=== PATIENT | female | born 1945 | race Caucasian/White ===

== ENCOUNTER → 2018-03-20 10:25 | Outpatient (CLI) | payer MEDICARE, OTHER, SELFPAY ==
--- NOTE | 2018-03-20 10:30 | BI_ITS ---
MAMMOGRAPHY - BILATERAL SCREENING REASON FOR EXAM: Female, 73 years old. Routine annual screening examination. PERTINENT HISTORY: Non-contributory. TECHNIQUE: Digital bilateral breast laura (3D mammographic acquisition) in the CC and MLO projections. 2-D mediolateral oblique (MLO) and craniocaudad (CC) views of both breasts were obtained. CAD: Full Field Digital Mammography with Computer Added Detection was performed. COMPARISON: Comparison is made with prior study dated February 21, 2017 and December 15, 2015. FINDINGS: Breast Composition: There are scattered areas of fibroglandular density. There are no dominant masses or suspicious calcifications. Stable small bilateral axillary lymph nodes. No other significant abnormalities are identified. There has been no significant change since the prior study. BI/SCREENING MAMM (CAD), BILAT IMPRESSION: Stable bilateral screening mammogram. Yearly follow-up mammogram recommended. (A) ASSESSMENT CATEGORY: BIRADS Category 2: Benign. A letter regarding these results will be sent to the patient by the facility within 30 days. Approximately 10% of breast cancers are not detected by mammography. A normal mammogram should not delay biopsy of a clinically suspicious abnormality. [id number] Electronically Signed: Sherman Donovan MD at 12:59 EST Tel [phone], Service support ,
== END ==
PROVIDERS: Family Provider Family Medicine; PCP Family Medicine; Referring Provider Obstetrics & Gynecology; Visit Provider Obstetrics & Gynecology
DX: Z12.31 Encounter for screening mammogram for malignant neoplasm of breast (principal)
CPT/HCPCS: 77063; 77067

== ENCOUNTER → 2019-05-14 | Outpatient (CLI) | payer MEDICARE, OTHER, SELFPAY ==
--- NOTE | 2019-05-14 08:30 | BI_ITS ---
MAMMOGRAPHY - BILATERAL SCREENING REASON FOR EXAM: Female, 74 years old. Routine annual screening examination. PERTINENT HISTORY: Non-contributory. TECHNIQUE: Digital bilateral breast bhumi (3D mammographic acquisition) in the CC and MLO projections. 2-D mediolateral oblique (MLO) and craniocaudad (CC) views of both breasts were obtained. CAD: Full Field Digital Mammography with Computer Added Detection was performed. COMPARISON: Comparison is made with prior study dated March 20, 2018 and February 21, 2017. FINDINGS: Breast Composition: There are scattered areas of fibroglandular density. There are no dominant masses or suspicious calcifications. Stable small benign-appearing bilateral axillary lymph nodes. No other significant abnormalities are identified. There has been no significant change since the prior study. BI/SCREEN MAMM (CAD) W/BHUMI BILAT IMPRESSION: Stable bilateral screening mammogram. Yearly follow-up mammogram recommended. (A) ASSESSMENT CATEGORY: BIRADS Category 2: Benign. A letter regarding these results will be sent to the patient by the facility within 30 days. Approximately 10% of breast cancers are not detected by mammography. A normal mammogram should not delay biopsy of a clinically suspicious abnormality. [id number] Electronically Signed: Sherman Donovan, at 10:20 EST , Service support ,
== END | disposition home or self-care (01) ==
LOC: OPBI 08:27
PROVIDERS: Family Provider Family Medicine; PCP Family Medicine; Referring Provider Obstetrics & Gynecology; Visit Provider Obstetrics & Gynecology
DX: Z12.31 Encounter for screening mammogram for malignant neoplasm of breast (principal)
CPT/HCPCS: 77063; 77067

== ENCOUNTER → 2019-12-31 | Outpatient (CLI) | payer MEDICARE, OTHER, SELFPAY ==
--- NOTE | 2019-12-31 15:45 | CT_ITS ---
ACR Level 3 findings have been noted. An addendum which confirms receipt of the report will follow. STUDY: CT RIGHT SHOULDER REASON FOR EXAM: Right shoulder pain. TECHNIQUE: The patient was scanned in a multi detector CT scanner. High resolution transaxial imaging was performed without the administration of intravenous contrast material. Sagittal and coronal images were reconstructed. Individualized dose optimization techniques were used for this CT. COMPARISON: MRI images 03/24/2012. FINDINGS: There is glenohumeral arthrosis with marginal osteophytes of the humeral head, mild subchondral cystic change of the glenoid and joint space narrowing (axial images 21-28). There are anchors in the humeral head. Status post subacromial decompression/excision of the distal clavicle. There is a small nodule in the right lung base (axial image 227) measuring 0.3 cm in greatest dimension. CT/Extremity Upper without Contra IMPRESSION: Glenohumeral arthrosis. Small pulmonary nodule in the right lung base (a follow-up CT in 12 months should be considered if the patient is high risk, no routine follow-up is necessary if the patient is low risk according to the Fleischner Society pulmonary nodule recommendations). Electronically Signed: Adam Brito MD at 11:42 EDT Tel , Service support ,
== END | disposition home or self-care (01) ==
LOC: CT 15:29
PROVIDERS: PCP Family Medicine; Referring Provider Specialist; Visit Provider Specialist
DX: M19.211 Secondary osteoarthritis, right shoulder (principal)
CPT/HCPCS: 73200

== ENCOUNTER → 2020-07-15 13:12 | Outpatient (CLI) | payer MEDICARE, OTHER, SELFPAY ==
[2020-06-24 10:11] VITALS: BMI 31.6
--- NOTE | 2020-07-15 13:14 | BI_ITS ---
MAMMOGRAPHY - BILATERAL SCREENING REASON FOR EXAM: Female, 75 years old. Routine annual screening examination. PERTINENT HISTORY: Non-contributory. TECHNIQUE: Digital bilateral breast bhumi (3D mammographic acquisition) in the CC and MLO projections. 2-D mediolateral oblique (MLO) and craniocaudad (CC) views of both breasts were obtained. CAD: Full Field Digital Mammography with Computer Added Detection was performed. COMPARISON: Comparison is made with prior examination dated 05/14/2019 and 03/20/2018. FINDINGS: Breast Composition: There are scattered areas of fibroglandular density. There are no dominant masses or suspicious calcifications. Stable benign-appearing bilateral axillary lymph nodes. No other significant abnormalities are identified. There has been no significant change since the prior study. BI/SCRN MAMM (CAD)W/BHUMI BILAT IMPRESSION: Stable bilateral screening mammogram. Yearly follow-up mammogram recommended. (A) ASSESSMENT CATEGORY: BIRADS Category 2: Benign. A letter regarding these results will be sent to the patient by the facility within 30 days. Approximately 10% of breast cancers are not detected by mammography. A normal mammogram should not delay biopsy of a clinically suspicious abnormality. [id number] Electronically Signed: Sherman Donovan MD at 14:23 EDT , Service support ,
--- NOTE | 2020-07-15 13:19 | BD_ITS ---
STUDY: DUAL ENERGY X-RAY ABSORPTIOMETRY / DXA REASON FOR EXAM: Female, 75 years old. Estrogen deficiency TECHNIQUE: Bone Mineral Density (BMD) measurements of lumbar spine and bilateral hips were obtained. COMPARISON: None. FINDINGS: Lumbar Spine (L1-L4): g/cm2 (0.992) / T-score (-1.4) / Z-score (0.3) Findings are suggestive of osteopenia with a low fracture risk. Left Femur Total: g/cm2 (0.779) / T-score (-1.8) / Z-score (-0.2) Left Femoral Neck: g/cm2 (0.797) / T-score (-1.7) / Z-score (0.1) Right Femur Total: g/cm2 (0.790) / T-score (-1.7) / Z-score (-0.1) Right Femoral Neck: g/cm2 (0.760) / T-score (-2.0) / Z-score (-0.2) BD/Dexa Bone Density Study IMPRESSION: The patient is considered osteopenic as outlined below according to World Chase Organization (WHO) criteria with a moderate fracture risk. Reference Information: The T-score is the number of standard deviations above or below the standard which is normal for young adults at their peak bone mineral density. The World Health Organization (WHO) interprets the T-scores as follows: Above -1 Normal bone density Between -1 and -2.5 Osteopenia Equal to / or below -2.5 Osteoporosis As a practical clinical guideline, osteopenia may be graded as follows: Mild -1 through -1.5 Moderate -1.6 through -2.0 Severe -2.1 through -2.4 The Z-score is the number of standard deviations above or below age-matched controls. A Z-score of less than -1.5 would be considered abnormal. References: 1. NIH Osteoporosis and Related Bone Diseases www osteo.org 2. International Society for Clinical Densitometry www iscd.org 3. National Osteoporosis Foundation www nof.org Electronically Signed: Sherman Donovan MD at 9:41 EDT , Service support ,
== END ==
PROVIDERS: PCP Family Medicine; Referring Provider Obstetrics & Gynecology; Visit Provider Obstetrics & Gynecology
DX: E28.39 Other primary ovarian failure (principal); Z12.31 Encounter for screening mammogram for malignant neoplasm of breast; Z78.0 Asymptomatic menopausal state
CPT/HCPCS: 77063; 77067; 77080

== ENCOUNTER 2021-03-24 13:48 | Outpatient (CLI) | payer MEDICARE, OTHER, SELFPAY ==
--- NOTE | 2021-03-24 13:52 | CT_ITS ---
STUDY: CT SCAN SHOULDER LEFT REASON FOR EXAM: Female, 76 years old. PREOP. Prior rotator cuff surgery. Continued pain. Limited range of motion. RADIATION DOSAGE (If Supplied By Facility): CTDIvol = ( 31.68 ) mGy, DLP = ( 600.47 ) mGycm. Individualized dose optimization techniques were used for this CT.? TECHNIQUE: Multiple axial tomographic images were obtained without intravenous contrast administration. Coronal and sagittal reconstruction was obtained as well. COMPARISON: None. FINDINGS: Metallic clips are seen in the humeral head in keeping with history of prior rotator cuff surgery. Marked degree of joint space narrowing at the glenohumeral joint with degenerative spur formation along the medial inferior aspect of the humeral head in the glenoid. There is evidence of a subchondral cystic changes in the humeral head as well as the glenoid. No evidence of subluxation. CT/Extremity Upper without Contra IMPRESSION: Moderate degree of joint space narrowing of the glenohumeral joint with spur formation and subchondral cystic changes. Metallic anchors in the humeral head in keeping with the patient''s history of prior rotator cuff surgery. Electronically Signed: Sherman Donovan MD at 14:29 EST , Service support ,
== END 2021-03-24 23:59 | disposition short-term general hospital (02) ==
LOC: CT 13:51
PROVIDERS: PCP Family Medicine; Referring Provider Specialist; Visit Provider Specialist
DX: M19.212 Secondary osteoarthritis, left shoulder (principal)
CPT/HCPCS: 73200

== ENCOUNTER 2021-05-13 07:04 | Observation (INO) | payer MEDICARE, OTHER, SELFPAY ==
--- NOTE | 2021-04-27 13:14 | HP.PCM_ITS ---
History and Physical History and Physical [facility] Patient Name: Sandhya Finn : 1945 From: ELIZABETH ROBERTSON PA-C DATE OF SURGERY: 05/13/2021 SCHEDULED PROCEDURE: left reverse total shoulder arthroplasty HISTORY OF PRESENT ILLNESS: Preoperative history and physical exam was performed on April 27, 2021. This is a 76-year-old female who is had ongoing pain in her left shoulder for several years. Patient is right-hand dominant. Patient has undergone a previous right reverse total shoulder arthroplasty by Dr. Saurabh Gunn on February 29, 2020. She is doing well from that procedure. Her left shoulder is continuing to give her problems with activities of daily living. She has difficulty getting dressed and doing her hair secondary to the pain. Patient's pain can reach a size N8/10 with activities. She states the pain has been progressively been getting worse over the past 1 year. Pain does awaken her at nighttime. She has also had a previous left shoulder arthroscopy with rotator cuff repair with Dr. Hussain Beaulieu in 2016. She feels weaker with the left shoulder. She has tried nonsteroidal anti-inflammatories, rest, home exercises without relief in symptoms. After failing conservative measures and discussing treatment options with Dr. Saurabh Gunn, the patient does wish to proceed with a left reverse total shoulder arthroplasty. Patient has a medical history pertinent for hypertension. We are obtaining surgical clearance from primary care physician Dr. Rodgers. She denies any recent chest pain, shortness of breath, fevers chills or recent infections REVIEW OF SYSTEMS: ROS: Const: Denies anorexia, anxiety, change in appetite, fever and weight change,hard of hearing, and vision problems. CV: Denies chest pain, heart murmur, irregular heartbeat and peripheral vascular disease. Resp: Denies asthma, cough, pneumonia, sleep apnea, shortness of breath, tuberculosis and wheezing. GI: Denies constipation, diarrhea, heartburn, nausea, bloody stools and vomiting, and difficulty swallowing. : Denies female genital problems. Denies incontinence. Musculo: Denies leg swelling, trouble walking and weakness and limp. Skin: Denies Raynaud's, history of shingles and tattoo. Neuro: Denies ambulatory dysfunction, dizziness, numbness/tingling and tremor. Psych: Denies anxiety, depression, insomnia, mental illness and stress. Floyd/Lymph: Denies anemia, bleeding/bruising tendency and past transfusion. Reviewed and updated. PAST MEDICAL HISTORY: Advance Care Plan: Other Directive, LIVING WILL Effective Date: 08/21/2015 Other Directive, P.O.A Effective Date: 08/21/2015 PMH: Medical Problems: Arthritis, High Blood Pressure Cancer - Skin Possible Scoliosis, Psoriasis, Covid-19 Vaccinated, pulmonary nodule, restless leg, Hypercholesterolemia Accidents: None Surgical Hx: Pilonidal Cyst - (1963) Tubal Ligation - 1977, [facility] Hysterectomy - (1994) Carpal Tunnel - (05/29/2007) DR. BEAULIEU, [facility] RT Shoulder Arthroscopy W/Rotator Cuff Repair - (05/26/2012) [facility] @ [facility] Shoulder Arthroscopy LT - (10/15/2015) [email or web address] Shoulder Replacement RT - (02/19/2020) [facility] AT [facility] Anesthesia Complications: None Assistive Devices: Glasses - READING Reviewed and updated. SOCIAL HISTORY: SH: Marital: .Occupation: Retired.Work Status: Retired.Hand Dominance: Right- handed. Personal Habits: Tobacco Use: Patient has never smoked.Cigarette Use: Never.Smokeless Tobacco: Never Used Smokeless Tobacco.E-Cigarette Use: Never used.Alcohol: Occasionally.Drug Use: Denies Use.Enjoy Exercising: Daily. Reviewed and updated. VITALS: Ht: 64 Wt: 180lb Wt k.648 BMI: 30.9 BP: 124/82 Pulse: 66 Resp: 14 T: 97.5 T: 36.4C Pain Level: 9 ALLERGIES: Sulfa - Sick Sulfa Drug Atorvastatin MEDICATIONS: Multivitamins 1 po qday, Radha 180 mg 1 PO qdaily, Baby Aspirin 81 mg 1 tab PO daily, Calicum+D 1 tab PO daily, Biotin 5000 mcg 1po qday, Quinapril HCL 40 mg 1 tab PO daily, Rosuvastatin Calcium 20 mg 1po qday, Prevagen 10 mg 1po qday PRE-OP EXAM: General appearance:NORMAL Other: Eyes: Conjunctivae and lids: NORMAL Pupils: ERR Ears, Nose, Mouth, and Throat: NORMAL Other: Inspection of lips, teeth and gums: NORMAL Other: Neck: Examination of neck: no masses noted. Respiratory: Assessment of respiratory effort: NORMAL Other: Auscultation of lungs: clear to auscultation no wheezes, rhonchi or rales. Cardiovascular: Auscultation of heart: regular rate and rhythm, no murmurs, gallops or rubs. PHYSICAL EXAMINATION: Left shoulder is cool to touch without erythema or signs of infection. Previous arthroscopic incisions are well-healed without erythema or infection. She does get crepitus with range of motion of the left shoulder. She has tenderness to palpation of the anterior and lateral left shoulder. Range of motion: Forward elevation 130 on the left, external rotation 30 on the left, internal rotation T9 on the right and L2 on the left. Resisted range of motion: 4/5 on the left involving supraspinatus and internal rotation. Sensation intact to light touch axillary, radial, median, ulnar nerve distribution. IMAGING STUDIES: Previous x-rays of the left shoulder reveals severe glenohumeral joint space narrowing with subchondral sclerosis and osteophyte formation consistent with stage IV osteoarthritis. Previous anchors from rotator cuff repair are present. IMPRESSION: 1. Severe left shoulder glenohumeral osteoarthritis 2. Hypertension 3. History of skin cancer 4. Psoriasis 5. History of pulmonary nodule 6. Restless leg syndrome 7. Hypercholesterolemia PLAN: Dr. Saurabh Gunn did discuss and review with the patient all treatment options including surgical versus nonsurgical options. Patient does wish to proceed with the above-stated procedure. Potential risks, benefits, and complications of the procedure were discussed in detail including but not limited to , infection, nerve and blood vessel damage, persistent pain, numbness, tingling, paresthesias, blood clot, pulmonary embolism, and requirement for possible further surgery. The patient expressed full understanding and has no further questions for the doctor. Patient does agree to proceed with the above-stated procedure and has signed the surgery consent form. We discussed the current risks associated with COVID 19. This does include the risk of exposure while in the hospital. Patient was reassured local hospitals have low infection rates and are taking all necessary precautions to avoid exposure to patients. In addition, we discussed strategies that can be used to help limit exposure including those that limit the patient's time in the hospital. Also using strategies to limit the patient's need for continued inpatient services after being discharged from the hospital. Patient was notified that we will need to comply with any screening or testing the hospital wishes to perform or that surgery may be delayed for any positive results. This dictation was created using voice recognition software. Phonetic and/or grammatical errors may exist. ___ I have re-examined the patient. There are no clinical changes since date of exam. ___ See progress notes for changes. ___ Dictated on admission Date: Time: Signature:
[2021-05-01 10:52] LABS: Magnesium 2.2 mg/dL (1.6-2.6)
[2021-05-13] VITALS (12 sets, daily range): BP systolic 131–148; BP diastolic 74–84; PULSE 63–97; RESP 16–18; TEMP 36.2–37; O2SAT 93–100; BMI 31.6; BMI 31.5
[2021-05-13] MEDS: Lactated Ringers 1,000 ML 999 ML IV ×2 (06:40→11:15)
[2021-05-13] MEDS: Acetaminophen 500 MG Tablet 1000 MG PO ×3 (06:55→21:27)
[2021-05-13] MEDS: Celecoxib 200 MG Capsule 400 MG PO (06:56)
[2021-05-13] MEDS: Gabapentin 600 MG Tablet PO (06:56)
--- NOTE | 2021-05-13 07:30 | OP.PCM_ITS ---
Report of Operation Pre-Operative Diagnosis: Right knee primary osteoarthritis Post-Operative Diagnosis: Right knee primary osteoarthritis Surgery/Procedure Performed:: Right minimally invasive computer navigated total knee replacement Description of Surgical Findings:: Stable knee with good patella tracking Surgeon: Saurabh Gunn fork operator: Ross Burris Type of Anesthesia: Spinal Anesthesiologist: Gaurav Cerda Special Medications: 2 g Ancef, 1 g TXA at incision, 1 g TXA closure, 10 mg Decadron, joint cocktail (5 mg Duramorph, 30 mL of 0.5% Ropivicaine, 1000 units of epinephrine, 30 mg of Toradol) Specimen's removed: Bony cuts Description of Procedure: Implants used: 1. [employer] cemented distal femur: 2. [employer] tibial baseplate: 3. [employer] polyethylene: 4. [employer] patella component: Brief history operative indications: 76-year-old F with history of right knee osteoarthritis with radiographic findings with loss of joint space, osteophyte formation and subchondral sclerosis. Failed conservative measures as mentioned in the H&P. Discussion of total knee arthroplasty as well as risk and benefits were discussed the patient including but not limited to blood loss, DVTs, PEs, neurovascular damage, general risk of anesthesia including loss of life, and stiffness or instability were discussed with patient. Patient demonstrated understanding and was able to sign informed consent. Patient had allergies to nickel so we elected to proceed with a computer navigated nickel free knee. Procedure: On the date of procedure patient's right lower extremity was marked in the preoperative area. The patient was then taken back to the operating room where the patient was placed on the table in the supine position. All bony prominences were identified a well-padded. Anesthesia assumed control of the C-spine and airway and remained controlled throughout the remainder of the procedure. A tourniquet was placed on the right upper thigh and the leg was prepped in a sterile fashion. The surgeon then scrubbed at this time. Upon reentering the room the right lower extremity was draped in a standard orthopedic fashion. A timeout was then called and everyone agreed upon the side, the site, the procedure to be performed, patient's identity and antibiotics given. Esmarch bandage was used to exsanguinate the extremity and the tourniquet was placed up to 250 mmHg with the knee in flexion. A midline skin incision was made and sharp dissection was taken down through skin subcutaneous tissue and fat. The standard medial parapatellar incision was made and the patella was subluxed laterally. The standard deep MCL release was done and the fat pad was resected. Next our attention was directed to the femur. Navigation pins were placed, navigation was registered. The distal femoral cutting block was pinned into plac e and [] mm of distal femur resection was completed. The distal femoral cut was verified with navigation. The knee was then placed in deep flexion in the standard [employer] sizing guide was used to place the femoral component in 3? external rotation based on the posterior condyles. A size [] 4-in-1 cutting block was selected and pinned into place. The anterior cut was then made and checked for notching. The subsequent anterior chamfer cuts, posterior condylar cuts and posterior chamfer cuts were made while ensuring the MCL and LCL were protected. Our attention was then turned to the tibia where the navigation pins were placed, navigation was registered. [employer] tibial cutting guide was used to make the appropriate tibial cut 90 degrees from the mechanical axis. Navigation was then used to verify the cut. A size [] tibial base plate was selected. the knee was flexed to 90 degrees and the soft tissues and posterior osteophytes were removed from the joint. 40 cc of the periarticular injection was injected into the posterior medial corner of the joint. The appropriate trials were then placed on the femur and tibia. A trial polyethylene was trialed to ensure proper balancing and stability of the knee. Patella tracking, was then verified and corrected appropriately as needed. The appropriate tibial internal rotation was then marked with a bovie. Our attention was then directed to the patella. The patella was everted and a flat resection was made. The lug holes were drilled and the patella trial was placed. Patellar tracking was checked and deemed appropriate. Once we were happy lug holes were drilled for the femur and trial components were removed. the tibia was subluxed and pinned into place and the keel was punched and the canal was reamed. Final components were verified and opened, and cement was mixed in a vacuum. Sukh[employer] cement was used. The wound was copiously irrigated with normal saline. When the cement was ready the components were cemented into place starting with the tibia, femur and finally the patella. The trial poly component was placed and the knee was placed in full extension. All excess cement was removed in the process. Once the cement had cured the tracking, alignment and balance were verified and a size [] mm polyethylene component was placed. Once the final components were placed the wound was copiously irrigated with normal saline solution and the periarticular injection was given. The wound was closed in a layer pedraza fashion using #1 vicryl interrupted sutures for the arthrotomy, 2-0 interrupted Vicryl suture for the subcuticular layer and yaima for final skin closure. A sterile compressive dressing was then placed. The patient was then awakened from anesthesia, transferred to the [facility] and transferred to the PACU for recovery. Post op plan DVT ppx: ASA 81mg BID, thigh high compression stockings Follow up: in office in 2 weeks for wound check PT: to start POD #0 at hospital, outpatient PT should be arranged. My physician journeyman operator assistant was a vital part of this case. He was important in appropriate retraction during the case, and protection of soft tissues during bony cuts. His intimate knowledge of the case and my steps aided in safe and expedient completion of the procedure as well as appropriate position of the leg during the case. He was also vital in assisting with closure under my direct supervision. Due to the complexity of this case robotic arm was used to assist in the surgery to improve accuracy and clinical outcomes. Complications No intraoperative complications Admit VTE Documentation VTE Present on Admission: No VTE Mechan Device Prophylaxis: SCD's and Thigh High HAILE Hose VTE Pharm Prophylaxis ordered?: Yes
[2021-05-13] MEDS: Cefazolin 2 GM in 0.9% Normal Saline 100 ML IV (08:55)
[2021-05-13] MEDS: TXA 1000mg in NS100 100ml (IVPB at Incision) 660 MG IV (09:05)
--- NOTE | 2021-05-13 10:28 | OP.PCM_ITS ---
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 [place] reunion glenoid baseplate 2. Sukhdeep reunion 36 mm, 2 mm, eccentric 2 mm Glenosphere 3. Sukhdeep reunion 36mm, 4mm humeral liner 4. [place] reunion reverse TSA humeral adapter tray 2mm 5. [place] reunion humeral stem primary press-fit 16mm size Brief history/Operative indications: 76 yo f with history of left shoulder pain and cuff tear arthropathy. Patient failed conservative measures as mentioned in the H&P. After discussion of risk and benefits of reverse total shoulder replacement including but not limited to blood loss, DVTs, PEs, nerve vessel damage, infection, general risk of anesthesia including loss of life, instability and stiffness patient demonstrating understanding wish to proceed was able to sign informed consent. Medical clearance was obtained. Procedure: On the date of the procedure, patient's left upper extremity was marked in the preoperative area. Patient was taken back to the operating room where they were placed on the table in the supine position. Anesthesia assumed control of the C-spine and airway, then administered anesthetic. All bony prominences were identified well-padded, the head was secured and the patient was placed in the beachchair position at about 35? inclination. Anesthesia remained in control of the C-spine airway throughout the remainder of the procedure. Patient was then appropriately fastened to the table and the left upper extremity was prepped in a sterile fashion. The surgeons then scrubbed. Upon reentering the room, the left upper extremity was draped in a sterile fashion and the incision was marked out. Timeout was called, everyone agreed upon the side, the site, the procedure to be performed, patient identity and antibiotics given. Incision was taken down through skin and subcutaneous tissue, fat down to fascia. The stripe of the deltopectoral interval and cephalic vein were identified and blunt dissection was used to retract the deltoid. The cephalic vein was retracted laterally. Clavipectoral fascia was then incised and a cobra retractor was placed in the wound. The proximal one third of the pectoralis major insertion was released. Pectoralis tendon insertion was used to tenodesed the biceps tendon which was identified in the bicipital groove. Tenodesis was done with #1 Vicryl. Proximally we followed the biceps tendon after transecting it into the rotator interval. The rotator interval was split and the arm was externally rotated. The split was 1 cm medial to the bicipital groove. Subscapularis tendon was released. We released down the anterior portion of the humeral head and a muhammad elevator was used to release the inferior portion of the humeral head. The arm was externally rotated and the shoulder was dislocated. The humeral head was then cut at its natural retroversion. Once his humeral head cut was made humerus was retracted out of the way and the glenoid was exposed. After exposing the glenoid, the labrum and the remaining proximal biceps were debrided. At this time we are able to view the entire outer edge of the glenoid. A central pin was placed we sequentially reamed over this central pin to 36mm. Once this was completed the central screw was measured and found to be. The glenoid baseplate was screwed into place. Wound was closely irrigated out with normal saline we then drilled sequentially for 2 screws. Screws were placed superiorly and inferiorly and tightened down the screws. Once the screws were appropriately tightened into place the glenoid baseplate was compressed against the exposed subchondral bone. A 36mm glenosphere was impacted into place engaging the West taper. Attention was then turned towards the humerus. The humerus was again externally rotated exposing the proximal portion of the humerus. Central canal finder was then used to open up the canal. We reamed to a 16mm reamer. We then broached to a 16mm stem. We trialed the 4mm liner, with the 2mm humeral baseplate. We obtained an adequate reduction at this time with a nice stable shoulder. Good internal rotation to the gluteus, forward elevation to 140?, external rotation to 20?. Final components were then assembled on the back table, trials were removed and the wound was copiously irrigated with normal saline after dislocating the shoulder. Once the final components were assembled they were impacted into place. Shoulder was then reduced and found to be stable with good range of motion. Subscapularis tendon was repaired with a #2 FiberWire suture. The wound was with chlorhexidine solution then copiously irrigated out with a 1 L normal saline lavage. The deltopectoral fascia was then closed using #1 Vicryl skin was closed using 2-0 Vicryl interrupted sutures and final skin closure was done with 3-0 Monocryl. Steri-Strips are placed for final skin closure. Sterile dressing was placed patient was then placed in a sling and awakened by anesthesia. Patient was then transferred to the PACU for recovery. Postoperative plan: Patient will be admitted to the hospital overnight. They will get physical therapy starting in 2 weeks with normal postoperative regimen. Patient will be placed on aspirin 81 mg twice daily for DVT prophylaxis. The first posto perative appointment will be in 2 weeks for wound check and initiation of phase 1 physical therapy. During the course of the procedure the physician assistant offset press operator played a vital role. His intimate knowledge of my steps in the procedure aided in safe and expedient completion of the procedure. The PA played a vital rolls in positioning particularly in obtaining the appropriate beach chair position and securing the patient's body and head to the table. The PA was also vital in the retraction of soft tissues during the exposure and especially the glenoid work as this is a vital part of the procedure to prevent neurovascular damage. the PA was also vital and protecting soft tissues during times of bony cuts and reaming. He also played a vital role in closure with my direct supervision. The PA was also important during reduction and dislocation of the joint and trials intraoperatively. Complications No intraoperative complications Admit VTE Documentation VTE Present on Admission: No VTE Mechan Device Prophylaxis: SCD's VTE Pharm Prophylaxis ordered?: Yes
[2021-05-13] MEDS: TXA 1000mg in NS100 100ml (IVPB at Closure) 660 MG IV (10:31)
--- NOTE | 2021-05-13 11:35 | RAD_ITS ---
STUDY: X-RAY - LEFT SHOULDER REASON FOR EXAM: Female, 76 years old. Post op -- AP and Lateral X-Ray of operative shoulder in PACU TECHNIQUE: 2 view(s) of the shoulder. COMPARISON: None. FINDINGS The patient is status post left reverse shoulder replacement. There is good alignment. . RAD/Shoulder min 2 Views IMPRESSION: Status post left reverse shoulder replacement. There is good alignment. Postoperative soft tissue changes. Electronically Signed: Sherman Donovan MD at 12:07 EST ,
[2021-05-13] MEDS: Lactated Ringers 1,000 ML 125 ML IV (12:52)
--- NOTE | 2021-05-13 13:36 | NURSING ---
Pt voided 350 cc's clear yellow urine on the bedpan. Dr Gunn in to see patient and in room currently with patient.
--- NOTE | 2021-05-13 13:42 | PCM.PN.HOSP ---
Subjective Subjective Patient today underwent a left reverse total shoulder replacement. Since surgery, she is woken up, she has been experiencing diplopia. She is never had this with any prior surgeries but she does state that it is getting better. Her left arm is numb due to the nerve blocks that she had but denies any other neurologic issues. Objective Data Objective Data Vital Signs: Vital Signs Temp Pulse Resp BP Pulse Ox 36.3 C L 78 16 136/76 H 97 05/13/21 13:11 05/13/21 13:11 05/13/21 13:11 05/13/21 13:11 05/13/21 13:11 Oxygen Flow Rate (L/min) 4 Oxygen Delivery Method Room Air Weight: 80.739 kg Body Mass Index (BMI) 31.5 Intake & Output: Intake and Output for Last 24 Hours 05/11/21 05/12/21 05/13/21 23:59 23:59 23:59 Intake Total 2710 / 2710 Balance 2710 / 2710 Lab / Micro Data Micro: Microbiology 05/01/21 10:12 Interface Orders Nasal Screen MRSA/MSSA - Final Radiography Diagnostic Testing: Radiology Impression Shoulder X-Ray 05/13/21 11:35 IMPRESSION: Status post left reverse shoulder replacement. There is good alignment. Postoperative soft tissue changes. Electronically Signed: Sherman Donovan MD at 12:07 EST , Physical Exam Const alert, no apparent distress and average body habitus HEENT head/scalp atraumatic, moist oral mucous membranes and oropharynx normal Head and Scalp: normocephalic Eyes EOMs intact bilaterally Eyes Narrative: Bilateral lateral nystagmus. No reproducible dizziness with lateral gaze Resp normal respiratory effort, no retractions, no use of accessory muscles and clear to auscultation bilaterally Cardio regular rate, regular rhythm, S1 normal heart sound and S2 normal heart sound GI normal to inspection, nondistended, normoactive bowel sounds, soft to palpation, non-tender and non-distended Extremity Extremity Narrative: Left arm in sling Neuro CN's II-XII intact bilaterally Neuro Narrative: Sensation intact in the lower extremities Sensorium / Orientation: awake and alert Assessment & Plan Assessment/Plan (1) Diplopia: PLAN: 1. Diplopia Occurred after surgery but is improving. Suspect related with the anesthesia and surgery Would continue to monitor but patient advised to alert us of any new symptoms such as unilateral weakness, difficulty speaking so forth. 2. Hypertension Fair control Continue with BRANDON inhibitor 3. Psoriasis Stable 4. Status post left reverse total shoulder replacement Management per orthopedics 5. VTE prophylaxis with twice daily aspirin as prescribed by orthopedics. Thank for the consult. The hospital service continue to follow along but please contact for any questions. Charges/Coding Visit Charges OBSV E&M: 27772 Subsequent observation care L1
[2021-05-13] MEDS: Lactated Ringers 1,000 ML 75 ML IV (14:40)
[2021-05-13] MEDS: Famotidine 20 MG Tablet PO (14:45)
[2021-05-13] MEDS: Ondansetron 4 MG/2 ML Vial IV (15:42)
[2021-05-13] MEDS: Cefazolin 1 GM/50 ML BAG IV (16:38)
[2021-05-13] MEDS: Aspirin E.C. 81 MG Tablet PO (16:38)
[2021-05-13] MEDS: Ensure Surgery 237 ML LIQUID PO (16:41)
[2021-05-13] MEDS: Rosuvastatin 20 MG Tablet PO (21:27)
[2021-05-13] MEDS: Senna/Docusate Sodium 1 Tablet 2 TABLET PO (21:27)
[2021-05-14] MEDS: Cefazolin 1 GM/50 ML BAG IV (01:00)
[2021-05-14 01:11] VITALS: BP 128/72; PULSE 72; RESP 16; TEMP 36.8; O2SAT 94
[2021-05-14] MEDS: Acetaminophen 500 MG Tablet 1000 MG PO (04:51)
[2021-05-14 05:11] VITALS: BP 147/83; PULSE 92; RESP 16; TEMP 37.1; O2SAT 94
[2021-05-14 06:47] LABS: Hematocrit 33.9 % (37-47); Hemoglobin 11.3 g/dL (12.0-15.0); Mean Corp Hgb Conc 33.3 g/dL (32-36); Mean Corpuscular Hgb 30.5 pg (27.0-32.0); Mean Corpuscular Volume 91.4 fL (81-99); Mean Platelet Vol. 9.5 fl (6.2-12.0); Platelet Count 242 K/mm3 (150-450); RBC Distribution Width CV 12.6 % (11.6-14.6); RBC Distribution Width SD 41.9 fl (35.1-43.9); Red Blood Count 3.71 M/mm3 (4.2-5.4); White Blood Count 10.1 K/mm3 (4.4-11.0)
[2021-05-14 07:07] LABS: Anion Gap 5 (5-15); BUN 11 mg/dL (7-18); BUN/Creat Ratio 16.5 RATIO (10-20); Calcium,Total 9.1 mg/dL (8.5-10.1); Chloride 105 mmol/L (98-107); Creatinine, Serum 0.67 mg/dL (0.55-1.02); EST Glomerular Filtration Rate 92 mL/min (>60); Est Glom Filt Rate - Afr Amer 111 mL/min (>60); Estimated Creatinine Clearance 40.83 ml/min; Glucose 118 mg/dL (74-106); Sodium Level 136 mmol/L (136-145)
--- NOTE | 2021-05-14 09:26 | PN.ORTHO_ITS ---
Subjective Subjective The patient was sitting in bed upon examination. Patient denies any chest pain, shortness of breath, dizziness, lightheadedness, nausea or vomiting, or calf pain. Pain is controlled on medications. No adverse overnight events. Patient did have diplopia yesterday which has resolved. She states the numbness and tingling has resolved. Her pain has increased since the block worn off but medications have been helpful. Objective Data Objective Data Vital Signs: Vital Signs Temp Pulse Resp BP Pulse Ox 98.8 F 92 16 147/83 H 94 05/14/21 05:11 05/14/21 05:11 05/14/21 05:11 05/14/21 05:11 05/14/21 05:11 Oxygen Flow Rate (L/min) 4 Oxygen Delivery Method Room Air Weight: 80.739 kg Body Mass Index (BMI) 31.5 Intake & Output: Intake and Output for Last 24 Hours 05/12/21 05/13/21 05/14/21 23:59 23:59 23:59 Intake Total 3660 / 3660 2025. / Balance 3660 / 3660 / Lab / Micro Data Result Diagrams: 05/14/21 06:10 05/14/21 06:10 Labs: Laboratory Results - last 24 hr 05/14/21 06:10: WBC 10.1, RBC 3.71 L, Hgb 11.3 L, Hct 33.9 L, MCV 91.4, MCH 30.5, MCHC 33.3, RDW Std Deviation 41.9, RDW Coeff of Jerry 12.6, Plt Count 242, MPV 9.5 05/14/21 06:10: Sodium 136, Potassium 4.0, Chloride 105, Carbon Dioxide 26.0, Anion Gap 5, BUN 11, Creatinine 0.67, Estim Creat Clear Calc 40.83, Est GFR (MDRD) Af Amer 111, Est GFR (MDRD) Non-Af 92, BUN/Creatinine Ratio 16.5, Glucose 118 H, Calcium 9.1 Micro: Microbiology 05/01/21 10:12 Interface Orders Nasal Screen MRSA/MSSA - Final Radiography Diagnostic Testing: Radiology Impression Shoulder X-Ray 05/13/21 11:35 IMPRESSION: Status post left reverse shoulder replacement. There is good alignment. Postoperative soft tissue changes. Electronically Signed: Sherman Donovan MD at 12:07 EST , Physical Exam Narrative Vital signs stable, afebrile Dressing is clean, dry, intact Ultra-sling fitting appropriately Sensation intact to axillary, radial, median, and ulnar distribution Motor intact to AIN, PIN, and ulnar nerve Const alert, oriented x3 and no apparent distress Assessment & Plan Assessment/Plan (1) Status post reverse total arthroplasty of left shoulder: PLAN: 1. S/P left reverse total shoulder arthroplasty POD #1 2. Continue Pain Medications: Tylenol, meloxicam, oxycodone. I discussed with the patient while taking the aspirin and meloxicam she will be placed on famotidine. If having any stomach irritation she will stop the meloxicam. She voiced understanding and agreement. 3. DVT Prophylaxis: Aspirin 81 mg twice daily for DVT prophylaxis for 2 weeks postoperatively 4. PT/OT: Continue with UltraSling at all times except to come out for range of motion exercises of the elbow and pendulum exercise 3 times daily. No range of motion of the postoperative shoulder until outpatient physical therapy begins. Outpatient physical therapy will begin 2 weeks postoperatively after follow-up with [facility] with x-rays and incision check. 5. H & H: 11.3/33.9, asymptomatic. Postoperative anemia secondary to acute blood loss from surgery without any intra operative complications. 6. Encouraged Incentive Spirometry 7. Continue postoperative medical management per medicine: Patient's diplopia has resolved. Medically she appears to be doing well. Vitals are stable and lab work stable. 8. Disposition: Plan will be for discharge home today as long as pain is well controlled, cleared by medicine and tolerates therapy. Patient has outpatient physical therapy established to begin after her 2-week postoperative visit at our office. She will follow-up in 2 weeks at our office for x-rays on arrival and incision check. Medications will be E scribed to [facility]. Patient will follow-up per postop instructions. I have reviewed the [place] Automated Rx Reporting System (OARRS) report for this patient for refill pattern and other prescriber involvement as part of the appropriate surveillance for the provision of acute and chronic controlled medications. The report was requested and reviewed on the date of this entry and was considered in the prescribing process.
--- NOTE | 2021-05-14 09:31 | PCM.DC ---
Discharge Instructions Diet Discharge Diet: No restrictions Activity Discharge Activity: May Not Drive (while taking narcotic pain medications.) May shower in (days): 1 (Dressing must be intact to skin. Turn dressing away from water.) Ice area for (Minutes): 20 (Every 1-2 hours while awake. Please place barrier between skin and ice pack.) Weight Bearing Status: No weight bearing (Postoperative upper extremity) Additional Activity Instructions:: Continue with UltraSling at all times. Please come out of UltraSling 3 times daily working on elbow range of motion and pendulum exercises. No range of motion of postoperative shoulder. Will begin outpatient physical therapy after 2-week scheduled follow-up. Dressing / Incision Call your doctor if your incision/area has: Continuous Slow Oozing, Sudden Increased Bleeding, Increased Pain/ Swelling, Increased Redness and Foul Smelling Discharge Call your doctor if you observe: Fever of 101 or Higher, Shortness of breath, Chest pain and Uncontrolled pain Remove Dressing in: 4 days (Okay to remove dressing on May 18, 2021) Additional Dressing/Incision Instructions:: Follow [facility] Post-op Instructions. Once postoperative dressing has been removed only use gentle soap and water over the incision. Do not use any ointments, Neosporin, salves, alcohol pads over the incision for 6 weeks postoperatively. Do not submerge underwater for 6 weeks postoperatively. Do NOT use alcohol with narcotic pain medication. Do NOT make important decisions while taking narcotic medication. If you have problems with taking your medication (rash, itching, nausea, etc.) call the office at once. Follow Up Care Test Results: Test results from this visit will be discussed in further detail at your follow-up appointment, if applicable. Discharge Plan Admission Admit Date/Time: 05/13/21 07:04 Attending Provider: Graham Espinoza Primary Care Provider: Dwayne Rodgers Consulting Providers: Gaurav Cerda ; Gaurav Osborne Discharge Orders/Prescriptions Prescriptions: New acetaminophen 500 mg Tablet 1,000 mg PO TID Qty: 100 RF: 0 aspirin 81 mg Tablet,Delayed Release (Dr/Ec) 81 mg PO BIDCM 14 Days Qty: 28 RF: 0 famotidine 20 mg Tablet 20 mg PO DAILY 14 Days Qty: 14 RF: 0 meloxicam 7.5 mg Tablet 7.5 mg PO BID Qty: 60 RF: 0 oxycodone 5 mg Tablet 5 - 10 mg PO Q4H PRN PRN (Reason: Pain Score 4-10) 5 Days Qty: 42 RF: 0 sennosides-docusate sodium [Stool Softener-Stimulant Laxat] 8.6-50 mg Tablet 2 tab PO BID Qty: 20 RF: 0 Continued quinapril 40 mg tablet 40 mg PO DAILY RF: 0 biotin 5 mg capsule 5 mg PO DAILY RF: 0 multivitamin 1 TABLET tablet 1 tablet PO DAILY RF: 0 rosuvastatin [Crestor] 20 MG tablet 20 mg PO DAILY RF: 0 calcium carbonate-vitamin D3 1 EACH tablet 1 each PO DAILY RF: 0 ergocalciferol (vitamin D2) 1,000 unit Capsule 1,000 unit PO DAILY RF: 0 choline [id number] Tablet 1 tab PO DAILY RF: 0 Discontinued aspirin 81 MG tablet,chewable 81 mg PO DAILY@0800 RF: 0 Referrals / Follow Up: Physical,Therapy [Other] - 05/28/21 10:30 am Dwayne Rodgers MD [Primary Care Provider] - Ross Burris PA-C [PHYSICIAN CAD TECHNICIAN] - 05/28/21 1:45 pm Disposition Disposition (needs filled in before D/C Order can be placed): Home, Self Care
[2021-05-14] MEDS: Lisinopril 40 MG Tablet PO (09:58)
[2021-05-14] MEDS: Calcium Carb/Vitamin D 1 TABLET Tablet PO (09:58)
[2021-05-14] MEDS: Aspirin E.C. 81 MG Tablet PO (09:58)
[2021-05-14] MEDS: Senna/Docusate Sodium 1 Tablet 2 TABLET PO (09:58)
[2021-05-14] MEDS: Multivitamins,Therapeutic Tablet 1 TABLET PO (09:58)
[2021-05-14] MEDS: Famotidine 20 MG Tablet PO (09:59)
[2021-05-14] MEDS: Cholecalciferol (VIT D3) 25 MCG TABLET (1,000 UNITS) PO (10:02)
[2021-05-14] MEDS: Ketorolac 15 MG/ML Vial IV (10:02)
--- NOTE | 2021-05-14 10:30 | CASEMGMT ---
RN CM Face to Face with patient for initial transition planning/care coordination assessment. RN CM introduced self and role at [facility]. Patient sitting in chair, alert and oriented, at bedside. Patient willing to participate in assessment and is able to answer all questions appropriately. Care providers, pharmacy, and demographics verified. Patient wishes to discharge home, denies need for home health at this time. Patient states she has no further needs or concerns at this time. CM to follow for discharge planning needs that may arise. PCP: Vishal Specialists: parveen Gunn Preferred Pharmacy: [facility] retail at discharge Insurance: David ROSENBAUM Prescription Benefit: yes Living Will/HPOA: yes, Akash Finn HPOA LNOK: Living Arrangements: Patient lives with in a single story home with 2 steps and railing to enter the home. Patient was independent prior to surgery Transportation: DME/HHC: Patient has cane and raised toilet at home. Patient denies previous HHC or SNF. Patient to follow-up with ortho in 2 weeks and start outpatient therapy. Disposition Plan: Patient to discharge home with family support and follow-up plans in place. Miryam BLANTON, RN, CM
--- NOTE | 2021-05-14 12:01 | CASEMGMT ---
OLINDA KING in to discuss NOVAK form with patient. RN CHRISTINE explained NOVAK form, patient voiced understanding. Patient signed NOVAK form and filed in chart. Patient provided with copy of signed NOVAK form. Patient had no further questions or concerns at this time.
== END 2021-05-14 12:40 | disposition home or self-care (01) ==
LOC: SDC 08:43 → MS3 08:43
PROVIDERS: Anesthesiology; Admitting Provider Specialist; PCP Family Medicine; Referring Provider Specialist; Visit Provider Internal Medicine
PROC: (CPT 23472; principal; 2021-05-13 08:15)
DX: M19.012 Primary osteoarthritis, left shoulder (principal); I10 Essential (primary) hypertension; L40.9 Psoriasis, unspecified; G25.81 Restless legs syndrome; E78.00 Pure hypercholesterolemia, unspecified; R91.1 Solitary pulmonary nodule; Z79.82 Long term (current) use of aspirin; Z79.899 Other long term (current) drug therapy
CPT/HCPCS: 23472; 01638; 64415; 36415; 73030; 80048; 83735; 85027; 87077; 87081; 96365; 96366; 96375; 97166; 99218; 99251; C1776; J7050; J7120; G0378; G0463; J2405

== ENCOUNTER → 2021-07-23 | Outpatient (CLI) | payer MEDICARE, OTHER, SELFPAY ==
[2020-06-24 10:11] VITALS: BMI 31.6
--- NOTE | 2021-07-23 08:09 | BI_ITS ---
MAMMOGRAPHY - BILATERAL SCREENING REASON FOR EXAM: Female, 76 years old. Routine annual screening examination. PERTINENT HISTORY: Non-contributory. TECHNIQUE: Digital bilateral breast bhumi (3D mammographic acquisition) in the CC and MLO projections. 2-D mediolateral oblique (MLO) and craniocaudad (CC) views of both breasts were obtained. CAD: Full Field Digital Mammography with Computer Added Detection was performed. COMPARISON: Comparison is made with prior study of 07/15/2020 and 05/14/2019. FINDINGS: Breast Composition: There are scattered areas of fibroglandular density. There are no dominant masses or suspicious calcifications. Stable small benign appearing bilateral axillary nodes. No other significant abnormalities are identified. There has been no significant change since the prior study. BI/SCRN MAMM (CAD)W/BHUMI BILAT IMPRESSION: Stable bilateral screening mammogram. Yearly follow-up mammogram recommended. (A) ASSESSMENT CATEGORY: BIRADS Category 2: Benign. A letter regarding these results will be sent to the patient by the facility within 30 days. Approximately 10% of breast cancers are not detected by mammography. A normal mammogram should not delay biopsy of a clinically suspicious abnormality. [id number] Electronically Signed: Sherman Donovan MD at 9:04 EDT ,
== END | disposition home or self-care (01) ==
LOC: OPBI 07:55
PROVIDERS: PCP Family Medicine; Visit Provider Obstetrics & Gynecology
DX: Z12.31 Encounter for screening mammogram for malignant neoplasm of breast (principal)
CPT/HCPCS: 77063; 77067

== ENCOUNTER 2021-09-08 05:18 | Day surgery (SDC) | payer MEDICARE, OTHER, SELFPAY ==
[2021-09-08] VITALS (15 sets, daily range): BP systolic 95–141; BP diastolic 57–126; PULSE 59–84; RESP 13–18; TEMP 36.2–36.7; O2SAT 91–100; BMI 30.9
[2021-09-08] MEDS: Lactated Ringers 1,000 ML 15 ML IV (05:56)
--- NOTE | 2021-09-08 06:11 | PCM.HP.STD ---
[facility] - General General Date of Service: 09/08/21 HPI Narrative IAIN AZUL, is a 76 F who presents today via open access for screening colonoscopy. Previous colonoscopy was 10 years ago. She had a maternal uncle had colon cancer. She does take low-dose aspirin therapy 81 mg daily. She denies any abdominal pain. No bright red blood per rectum or melena. She otherwise enjoys steady health. She has no specific concerns today. [facility] Medical History (Updated 09/03/21 @ 10:44 by Christel Couch) Arthritis High cholesterol History of retinal tear Hypertension Melanoma Psoriasis Restless legs Scoliosis Home Medications calcium carbonate 600 mg-vitamin D3 10 mcg (400 unit) tablet 1 each PO DAILY 05/06/13 [History Last Taken Unknown] multivitamin 1 tablet PO DAILY 05/06/13 [History Last Taken Unknown] rosuvastatin 20 mg tablet (Crestor) 20 mg PO DAILY 05/06/13 [History Last Taken Unknown] biotin 5 mg capsule 5 mg PO DAILY 06/24/20 [History Last Taken Unknown] quinapril 40 mg tablet 40 mg PO DAILY BP 06/24/20 [History Last Taken 09/08/21 04:30] acetaminophen 500 mg tablet 1,000 mg PO TID #100 tabs 05/14/21 [Rx Last Taken Unknown] aspirin 81 mg tablet,delayed release 81 mg PO DAILY 09/03/21 [History Last Taken Unknown] fexofenadine 180 mg tablet (Radha Allergy) 180 mg PO DAILY 09/03/21 [History Last Taken Unknown] Allergy/AdvReac Type Severity Reaction Status Date / Time atorvastatin [From Lipitor] AdvReac Other Verified 09/08/21 05:47 Sulfa (Sulfonamide AdvReac Nausea Verified 09/08/21 05:47 Antibiotics) Family History (Updated 07/21/21 @ 15:37 by Edelmira Merrill) Mother History of colon resection Uncle Colon cancer Surgical History (Updated 07/21/21 @ 15:36 by Edelmira Merrill) H/O rotator cuff surgery H/O: hysterectomy History of carpal tunnel surgery Hx of colonoscopy Social History Smoking Status: Never smoker alcohol intake: never substance use type: does not use caffeine: No what type of physical activity do you participate in: walking seatbelt use: always do you feel safe at home: Yes additional social history: Akash- both retired ROS Constitutional Constitutional: Reports systems reviewed and no addt'l complaints, except as documented Cardiovascular Cardiovascular: Denies chest pain Respiratory/Chest Respiratory/Chest: Denies shortness of breath at rest Gastrointestinal Gastrointestinal: Denies abdominal pain, change in bowel habits, hematochezia or melena Vital Signs Vital Signs Vital Signs: 09/08/21 05:48 09/08/21 05:49 Temperature 97.4 F L Temperature Source Temporal Pulse Rate 84 Respiratory Rate 18 Respiratory Pattern Normal Blood Pressure 138/71 H Blood Pressure Mean 93 Blood Pressure Source Monitor Blood Pressure Position Semi-Fowlers Blood Pressure Location Left Arm Pulse Ox 100 Oxygen Delivery Method Room Air Weight Weight: 174 lb 12.8 oz Body Mass Index (BMI) 30.9 Physical Exam Const alert, oriented x3 and no apparent distress General Appearance: cooperative and comfortable Eyes General Eye: normal appearance of both eyes Neck General: normal visual inspection Chest inspection of chest normal Resp Effort and Inspection: able to speak in complete sentences and symmetric chest movement Auscultation: clear to auscultation bilaterally Cardio regular rate and regular rhythm GI soft to palpation, non-tender and non-distended Extremity no calf tenderness Neuro oriented x3 Psych thought process normal Assessment & Plan Assessment/Plan (1) Encounter for screening for malignant neoplasm of colon: PLAN: The patient presents via open access today for screening colonoscopy with possible biopsy or polypectomy as indicated. She is aware of the technique, benefit, risk, alternatives. She has had an opportunity to ask and have questions answered. We will proceed as noted. Tyrell Ku M.D., F.A.C.S.
[2021-09-08] MEDS: Midazolam 5 MG/ML Syringe (06:25)
--- NOTE | 2021-09-08 06:30 | COLBX_PTH ---
PATIENT: IAIN AZUL LOC: EN U#:[id number] AGE/SX: 76/F ROOM: RE09/08/[address]: Dr. Tyrell Ku MD : 1945 BED: DIS: 09/08/2021 SPEC #: [id number] RECD: 09/08/21 10:50 STATUS: BERNARD WILLIS #: [id number] GOYO: 09/08/21 06:[address]: Tyrell Ku DEPT: SURGICAL PATHOLOGY RECD BY: Iza Schmitz ENTERED: 09/08/21 13:10 SP TYPE: COLON BX OTHR DR: Dr. Dwayne Rodgers MD Tissues: Rectum, NOS Procedures: Surgery Specimen Level IV HEADER OPERATION: Colonoscopy ? open access (MOD), polypectomy biopsy PRE-OP DIAGNOSIS: Screening TISSUE SUBMITTED: Rectal polyps (x3) biopsy MICROSCOPIC DIAGNOSIS Rectal polyps, biopsy: Tubular adenoma. Focal acute colitis. See comment. SJ:shay 09/09/2021 COMMENT One of the fragments of colonic mucosa shows focal acute inflammation, minimal cryptitis and crypt abscesses. Correlation with clinical, endoscopic findings and appropriate follow up are necessary. MICROSCOPIC DESCRIPTION Slides are reviewed. GROSS DESCRIPTION Received in fixative is one container labeled with the patient's name and designated rectal polyp biopsy x3. The specimen consists of multiple irregular fragments of light dickens soft tissue that in aggregate measure 1.5 x 0.3 x 0.1 cm. The specimen is totally submitted in one cassette. / KEYON:shay 09/08/2021 TC:1 CPT: 36014
--- NOTE | 2021-09-08 06:58 | OP.COLON_ITS ---
Patient Name: Sandhya Finn Procedure Date: 09/08/2021 6:18 AM Date of : 1945 Age: 76 Procedure: Colonoscopy Indications: Screening for colorectal malignant neoplasm Providers: Tyrell Ku MD Referring MD: Dwayne Rodgers MD Medicines: Midazolam 2.5 mg IV, Meperidine 100 mg IV Patient Profile: Last Colonoscopy: 10 years ago. Complications: No immediate complications. Procedure: Pre-Anesthesia Assessment: - Prior to the procedure, a History and Physical was performed, and patient medications and allergies were reviewed. The patient's tolerance of previous anesthesia was also reviewed. The risks and benefits of the procedure and the sedation options and risks were discussed with the patient. All questions were answered, and informed consent was obtained. Prior Anticoagulants: The patient last took aspirin 1 day prior to the procedure. ASA Grade Assessment: II - A patient with mild systemic disease. After reviewing the risks and benefits, the patient was deemed in satisfactory condition to undergo the procedure. After I obtained informed consent, the scope was passed under direct vision. Throughout the procedure, the patient's blood pressure, pulse, and oxygen saturations were monitored continuously. The adult colonoscope was introduced through the anus and advanced to the cecum, identified by appendiceal orifice and ileocecal valve. The colonoscopy was performed without difficulty. The patient tolerated the procedure well. The quality of the bowel preparation was good. The ileocecal valve and the appendiceal orifice were photographed. Moderate Sedation: Moderate (conscious) sedation was personally administered by the endoscopist. The following parameters were monitored: oxygen saturation, heart rate, blood pressure, and response to care. Total physician intraservice time was 15 minutes. Scope In: 6:34:36 AM Scope Withdrawal Time 0 hours 13 minutes 11 seconds Scope Out: 6:53:22 AM Total Procedure Duration Time 0 hours 18 minutes 46 seconds Findings: Hemorrhoids were found on perianal exam. Three sessile polyps were found in the rectum. The polyps were 2 to 3 mm in size. These polyps were removed with a cold biopsy forceps. Resection and retrieval were complete. Multiple diverticula were found in the sigmoid colon and descending colon. The exam was otherwise without abnormality. Impression: - Hemorrhoids found on perianal exam. - Three 2 to 3 mm polyps in the rectum, removed with a cold biopsy forceps. Resected and retrieved. - Diverticulosis in the sigmoid colon and in the descending colon. - The examination was otherwise normal. Recommendation: - Discharge patient to home. - Resume previous diet. - Continue present medications. - Repeat colonoscopy in 5 years for surveillance based on pathology results. - Telephone my office for pathology results in 1 week. Procedure Code(s): --- Professional --- 80217, Colonoscopy, flexible; with biopsy, single or multiple 39180, 59, Moderate sedation services provided by the same physician or other qualified health rn care transition performing the diagnostic or therapeutic service that the sedation supports, requiring the presence of an independent trained observer to assist in the monitoring of the patient's level of consciousness and physiological status; initial 15 minutes of intraservice time, patient age 5 years or older Diagnosis Code(s): --- Professional --- Z12.11, Encounter for screening for malignant neoplasm of colon K64.9, Unspecified hemorrhoids K62.1, Rectal polyp K57.30, Diverticulosis of large intestine without perforation or abscess without bleeding CPT copyright 2017 [employer]. All rights reserved. The codes documented in this report are preliminary and upon materials and processes manager review may be revised to meet current compliance requirements. Tyrell Ku MD 09/08/2021 6:57:55 AM This report has been signed electronically. Number of Addenda: 0 Note Initiated On: 09/08/2021 6:18 AM
--- NOTE | 2021-09-08 06:59 | OP.CCLET_ITS ---
09/08/2021 Dwayne Rodgers MD Re : Colonoscopy procedure for Sandhya Finn Dear Dr. Rodgers This procedure was performed on Wednesday, September 08, 2021. My impressions and recommendations are as follows: Impressions : - Hemorrhoids found on perianal exam. - Three 2 to 3 mm polyps in the rectum, removed with a cold biopsy forceps. Resected and retrieved. - Diverticulosis in the sigmoid colon and in the descending colon. - The examination was otherwise normal. Recommendations : - Discharge patient to home. - Resume previous diet. - Continue present medications. - Repeat colonoscopy in 5 years for surveillance based on pathology results. - Telephone my office for pathology results in 1 week. My findings are described in the full procedure note, which is enclosed. If I can be of further assistance, please feel free to contact me at Doctor phone number(s): Work: . Sincerely, Tyrell Ku MD 09/08/2021 6:57:55 AM This report has been signed electronically.
== END 2021-09-08 08:23 | disposition home or self-care (01) ==
LOC: EN 05:18 → AC 05:20
PROVIDERS: PCP Family Medicine; Referring Provider Family Medicine; Visit Provider Surgery
PROC: 0DJD8ZZ Inspection of Lower Intestinal Tract, Via Natural or Artificial Opening Endoscopic (ICD-10-PCS; CPT 45378; principal; 2021-09-08 06:25)
DX: Z12.11 Encounter for screening for malignant neoplasm of colon (principal); K52.9 Noninfective gastroenteritis and colitis, unspecified; D12.8 Benign neoplasm of rectum; K57.30 Diverticulosis of large intestine without perforation or abscess without bleeding; I10 Essential (primary) hypertension; K64.9 Unspecified hemorrhoids; M41.9 Scoliosis, unspecified; M19.90 Unspecified osteoarthritis, unspecified site; Z79.899 Other long term (current) drug therapy; Z79.82 Long term (current) use of aspirin; Z80.0 Family history of malignant neoplasm of digestive organs
CPT/HCPCS: 45380; 88305; 99152; 99153; J7120

== ENCOUNTER 2022-07-30 08:00 | Outpatient (RCR) | payer MEDICARE, OTHER, SELFPAY ==
--- NOTE | 2022-06-01 12:20 | HP.PTEVAL_ITS ---
Patient's Visit Information IAIN AZUL is a 77 year old F referred to Physical Therapy by Dr. Angeliac Odom MD with a diagnosis of PROLAPSE AND OVER-ACTIVE BLADDER. Date of Evaluation: 06/01/22 Physical Therapist: Monica Oliveros PT, Cert MDT - Visit Plan Frequency: 1x/Week Duration: 8-12 WKS Plan: PELVIC FLOOR STRENGTHENING. URGE AND STRESS INCONTINENCE EDUCATION. HEALTHY BLADDER HABIT EDUCATION. TRAINING IN COORDINATION OF PELVIC FLOOR MUSCULATURE WITH HIP AND CORE (TRANSVERSE ABDOMINUS) MUSCULATURE. POSTURE CORRECTION/STRENGTHENING. CORE STRENGTHENING. SHERICE LE ROM, STRETCHING AND STRENGTHENING. TRAINING IN ABDOMINAL CAVITY PRESSURE MGMT WITH ADL'S. - Subjective Work/Leisure: RETIRED. Present symptoms: PROLAPSE BLADDER AND A SOME URINE LEAKAGE. DISCOMFORT IN VAGINAL AREA TOWARD END OF THE DAY. Present since: A YEAR OR MORE AGO - LEAKING - WEARING PANTY LINER. Pain Scale: DENIES ANY AMOUNT OF PAIN THAT CAN BE RATED ON A PAIN SCALE. Is it getting better, worse or staying the same: STAYING THE SAME. Commenced as a result of: NO APPARENT REASON. Symptoms at onset: DROPS OF URINE LEAKAGE THEN ABOUT 2 MONTHS AGO FELT AND SAW BULGING IN VAGINAL AREA. Worse: END OF DAY. Better: PUSH IT BACK IN. Disturbed sleep: GETTING UP ABOUT 2:30/3AM TO URINATE. Previous history/Previous treatment: UNREMARKABLE. Treatment this episode: TRIED A PESSARY WITH DR. REED ABOUT 2 MONTHS AGO - CAUSED BLEEDING - TOOK IT OUT - REFERRAL TO DR. ODOM. STATES DR. ODOM EXPLAINED SX AND THERAPY OPTIONS AND GAVE HER THE CHOICE. PATIENT REPORTS SHE WANTS TO TRY PT FIRST. MARIA L HUITRON PRESCRIBED ESTROGEN CREAM AFTER PESSARY WAS TAKEN OUT AND SHE IS CURRENTLY USING IT. Coughing/sneezing/straining: POSITIVE FOR URINE LEAKING. Gait: NORMAL. How long can you delay the need to urinate: UNABLE AT TIMES BUT USUALLY CAN DELAY 1-2 MINUTES. Prolapse (Falling out feeling): YES. Frequency of Urination: 5-6 TIMES A DAY DEPENDING ON HOW MUCH FLUID INTAKE. Ability to stop urine flow: NO. Ability to initiate urine stream: YES - NO DIFFICULTY. PATIENT ALSO REPORTS DR. ODOM TESTED HER ABILITY TO EMPTY HER BALDDER AND SHE CAN. Dyspareunia: N/A. Bowel Incontinence: NO. Accidents: NO. Unexplained weight loss: NO. Imaging: NONE RECENT. PMH/Recent major surgery: SHERICE REVERSE TSR'S. TOTAL HYSTERECTOMY, SCOLIOSIS, SCIATICA. 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 - Objective Sitting/Standing Posture: SCOLIOSIS. FH. RSH'S. Other Observations: INDEP GAIT AND TRANSFERS. Sensory deficit: SHERICE LE LIGHT TOUCH SENSATION GROSSLY INTACT AND SYMMETRICAL BUT PATIENT REPORTS INTERMITTENT L THIGH NUMBNESS FROM SCIATICA. ROM deficit: MILD SHERICE HS AND GASTROC TIGHTNESS. SHERICE HIP IR TIGHTNESS L > R. Motor deficit: SHERICE LE'S GROSSLY 5/5 WITH MMT'ING EXCEPT L HIP 4/5. Dural Signs: NEGATIVE SHERICE LE'S. Lumbar mvmt loss: flex - NIL. ext - MOD. R SG - MOD TO NIVIA. L SG - MOD. NO C/O PAIN WITH LUMBAR ROM TESTING. Core strength: FAIR. Palpation: NO LUMBAR OR PELVIC AREA TENDERNESS EXTERNALLY. PATIENT WILL CONSIDER CONSENT TO INTERNAL VAGINAL EXAM NEXT VISIT FOR PELVIC FLOOR STRENGTH TESTING. FUNCTIONAL SCREEN: Incontinence Impact Questionnaire Score: 1. Urogenital Distress Inventory Score: 5 - Goals Goal 1:: INCREASE PF STRENGTH Goal Time Frame: 8-12 Weeks Goal 2:: DECREASE URINARY LEAKAGE EPISODES TO ONE OR LESS PER DAY Goal Time Frame: 4-6 Weeks Goal 3:: PATIENT WILL SUCCESSFULLY DELAY VOIDING FOR 10 MINUTES WHEN URGENCY OCCURS Goal Time Frame: 6-8 Weeks Goal 4:: DEVELOP HEALTHY FLUID INTAKE HABITS WITH FLUID INTAKE OF ? BODY WEIGHT IN OUNCES PER DAY AND 2/3 BEING WATER. Goal Time Frame: 2-4 Weeks Goal 5:: NORMALIZE VOIDING FREQUENCEY TO EVERY 3-4 HOURS. Goal Time Frame: 4-6 Weeks Goal 6:: PATIENT WILL BE INDEP WITH A HEP/HOME INSTRUCTIONS FOR CONTINUED IMPROVEMENT ONCE FORMAL PHYSICAL THERAPY CONCLUDES. Goal Time Frame: 8-12 Weeks - Rehabilitation Potential Physical Therapy Diagnosis: PATIENT ALSO HAS SIGNS OF STRESS AND URGE INCONTINENCE - Anticipated Interventions Patient/Client Instruction: Educate patient on: Condition, Plan of Care, Risk Factors For the Purpose of:: To improve self management Therapeutic Exercise to Include: Strength training, Flexibilty training, Neuromotor development For the Purpose of:: To improve muscle performance and motor function, To improve ability of physical actions for home/community/work/leisure Thank you for the opportunity to evaluate your patient. For Medicare and Medicare HMO plans, please review the plan of care and approve it. It will need to be FAXED BACK to us at [phone] for Medicare purposes. For Medicare only, by signing this I certify the plan of care. Please let me know if there are questions or concerns regarding this plan of care. Physician Signature: _Date:
--- NOTE | 2022-07-30 08:23 | HP.PTDCSUM ---
It has been my pleasure to treat IAIN AZUL referred by Dr. Angelica Odom MD, with the diagnosis of PROLAPSE AND OVER-ACTIVE BLADDER for a total of 9 visit(s). Discharge Date: 07/30/22 Please see the following information for a summary of their discharge status. Subjective: PATIENT REPORTS SHE HAS BEEN SICK. STATES SHE WAS PLEASANTLY SURPRISED THAT SHE WASN'T LEAKING WITH COUGHING, SNEEZING AND BLOWING HER NOSE. 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 L POSTERIOR HIP Pain Intensity (Out of 10): 0 % Improvement: 95 Objective/Function: PATIENT WAS SEEN TODAY FOR RE-ASSESSMENT OF PROGRESS TOWARD THE SET PT GOALS AND THE NEED FOR FURTHER PHYSICAL THERAPY VS READINESS FOR DISCHARGE. PROGRESSED HEP WITH PF ELEVATOR EX TODAY. WRITTENT HEP INSTRUCTIONS PROVIDED. ALL GOALS HAVE BEEN MET AND PATIENT IS APPROPRIATE FOR D/C PATIENT AGREEABLE. FUNCTIONAL SCREEN: Incontinence Impact Questionnaire Score: 1. Urogenital Distress Inventory Score: 3 Goal 1:: INCREASE PF STRENGTH Goal Progress: Goal Met Goal 2:: DECREASE URINARY LEAKAGE EPISODES TO ONE OR LESS PER DAY Goal Progress: Goal Met Goal 3:: PATIENT WILL SUCCESSFULLY DELAY VOIDING FOR 10 MINUTES WHEN URGENCY OCCURS Goal Progress: Goal Met Goal 4:: DEVELOP HEALTHY FLUID INTAKE HABITS WITH FLUID INTAKE OF ? BODY WEIGHT IN OUNCES PER DAY AND 2/3 BEING WATER. Goal Progress: Goal Met Goal 5:: NORMALIZE VOIDING FREQUENCEY TO EVERY 3-4 HOURS. Goal Progress: Goal Met Goal 6:: PATIENT WILL BE INDEP WITH A HEP/HOME INSTRUCTIONS FOR CONTINUED IMPROVEMENT ONCE FORMAL PHYSICAL THERAPY CONCLUDES. Goal Progress: Goal Met Plan: D/C. PATIENT AGREEABLE. If there are questions or concerns regarding this patient's physical therapy, please feel free to call me at [phone]. Thank you for the referral of this patient. Sincerely, Mnoica Oliveros, PT, Cert MDT
== END 2022-07-30 19:00 | disposition home or self-care (01) ==
LOC: PT 08:00
PROVIDERS: PCP Family Medicine; Referring Provider Urology; Visit Provider Urology
DX: N32.81 Overactive bladder (principal)
CPT/HCPCS: 97162; 97164; 97530

== ENCOUNTER → 2022-08-02 | Outpatient (CLI) | payer MEDICARE, OTHER, SELFPAY ==
[2020-06-24 10:11] VITALS: BMI 31.6
--- NOTE | 2022-08-02 09:35 | BI_ITS ---
MAMMOGRAPHY - BILATERAL SCREENING REASON FOR EXAM: Female, 77 years old. Routine annual screening examination. PERTINENT HISTORY: Non-contributory. TECHNIQUE: Digital bilateral breast bhumi (3D mammographic acquisition) in the CC and MLO projections. 2-D mediolateral oblique (MLO) and craniocaudad (CC) views of both breasts were obtained. CAD: Full Field Digital Mammography with Computer Added Detection was performed. COMPARISON: Mammogram from 07/23/2021, 07/15/2020. FINDINGS: Breast Composition: There are scattered areas of fibroglandular density. There are no dominant masses or suspicious calcifications. No other significant abnormalities are identified. There has been no significant change since the prior study. BI/SCRN MAMM (CAD)W/BHUMI BILAT IMPRESSION: Stable bilateral screening mammogram. Yearly follow-up mammogram recommended. (A) ASSESSMENT CATEGORY: BIRADS Category 1: Negative. A letter regarding these results will be sent to the patient by the facility within 30 days. Approximately 10% of breast cancers are not detected by mammography. A normal mammogram should not delay biopsy of a clinically suspicious abnormality. Electronically Signed: Darwin Klein MD at 15:34 EDT ,
== END | disposition home or self-care (01) ==
LOC: OPBI 09:34
PROVIDERS: PCP Family Medicine; Referring Provider Obstetrics & Gynecology; Visit Provider Obstetrics & Gynecology
DX: Z12.31 Encounter for screening mammogram for malignant neoplasm of breast (principal)
CPT/HCPCS: 77063; 77067

== ENCOUNTER → 2022-08-18 | Outpatient (CLI) | payer MEDICARE, OTHER, SELFPAY ==
--- NOTE | 2022-08-18 10:37 | BD_ITS ---
STUDY: DUAL ENERGY X-RAY ABSORPTIOMETRY / DXA REASON FOR EXAM: Female, 77 years old. Vitamin D deficiency, Osteopenia TECHNIQUE: Bone Mineral Density (BMD) measurements of lumbar spine and bilateral hips were obtained. COMPARISON: Comparison is made with prior study July 15, 2020. FINDINGS: Lumbar Spine (L1-L4): g/cm2 (0.745) / T-score (-2.8) / Z-score (-0.4) Findings are suggestive of osteoporosis with a high fracture risk. Left Femur Total: g/cm2 (0.728) / T-score (-1.8) / Z-score (0.1) Left Femoral Neck: g/cm2 (0.670) / T-score (-1.6) / Z-score (0.5) Right Femur Total: g/cm2 (0.749) / T-score (-1.6) / Z-score (0.2) Right Femoral Neck: g/cm2 (0.696) / T-score (-1.4) / Z-score (0.7) The T-Scores on the most recent prior examination were: Lumbar Spine (L1-L4): There has been worsening of bone density since the previous examination. Left Femur Total: which represents an improvement of 1.1%. Right Femur Total: which represents an improvement of 2.6%. BD/Dexa Bone Density Study IMPRESSION: The patient is considered osteoporotic as outlined below according to World Chase Organization (WHO) criteria with a high fracture risk. There has been worsening of bone density since the previous examination. Reference Information: The T-score is the number of standard deviations above or below the standard which is normal for young adults at their peak bone mineral density. The World Health Organization (WHO) interprets the T-scores as follows: Above -1 Normal bone density Between -1 and -2.5 Osteopenia Equal to / or below -2.5 Osteoporosis As a practical clinical guideline, osteopenia may be graded as follows: Mild -1 through -1.5 Moderate -1.6 through -2.0 Severe -2.1 through -2.4 The Z-score is the number of standard deviations above or below age-matched controls. A Z-score of less than -1.5 would be considered abnormal. References: 1. NIH Osteoporosis and Related Bone Diseases www osteo.org 2. International Society for Clinical Densitometry www iscd.org 3. National Osteoporosis Foundation www nof.org Electronically Signed: Sherman Donovan MD at 10:44 EDT ,
== END | disposition home or self-care (01) ==
LOC: OPBD 10:24
PROVIDERS: PCP Family Medicine; Referring Provider Obstetrics & Gynecology; Visit Provider Obstetrics & Gynecology
DX: M81.0 Age-related osteoporosis without current pathological fracture (principal); E55.9 Vitamin D deficiency, unspecified
CPT/HCPCS: 77080

== ENCOUNTER → 2022-09-22 | Outpatient (CLI) | payer MEDICARE, OTHER, SELFPAY ==
[2022-09-22 17:53] LABS: Hematocrit 41.1 % (37-47); Hemoglobin 12.6 g/dL (12.0-15.0); Mean Corp Hgb Conc 30.7 g/dL (32-36); Mean Corpuscular Hgb 29.4 pg (27.0-32.0); Mean Platelet Vol. 9.9 fl (6.2-12.0); Platelet Count 266 K/mm3 (150-450); RBC Distribution Width CV 13.2 % (11.6-14.6); RBC Distribution Width SD 46.5 fl (35.1-43.9); Red Blood Count 4.28 M/mm3 (4.2-5.4); White Blood Count 6.3 K/mm3 (4.4-11.0)
[2022-09-22 18:32] LABS: Anion Gap 4 (5-15); BUN 15 mg/dL (7-18); BUN/Creat Ratio 18.4 RATIO (10-20); Calcium,Total 9.3 mg/dL (8.5-10.1); Chloride 108 mmol/L (98-107); Creatinine, Serum 0.82 mg/dL (0.55-1.02); EST Glomerular Filtration Rate 73 mL/min (>60); Est Glom Filt Rate - Afr Amer 88 mL/min (>60); Glucose 99 mg/dL (74-106); Potassium 4.1 mmol/L (3.5-5.1); Sodium Level 139 mmol/L (136-145)
== END | disposition home or self-care (01) ==
LOC: MTLAB 16:01
PROVIDERS: PCP Family Medicine; Referring Provider Urology; Visit Provider Urology
DX: Z01.818 Encounter for other preprocedural examination (principal); N99.3 Prolapse of vaginal vault after hysterectomy
CPT/HCPCS: 36415; 80048; 85027; 93005

== ENCOUNTER 2022-09-30 15:10 | Observation (INO) | payer MEDICARE, OTHER, SELFPAY ==
--- NOTE | 2022-09-22 09:02 | EKG12_ITS ---
Test Reason : PRE-OP Blood Pressure : / mmHG Vent. Rate : 082 BPM Atrial Rate : 082 BPM P-R Int : 158 ms QRS Dur : 072 ms QT Int : 366 ms P-R-T Axes : 029 -11 003 degrees QTc Int : 427 ms Normal sinus rhythm Voltage criteria for left ventricular hypertrophy Abnormal ECG Confirmed by DAQUAN GRAFF, IAN ([id number]), film and video editor SERAFIN GALLEGOS ([id number]) on 09/22/2022 10:59:47 AM Referred By: Angelica Odom Confirmed By:IAN BUTT MD
[2022-09-30] VITALS (15 sets, daily range): BP systolic 100–157; BP diastolic 60–91; PULSE 74–88; RESP 16–18; TEMP 36.1–36.7; O2SAT 94–100; BMI 31.0
[2022-09-30] MEDS: Lactated Ringers 1,000 ML 15 ML IV ×2 (07:02→08:45)
[2022-09-30] MEDS: Cefazolin 2 GM in 0.9% Normal Saline 100 ML IV (07:30)
[2022-09-30] MEDS: Lubricating Jelly 60 GM Tube 30 GM (07:49)
[2022-09-30] MEDS: Lidocaine 1% /Epi 1:100 (20ml) 20 ML Vial ×2 (07:49→08:17)
[2022-09-30] MEDS: Estrogens,Conj. 1 Tube 1 DOSE (08:56)
--- NOTE | 2022-09-30 09:19 | OP.PCM_ITS ---
Report of Operation Date of Procedure: 09/30/22 Pre-Operative Diagnosis: Cystocele, vaginal vault prolapse, stress urinary inco ntinence Post-Operative Diagnosis: Same Surgery/Procedure Performed:: Anterior repair with bilateral sacrospinous ligament fixation with dermis, sling insertion at the bladder neck, cystoscopy with bilateral ureteral catheterization Surgeon: Angelica Odom Type of Anesthesia: General Estimated Blood Loss (mL): 20 cc Description of Procedure: The patient is a 77-year-old female with pelvic organ prolapse who underwent evaluation in the office with cystoscopy and urodynamics. She now presents for surgical intervention. Informed consent was obtained. The patient has been using vaginal estrogen cream. The patient was taken to the operating room and placed on the operating room table. Anesthesia monitored the head, neck, airway, IV access and vital signs throughout the case. Once anesthesia was appropriately administered, the patient was placed into exaggerated dorsolithotomy and Trendelenburg position. Hammond catheter was placed under sterile conditions. The anterior vaginal wall was isolated and injected submucosally with 1% lidocaine with epinephrine for hydrostatic dissection and hemostatic control. A vertical midline incision was made approximately 2 cm in length. Sharp and blunt dissection was performed until the bladder neck was reached as well as the apex of the vagina, easily identified by the cuff scar. Bilaterally dissection continued until the ischial spines were palpable bilaterally. The sacrospinous ligaments were identified and cleared from surrounding tissues. Using a Capio device, an Ethibond suture was passed through the sacrospinous ligament through a piece of dermis that was trimmed to length and then out of the vaginal mucosa at the apex. The circumference of the trimmed dermis was sutured into position using interrupted 2-0 Vicryl. When there was no further area of weakness identified, the vaginal incision was closed using running interlocking 2-0 Vicryl. The Ethibond sutures were then tied into position and the prolapse was reduced. The Hammond balloon was deflated and the catheter was removed. The cystoscope was inserted through the urethra under direct visualization into the urinary bladder. The bladder mucosa as well as the urethra were found to be in normal limits without evidence of injury, no blood was identified or foreign body. Each ureteral orifice was gently cannulated with a whistle-tip catheter, 5 Austrian. The catheter easily advanced to 20 cm bilaterally without evidence of obstruction or injury. At this time the cystoscope and the whistle-tip catheter were removed and the Hammond catheter was replaced. The area of the urethra and closer to the bladder neck was isolated and injected submucosally with lidocaine with epinephrine. A vertical midline incision was made approximately 1.5 to 2 cm in length. Sharp and blunt dissection was performed on either side of the urethra with care being taken to avoid entrance into the urethra or the vaginal mucosa. Using the provided trocars, the Altis mid urethral sling was placed into position. It lay flat against the urethra without tension. The tensioning suture was then cut. The incision was closed using running interlocking 2-0 Vicryl. Once again the Hammond catheter was removed and a cystoscopy through the urethra was performed revealing no evidence of injury and good coaptation from the sling. At this time the cystoscope was removed and once again the Hammond catheter was reinserted and the balloon was inflated with 10 cc of sterile water. The vagina was then packed with estrogen cream and plain packing. The patient was awakened and taken to the recovery room in good condition. There were no complications during this procedure. Grafts/Implants Used: Dermis, Altis mid urethral sling Complications None Admit VTE Documentation VTE Present on Admission: Yes VTE Mechan Device Prophylaxis: SCD's VTE Pharm Prophylaxis ordered?: Yes
--- NOTE | 2022-09-30 09:26 | DCINST_ITS ---
Discharge Instructions Diet Discharge Diet: No restrictions Activity Discharge Activity: May Shower May resume sexual activity in: 8 weeks Lifting Restrictions: 5 pounds Additional Activity Instructions:: No strenuous activity or exercise, no swimming or tub bathing or hot tubs, no sexual activity, no vacuuming Dressing / Incision Call your doctor if your incision/area has: Continuous Slow Oozing, Sudden Increased Bleeding, Increased Pain/ Swelling and Foul Smelling Discharge Call your doctor if you observe: Fever of 101 or Higher, Inability to urinate and Inability to have a bowel movement Follow Up Care Please Follow Up With: Angelica Odom MD When: The office will call the patient to make arrangements Test Results: Test results from this visit will be discussed in further detail at your follow- up appointment, if applicable. Discharge Plan Admission Admit Date/Time: 09/30/22 15:10 Attending Provider: Angelica Odom Primary Care Provider: Dwayne Rodgers Discharge Orders/Prescriptions Prescriptions: New oxycodone-acetaminophen [Percocet] 5-325 mg tablet 1 tab PO Q8H PRN (Reason: pain) 6 Days Qty: 18 0RF cephalexin [cephalexin] 500 mg capsule 500 mg PO Q12 3 Days Qty: 6 0RF Continued biotin 5 mg capsule 5 mg PO DAILY loratadine [Claritin] 10 mg tablet 10 mg PO DAILY lisinopril 40 mg tablet 40 mg PO DAILY multivitamin 1 TABLET tablet 1 tablet PO DAILY rosuvastatin [Crestor] 20 MG tablet 20 mg PO DAILY calcium carbonate-vitamin D3 1 EACH tablet 1 each PO DAILY aspirin 81 mg tablet,delayed release (DR/EC) 81 mg PO DAILY Rx Instructions: Take 81 mg aspirin twice daily for 2 weeks postoperatively for DVT prophylaxis estradiol 0.01 % (0.1 mg/gram) cream See Rx Instructions .ROUTE .COMPLEX Qty: 42.5 2RF Dose Instruction: SMALL AMOUNT DIRECTED VAGINAL EVERY OTHER DAY X 4 WEEKS THEN TWICE A WEEK Rx Instructions: SMALL AMOUNT DIRECTED VAGINAL EVERY OTHER DAY X 4 WEEKS THEN TWICE A WEEK Referrals / Follow Up: Dwayne Rodgers MD [Primary Care Provider] - Disposition Disposition (needs filled in before D/C Order can be placed): Home, Self Care
[2022-09-30] MEDS: Lactated Ringers 1,000 ML 100 ML IV ×2 (13:26→21:09)
[2022-09-30] MEDS: Docusate Sodium 100 MG Capsule 200 MG PO ×2 (13:26→21:56)
[2022-09-30] MEDS: Loratadine 10 MG Tablet PO (13:27)
[2022-09-30] MEDS: Cephalexin 500 MG Capsule PO ×2 (13:27→21:55)
[2022-09-30] MEDS: Aspirin E.C. 81 MG Tablet PO (13:27)
[2022-09-30] MEDS: Ondansetron 4 MG/2 ML Vial IV (13:59)
[2022-09-30] MEDS: Famotidine 20 MG Tablet PO ×2 (16:27→21:56)
[2022-09-30] MEDS: Acetaminophen 325 MG Tablet 650 MG PO (21:09)
[2022-09-30] MEDS: proCHLORPERazine 10 MG/2 ML Vial IV (21:09)
[2022-10-01 03:11] VITALS: BP 141/76; PULSE 97; RESP 16; TEMP 36.8; O2SAT 100
[2022-10-01] MEDS: Enoxaparin 40 MG/0.4 ML Syringe SC (05:39)
[2022-10-01] MEDS: Lactated Ringers 1,000 ML 100 ML IV (05:39)
[2022-10-01 06:45] LABS: Hematocrit 37.7 % (37-47); Hemoglobin 11.9 g/dL (12.0-15.0); Mean Corp Hgb Conc 31.6 g/dL (32-36); Mean Corpuscular Hgb 29.7 pg (27.0-32.0); Mean Platelet Vol. 9.9 fl (6.2-12.0); Platelet Count 258 K/mm3 (150-450); RBC Distribution Width CV 13.1 % (11.6-14.6); RBC Distribution Width SD 44.9 fl (35.1-43.9); Red Blood Count 4.01 M/mm3 (4.2-5.4); White Blood Count 10.5 K/mm3 (4.4-11.0)
[2022-10-01 07:14] LABS: Anion Gap 7 (5-15); BUN 12 mg/dL (7-18); BUN/Creat Ratio 16.1 RATIO (10-20); Chloride 106 mmol/L (98-107); Creatinine, Serum 0.74 mg/dL (0.55-1.02); EST Glomerular Filtration Rate 81 mL/min (>60); Est Glom Filt Rate - Afr Amer 97 mL/min (>60); Estimated Creatinine Clearance 40.21 ml/min; Glucose 99 mg/dL (74-106); Potassium 3.7 mmol/L (3.5-5.1); Sodium Level 139 mmol/L (136-145)
[2022-10-01 07:40] VITALS: BP 104/57; PULSE 97; RESP 18; TEMP 36.8; O2SAT 98
[2022-10-01] MEDS: Acetaminophen 325 MG Tablet 650 MG PO (07:47)
[2022-10-01] MEDS: Loratadine 10 MG Tablet PO (07:47)
[2022-10-01] MEDS: Cephalexin 500 MG Capsule PO (07:47)
[2022-10-01] MEDS: Famotidine 20 MG Tablet PO (07:48)
[2022-10-01] MEDS: Docusate Sodium 100 MG Capsule 200 MG PO (07:48)
[2022-10-01] MEDS: Aspirin E.C. 81 MG Tablet PO (07:48)
[2022-10-01 08:44] VITALS: O2SAT 95
[2022-10-01 09:30] VITALS: BP 121/60
[2022-10-01] MEDS: Lisinopril 40 MG Tablet PO (09:38)
[2022-10-01 11:11] VITALS: BP 109/56; PULSE 99; RESP 18; TEMP 36.7; O2SAT 100
[2022-10-01 16:30] VITALS: BP 126/78; PULSE 88; RESP 18; TEMP 36.7; O2SAT 98
== END 2022-10-01 16:52 | disposition home or self-care (01) ==
LOC: SDC 15:18 → MS3 15:18
PROVIDERS: Admitting Provider Urology; PCP Family Medicine; Referring Provider Urology; Visit Provider Urology
PROC: (CPT 57260; principal; 2022-09-30 07:15)
DX: N81.11 Cystocele, midline (principal); N39.46 Mixed incontinence; Z79.899 Other long term (current) drug therapy; E78.00 Pure hypercholesterolemia, unspecified; Z79.82 Long term (current) use of aspirin; I10 Essential (primary) hypertension; M19.90 Unspecified osteoarthritis, unspecified site; N95.2 Postmenopausal atrophic vaginitis
CPT/HCPCS: 57288; 57282; 57240; 00942; 36415; 51702; 80048; 85027; 94668; 96361; 96365; 96367; 99221; J7120; C1758; G0378; J2405

== ENCOUNTER 2022-10-11 20:48 | Observation (INO) | payer MEDICARE, OTHER, SELFPAY ==
[2022-10-11 20:51] VITALS: BP 177/100; PULSE 106; RESP 18; TEMP 36.7; O2SAT 100; BMI 31.2
--- NOTE | 2022-10-11 21:18 | EX.ED.DYSGE1 ---
HPI History of Present Illness Chief Complaint: Allergic Reaction Detail of Chief Complaint: Swelling upper lip and face Informant: patient Onset/Context/Timing Onset: Hours (Onset 1500) Context: Sudden Onset Timing: Continuous Quality: Swelling of upper lip and face Location: Angioedema upper lip Current Severity: Moderate Maximum Severity: Moderate Worsened by: BRANDON inhibitor Relieved by: Nothing Associated Symptoms Associated Symptoms: No change in voice, no difficulty swallowing no swelling of tongue or throa Narrative Narrative: Patient is a 77-year-old woman who appears in no distress who presents because of swelling of her face and upper lip that started at 1500. She has been on lisinopril for the past year. She has no other complaints. Prior similar symptoms: No Recent Illness/Hospitalization: No PFSH PFS Medical History Arthritis Cancer Cystocele with prolapse Encounter for screening for malignant neoplasm of colon Heartburn High cholesterol History of edema History of hiatal hernia History of retinal tear Hypertension Melanoma Non-smoker Post-menopausal Psoriasis Restless legs Scoliosis Home Medications calcium carbonate 600 mg-vitamin D3 10 mcg (400 unit) tablet 1 each PO DAILY 05/06/13 [History Last Taken 09/29/22] multivitamin 1 tablet PO DAILY 05/06/13 [History Last Taken 09/29/22] rosuvastatin 20 mg tablet (Crestor) 20 mg PO DAILY 05/06/13 [History Last Taken 09/29/22] biotin 5 mg capsule 5 mg PO DAILY 06/24/20 [History Last Taken 09/29/22] aspirin 81 mg tablet,delayed release 81 mg PO DAILY 09/03/21 [History Last Taken 09/23/22] lisinopril 40 mg tablet 40 mg PO DAILY 05/03/22 [History Last Taken 09/30/22 06:31] loratadine 10 mg tablet (Claritin) 10 mg PO DAILY 08/02/22 [History Last Taken 09/29/22] estradiol 0.01% (0.1 mg/gram) vaginal cream See Rx Instructions .Route .COMPLEX #42.5 grams 09/24/22 [Rx Last Taken 09/29/22] Allergy/AdvReac Type Severity Reaction Status Date / Time lisinopril Allergy Severe Angioedema Verified 10/11/22 21:25 atorvastatin [From Lipitor] AdvReac Other Verified 10/11/22 20:50 Sulfa (Sulfonamide AdvReac Nausea Verified 10/11/22 20:50 Antibiotics) Family History Mother History of colon resection Uncle Colon cancer Surgical History H/O rotator cuff surgery H/O: hysterectomy History of carpal tunnel surgery Hx of colonoscopy Hx of total shoulder replacement Social History Smoking Status: Never smoker alcohol intake: never substance use type: does not use caffeine: No what type of physical activity do you participate in: walking seatbelt use: always do you feel safe at home: Yes additional social history: Akash- both retired ROS ROS ED Constitutional Constitutional ED: Denies chills, fever(s), subjective or sweats Eyes Eyes: Denies blurry vision, change in vision or diplopia ENT ENT ED: Reports other Details: Edema involving the face and upper lip ; Denies ear pain, rhinorrhea or sore throat Cardiovascular Cardiovascular: Denies chest pain or palpitations Respiratory/Chest Respiratory/Chest: Denies cough, dyspnea or dyspnea on exertion Gastrointestinal Gastrointestinal: Denies abdominal pain, nausea or vomiting Hematologic/Lymphatic Hematologic/Lymphatic: Reports systems reviewed and no addt'l complaints, except as documented Allergic/Immunologic Allergic/Immunologic ED: Reports other Details: Angioedema face and upper lip no involvement of lower lip, tongue, posterior pharynx or anterior neck. ; Denies mouth swelling, tongue swelling or urticaria EXAM Physical Exam Const Vital Signs: 10/11/22 20:51 10/11/22 21:25 10/11/22 22:14 Temperature 98.1 F Temperature Source Temporal Pulse Rate 106 H 88 88 Respiratory Rate 18 16 17 Blood Pressure 177/100 H 160/89 H 167/93 H Blood Pressure Mean 125 112 117 Pulse Ox 100 95 97 Oxygen Delivery Method Room Air Positive well nourished and well developed General Appearance ED: well developed and NAD; Negative for cyanotic, diaphoretic or pallor HEENT Reports moist mucous membranes HEENT Narrative: Angioedema of the upper lip and face with no involvement of the lower lip, tongue, soft palate, uvula or posterior pharynx. Eyes Negative for PERRL or EOMs intact bilaterally General Eye ED: Negative for pale conjunctiva or scleral icterus Neck no lymphadenopathy, supple and no JVD Neck Narrative: Trachea is midline. There is no Inspra or expiratory stridor. Resp normal respiratory effort and clear to auscultation bilaterally Cardio regular rate, regular rhythm, S1 normal heart sound, S2 normal heart sound and no murmurs GI normal to inspection, nondistended, normoactive bowel sounds, non-tender, non-distended, hepatosplenomegaly and no masses Back/Spine no CVA tenderness Extremity normal to inspection Neuro oriented x3, CN's II-XII intact bilaterally and no sensory deficits noted Sensorium / Orientation: alert Psych mental status grossly normal Skin no rashes or lesions noted, no wounds and skin turgor normal General Skin Exam: Negative for jaundice or pallor MDM MDM MDM Narrative Medical decision making narrative: Patient has been resting angioedema of the upper lip and face. IV was established and patient was made NPO. CBC was obtained to assess for eosinophilia. BMP to assess renal function since she will need a different antihypertensive med. Per position statement published 2 to 3 years ago from the [employer] there is no treatment. This is a bradykinin induced reaction. Treatment is observation and discontinuation of offending medication. Lab Data Attestation: I reviewed the patient's lab results. Lab results narrative: CBC is unremarkable with no eosin of brenda. Basic metabolic panel reveals an elevated BUN to creatinine ratio otherwise unremarkable. Since there is no eosinophilia patient was not treated with H1 and H2 mely or systemic steroids. Labs: Laboratory Results - last 24 hr 10/11/22 10/11/22 21:17 21:20 WBC 9.9 RBC 3.92 L Hgb 12.1 Hct 36.6 L MCV 93.4 MCH 30.9 MCHC 33.1 RDW Std Deviation 44.1 H RDW Coeff of Jerry 12.9 Plt Count 370 MPV 9.3 Immature Gran % (Auto) 0.400 Neut % (Auto) 59.4 Lymph % (Auto) 31.6 [place] % (Auto) 6.4 Eos % (Auto) 1.9 Baso % (Auto) 0.3 Absolute Neuts (auto) 5.9 Absolute Lymphs (auto) 3.13 Nucleated RBC % 0 Sodium 137 Potassium 4.1 Chloride 104 Carbon Dioxide 28.0 Anion Gap 5 BUN 17 Creatinine 0.65 Estim Creat Clear Calc 40.21 Est GFR (MDRD) Af Amer 113 Est GFR (MDRD) Non-Af 94 BUN/Creatinine Ratio 26.0 H Glucose 109 H Calcium 9.7 Discharge Plan Triage Chief Complaint: Allergic Reaction ED Provider: Jose Alfredo Gibbons Dx/Rx/DC Orders Clinical Impression: 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), History of chronic hypertension Prescriptions: No Action biotin 5 mg capsule 5 mg PO DAILY loratadine [Claritin] 10 mg tablet 10 mg PO DAILY lisinopril 40 mg tablet 40 mg PO DAILY Hold Instructions: allergic reaction multivitamin 1 TABLET tablet 1 tablet PO DAILY rosuvastatin [Crestor] 20 MG tablet 20 mg PO DAILY calcium carbonate-vitamin D3 1 EACH tablet 1 each PO DAILY aspirin 81 mg tablet,delayed release (DR/EC) 81 mg PO DAILY Rx Instructions: Take 81 mg aspirin twice daily for 2 weeks postoperatively for DVT prophylaxis estradiol 0.01 % (0.1 mg/gram) cream See Rx Instructions .ROUTE .COMPLEX Qty: 42.5 2RF Dose Instruction: SMALL AMOUNT DIRECTED VAGINAL EVERY OTHER DAY X 4 WEEKS THEN TWICE A WEEK Rx Instructions: SMALL AMOUNT DIRECTED VAGINAL EVERY OTHER DAY X 4 WEEKS THEN TWICE A WEEK Primary Care Provider: Dwayne Rodgers Referrals: Dwayne Rodgers MD [Primary Care Provider] - Disposition [facility]position: [facility]
[2022-10-11 21:25] VITALS: BP 160/89; PULSE 88; RESP 16; O2SAT 95
[2022-10-11 21:40] LABS: Absolute Lymphocyte Count 3.13 X10^3/uL (0.83-4.51); Absolute Neutrophil Count 5.9 X10^3/uL (2.0-7.7); Basophil# 0.03 X10^3/uL; Basophil% 0.3 % (0-1); Eosinophil# 0.19 X10^3/uL; Eosinophils% 1.9 % (0-5); Hematocrit 36.6 % (37-47); Hemoglobin 12.1 g/dL (12.0-15.0); Lymphocyte # 3.13 X10^3/ul (0.83-4.51); Lymphocyte % 31.6 % (19-41); Mean Corp Hgb Conc 33.1 g/dL (32-36); Mean Corpuscular Hgb 30.9 pg (27.0-32.0); Mean Corpuscular Volume 93.4 fL (81-99); Mean Platelet Vol. 9.3 fl (6.2-12.0); Monocyte# 0.63 X10^3/uL; Monocyte% 6.4 % (0-10); NRBC Flagged by Analyzer 0 % (0-5); Neutrophil % 59.4 % (47-70); Platelet Count 370 K/mm3 (150-450); RBC Distribution Width CV 12.9 % (11.6-14.6); RBC Distribution Width SD 44.1 fl (35.1-43.9); Red Blood Count 3.92 M/mm3 (4.2-5.4); White Blood Count 9.9 K/mm3 (4.4-11.0)
[2022-10-11 22:00] LABS: Anion Gap 5 (5-15); BUN 17 mg/dL (7-18); Calcium,Total 9.7 mg/dL (8.5-10.1); Chloride 104 mmol/L (98-107); Creatinine, Serum 0.65 mg/dL (0.55-1.02); EST Glomerular Filtration Rate 94 mL/min (>60); Est Glom Filt Rate - Afr Amer 113 mL/min (>60); Estimated Creatinine Clearance 40.21 ml/min; Glucose 109 mg/dL (74-106); Potassium 4.1 mmol/L (3.5-5.1); Sodium Level 137 mmol/L (136-145)
[2022-10-11 22:14] VITALS: BP 167/93; PULSE 88; RESP 17; O2SAT 97
--- NOTE | 2022-10-11 22:30 | PCM.HP.STD ---
HPI - General General Date of Admission: 10/11/22 Date of Service: 10/11/22 Chief Complaint: Upper lip swelling HPI Narrative IAIN AZUL, is a 77 F who presents to the emergency room from an urgent care with chief complaint of swelling of her upper lip. Onset of this began at 3:00 this afternoon. Patient has significant past medical history of taking lisinopril for the past year. She was diagnosed with angioedema at the urgent care and sent to the emergency room for acute management as this was progressing. Since her arrival in the emergency room she has had increased swelling of her upper lip to the corners of her lips bilaterally but no dyspnea shortness of breath and no involvement of her tongue at the present time. Her last dose of lisinopril was earlier this morning. Patient denies any chest pain, shortness of breath, fevers or chills at present time she will be admitted for observation to the progressive care unit and monitored closely for progression of her angioedema. [facility] Medical History Arthritis Cancer Cystocele with prolapse Encounter for screening for malignant neoplasm of colon Heartburn High cholesterol History of edema History of hiatal hernia History of retinal tear Hypertension Melanoma Non-smoker Post-menopausal Psoriasis Restless legs Scoliosis Home Medications calcium carbonate 600 mg-vitamin D3 10 mcg (400 unit) tablet 1 each PO DAILY 05/06/13 [History Last Taken 09/29/22] multivitamin 1 tablet PO DAILY 05/06/13 [History Last Taken 09/29/22] rosuvastatin 20 mg tablet (Crestor) 20 mg PO DAILY 05/06/13 [History Last Taken 09/29/22] biotin 5 mg capsule 5 mg PO DAILY 06/24/20 [History Last Taken 09/29/22] aspirin 81 mg tablet,delayed release 81 mg PO DAILY 09/03/21 [History Last Taken 09/23/22] lisinopril 40 mg tablet 40 mg PO DAILY 05/03/22 [History Last Taken 09/30/22 06:31] loratadine 10 mg tablet (Claritin) 10 mg PO DAILY 08/02/22 [History Last Taken 09/29/22] estradiol 0.01% (0.1 mg/gram) vaginal cream See Rx Instructions .Route .COMPLEX #42.5 grams 09/24/22 [Rx Last Taken 09/29/22] Allergy/AdvReac Type Severity Reaction Status Date / Time lisinopril Allergy Severe Angioedema Verified 10/11/22 21:25 atorvastatin [From Lipitor] AdvReac Other Verified 10/11/22 20:50 Sulfa (Sulfonamide AdvReac Nausea Verified 10/11/22 20:50 Antibiotics) Family History Mother History of colon resection Uncle Colon cancer Surgical History H/O rotator cuff surgery H/O: hysterectomy History of carpal tunnel surgery Hx of colonoscopy Hx of total shoulder replacement Social History Smoking Status: Never smoker alcohol intake: never substance use type: does not use caffeine: No what type of physical activity do you participate in: walking seatbelt use: always do you feel safe at home: Yes additional social history: Akash- both retired ROS Constitutional Constitutional: Denies chills or fever(s) Eyes Eyes: Denies blurry vision or change in vision ENT HEENT: Denies abnormal hearing, dysphagia, ear pain or throat swelling Cardiovascular Cardiovascular: Denies chest pain Respiratory/Chest Respiratory/Chest: Denies cough Gastrointestinal Gastrointestinal: Denies abdominal pain Genitourinary Genitourinary: Reports dysuria Musculoskeletal Musculoskeletal: Denies back pain Integumentary Integumentary: Denies dry skin Neurologic Neurologic: Denies abnormal gait Psychiatric Psychiatric: Reports anxiety Vital Signs Vital Signs Vital Signs: 10/11/22 20:51 10/11/22 21:25 10/11/22 22:14 Temperature 98.1 F Temperature Source Temporal Pulse Rate 106 H 88 88 Respiratory Rate 18 16 17 Blood Pressure 177/100 H 160/89 H 167/93 H Blood Pressure Mean 125 112 117 Pulse Ox 100 95 97 Oxygen Delivery Method Room Air Weight Weight: 176 lb 9.6 oz Body Mass Index (BMI) 31.2 Physical Exam Const oriented x3 General Appearance: cooperative and well developed HEENT HEENT Narrative: Marked swelling of upper lip to bilateral corners of the lip. No involvement of tongue or throat, lower lip or neck. Eyes PERRL Lymph Lymphatic: no lymphadenopathy noted Resp normal respiratory effort, normal air movement and clear to auscultation bilaterally Cardio regular rate, regular rhythm, S1 normal heart sound, S2 normal heart sound and no murmurs GI normal to inspection, nondistended, normoactive bowel sounds Extremity normal capillary refill Skin Wound Narrative: Upper lip swelling as above, no erythema currently nonpruritic Neuro no focal motor deficits and no sensory deficits noted Psych Appearance: appropriate Results Lab / Micro Data 10/11/22 21:20 10/11/22 21:17 Labs: Laboratory Results - last 24 hr 10/11/22 21:17: Sodium 137, Potassium 4.1, Chloride 104, Carbon Dioxide 28.0, Anion Gap 5, BUN 17, Creatinine 0.65, Estim Creat Clear Calc 40.21, Est GFR (MDRD) Af Amer 113, Est GFR (MDRD) Non-Af 94, BUN/Creatinine Ratio 26.0 H, Glucose 109 H, Calcium 9.7 10/11/22 21:20: WBC 9.9, RBC 3.92 L, Hgb 12.1, Hct 36.6 L, MCV 93.4, MCH 30.9, MCHC 33.1, RDW Std Deviation 44.1 H, RDW Coeff of Jerry 12.9, Plt Count 370, MPV 9.3, Immature Gran % (Auto) 0.400, Neut % (Auto) 59.4, Lymph % (Auto) 31.6, [place] % (Auto) 6.4, Eos % (Auto) 1.9, Baso % (Auto) 0.3, Absolute Neuts (auto) 5.9, Absolute Lymphs (auto) 3.13, Nucleated RBC % 0 Assessment & Plan Assessment/Plan (1) 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 Angioedema of upper lip?admit patient for observation to progressive care unit continue close supervision and monitoring to protect airway. Discontinue lisinopril for life. When swelling is diminished patient will be safe to be discharged 2. Hypertension?we will monitor for now anticipate starting amlodipine 5 mg daily and follow-up as an outpatient with her primary care physician 3. DVT prophylaxis no Lovenox at this time as patient is ambulatory.
[2022-10-11 22:40] VITALS: BP 167/93; PULSE 84; RESP 16; TEMP 36.4; O2SAT 97
[2022-10-11 23:14] VITALS: BMI 30.7
[2022-10-11 23:20] VITALS: BP 145/75; PULSE 87; RESP 18; TEMP 36.2; O2SAT 99
[2022-10-12 04:30] VITALS: BP 120/61; PULSE 80; RESP 16; TEMP 36.6; O2SAT 98
[2022-10-12 07:30] VITALS: O2SAT 96
--- NOTE | 2022-10-12 08:10 | PN.HOSP_ITS ---
Reason for Visit Reason for Visit: Diagnoses Adverse effect of vqprlyskngt-vqsapkixaj-owbvvl inhibitors, initial encounter ( 10/11/22) Angioneurotic edema, initial encounter (10/11/22) Personal history of other diseases of the circulatory system (10/11/22) Subjective Subjective Lip swelling improved. Never had this before. Objective Data Objective Data Vital Signs: Vital Signs Temp Pulse Resp BP Pulse Ox O2 Del Method 36.6 C 80 16 120/61 98 Room Air 10/12/22 04:30 10/12/22 04:30 10/12/22 04:30 10/12/22 04:30 10/12/22 04:30 10/12/22 04:30 Oxygen Delivery Method Room Air Weight: 78.7 kg Body Mass Index (BMI) 30.7 Intake & Output: Intake and Output for Last 24 Hours 10/10/22 10/11/22 10/12/22 23:59 23:59 23:59 Intake Total 0 / 0 120 / 120 Balance 0 / 0 120 / 120 Lab / Micro Data 10/11/22 21:20 10/11/22 21:17 Labs: Laboratory Results - last 24 hr 10/11/22 21:17: Sodium 137, Potassium 4.1, Chloride 104, Carbon Dioxide 28.0, Anion Gap 5, BUN 17, Creatinine 0.65, Estim Creat Clear Calc 40.21, Est GFR (MDRD) Af Amer 113, Est GFR (MDRD) Non-Af 94, BUN/Creatinine Ratio 26.0 H, Glucose 109 H, Calcium 9.7 10/11/22 21:20: WBC 9.9, RBC 3.92 L, Hgb 12.1, Hct 36.6 L, MCV 93.4, MCH 30.9, MCHC 33.1, RDW Std Deviation 44.1 H, RDW Coeff of Jerry 12.9, Plt Count 370, MPV 9.3, Immature Gran % (Auto) 0.400, Neut % (Auto) 59.4, Lymph % (Auto) 31.6, [place] % (Auto) 6.4, Eos % (Auto) 1.9, Baso % (Auto) 0.3, Absolute Neuts (auto) 5.9, Absolute Lymphs (auto) 3.13, Nucleated RBC % 0 Physical Exam Const alert and no apparent distress HEENT head/scalp atraumatic, moist oral mucous membranes and oropharynx normal HEENT Narrative: upper lip swelling. 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 No prior episodes, therefore, doubt hereditary angioedema. (2) History of chronic hypertension: PLAN: stable no lisinopril follow up with PCP to address if new medication would be needed as lisinopril has been discontinued. PLAN: Plan DVT prophylaxis no Lovenox at this time as patient is ambulatory.
[2022-10-12 08:36] VITALS: BP 107/66; PULSE 88; RESP 18; TEMP 36.4; O2SAT 94
[2022-10-12] MEDS: Loratadine 10 MG Tablet PO (08:48)
[2022-10-12] MEDS: Aspirin E.C. 81 MG Tablet PO (08:48)
--- NOTE | 2022-10-12 09:55 | DCINST_ITS ---
Discharge Instructions Diet Discharge Diet: No restrictions Follow Up Care Test Results: Test results from this visit will be discussed in further detail at your follow- up appointment, if applicable. Discharge Plan Admission Admit Date/Time: 10/11/22 22:37 Primary Reason for Your Visit: angioedema Attending Provider: Gaurav Osborne Primary Care Provider: Dwayne Rodgers Consulting Providers: Alli Ross Instructions Additional Instructions / Restrictions: You had angioedema due to lisinopril. Do not take lisinopril again. Lisinopril is of the class of BRANDON inhibitors (angiotensin converting enzyme inhibitors), do not take ANY medications from this class (i.e., ramipril, elapril, captopril, quinapril), additionally, do not take any ARBs (angiotensin II receptor blockers) such as losartan. Discharge Orders/Prescriptions Prescriptions: New prednisone 20 mg tablet 40 mg PO DAILY Qty: 8 0RF Rx Instructions: start 8/2 and continue to 4 days famotidine 40 mg tablet 40 mg PO DAILY Qty: 8 0RF Rx Instructions: start 8/2 and continue for 4 doses. Continued biotin 5 mg capsule 5 mg PO DAILY loratadine [Claritin] 10 mg tablet 10 mg PO DAILY multivitamin 1 TABLET tablet 1 tablet PO DAILY rosuvastatin [Crestor] 20 MG tablet 20 mg PO DAILY calcium carbonate-vitamin D3 1 EACH tablet 1 each PO DAILY aspirin 81 mg tablet,delayed release (DR/EC) 81 mg PO DAILY Rx Instructions: Take 81 mg aspirin twice daily for 2 weeks postoperatively for DVT prophylaxis estradiol 0.01 % (0.1 mg/gram) cream See Rx Instructions .ROUTE .COMPLEX Qty: 42.5 2RF Dose Instruction: SMALL AMOUNT DIRECTED VAGINAL EVERY OTHER DAY X 4 WEEKS THEN TWICE A WEEK Rx Instructions: SMALL AMOUNT DIRECTED VAGINAL EVERY OTHER DAY X 4 WEEKS THEN TWICE A WEEK Discontinued lisinopril 40 mg tablet 40 mg PO DAILY Hold Instructions: allergic reaction Referrals / Follow Up: Dwayne Rodgers MD [Primary Care Provider] - Within 1 Week Disposition Disposition (needs filled in before D/C Order can be placed): Home, Self Care
--- NOTE | 2022-10-12 10:03 | DS.PCM_ITS ---
Providers Date of Admission: 10/11/22 Primary Care Physician: Dr. Dwayne Rodgers MD Reason For Visit: ANGIOEDEMA Diagnosis Discharge Diagnosis (1) 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): Status: Acute Code(s): T78.3XXA - Angioneurotic edema, initial encounter; T46.4X5A - Adverse effect of frapxczuzae-nbamuijnge-iopugk inhibitors, initial encounter Plan: Improved w/o treatment no ACEi nor ARBs treat w 5 days of prednisone and famotidine advised pt to have diphenhydramine available if gets worse and to come back to ED. No prior episodes, therefore, doubt hereditary angioedema. (2) History of chronic hypertension: Status: Chronic Code(s): Z86.79 - Personal history of other diseases of the circulatory system Plan: stable no lisinopril follow up with PCP to address if new medication would be needed as lisinopril has been discontinued. Plan DVT prophylaxis no Lovenox at this time as patient is ambulatory. Medications at Discharge Home Medications calcium carbonate 600 mg-vitamin D3 10 mcg (400 unit) tablet 1 each PO DAILY 05/06/13 multivitamin 1 tablet PO DAILY 05/06/13 rosuvastatin 20 mg tablet (Crestor) 20 mg PO DAILY 05/06/13 biotin 5 mg capsule 5 mg PO DAILY 06/24/20 aspirin 81 mg tablet,delayed release 81 mg PO DAILY 09/03/21 loratadine 10 mg tablet (Claritin) 10 mg PO DAILY 08/02/22 estradiol 0.01% (0.1 mg/gram) vaginal cream See Rx Instructions .Route .COMPLEX #42.5 grams 09/24/22 famotidine 40 mg tablet 40 mg PO DAILY #8 tabs 10/12/22 prednisone 20 mg tablet 40 mg (2 x 20 mg) PO DAILY #8 tabs 10/12/22 Hospital Course Operations None Procedures None Summary of Care Provided Minutes Spent on Discharge: 31 Weight / BMI Weight Weight: 78.7 kg Body Mass Index (BMI) 30.7 ABG / Lab / Microbiology Data 10/11/22 21:20 10/11/22 21:17 Laboratory: Laboratory Results - last 24 hr 10/11/22 21:17: Sodium 137, Potassium 4.1, Chloride 104, Carbon Dioxide 28.0, Anion Gap 5, BUN 17, Creatinine 0.65, Estim Creat Clear Calc 40.21, Est GFR (MDRD) Af Amer 113, Est GFR (MDRD) Non-Af 94, BUN/Creatinine Ratio 26.0 H, Glucose 109 H, Calcium 9.7 10/11/22 21:20: WBC 9.9, RBC 3.92 L, Hgb 12.1, Hct 36.6 L, MCV 93.4, MCH 30.9, MCHC 33.1, RDW Std Deviation 44.1 H, RDW Coeff of Jerry 12.9, Plt Count 370, MPV 9.3, Immature Gran % (Auto) 0.400, Neut % (Auto) 59.4, Lymph % (Auto) 31.6, [place] % (Auto) 6.4, Eos % (Auto) 1.9, Baso % (Auto) 0.3, Absolute Neuts (auto) 5.9, A bsolute Lymphs (auto) 3.13, Nucleated RBC % 0 D/C Instructions Discharge Diet: No restrictions Meaningful Use Info Meaningful Use Diagnoses (Choose all that apply): None applicable Discharge Plan Admission Admit Date/Time: 10/11/22 22:37 Primary Reason for Your Visit: angioedema Attending Provider: Gaurav Osborne Primary Care Provider: Dwayne Rodgers Consulting Providers: Alli Ross Instructions Additional Instructions / Restrictions: You had angioedema due to lisinopril. Do not take lisinopril again. Lisinopril is of the class of BRANDON inhibitors (angiotensin converting enzyme inhibitors), do not take ANY medications from this class (i.e., ramipril, elapril, captopril, quinapril), additionally, do not take any ARBs (angiotensin II receptor blockers) such as losartan. Discharge Orders/Prescriptions Prescriptions: New prednisone 20 mg tablet 40 mg PO DAILY Qty: 8 0RF Rx Instructions: start 8/2 and continue to 4 days famotidine 40 mg tablet 40 mg PO DAILY Qty: 8 0RF Rx Instructions: start 8/2 and continue for 4 doses. Continued biotin 5 mg capsule 5 mg PO DAILY loratadine [Claritin] 10 mg tablet 10 mg PO DAILY multivitamin 1 TABLET tablet 1 tablet PO DAILY rosuvastatin [Crestor] 20 MG tablet 20 mg PO DAILY calcium carbonate-vitamin D3 1 EACH tablet 1 each PO DAILY aspirin 81 mg tablet,delayed release (DR/EC) 81 mg PO DAILY Rx Instructions: Take 81 mg aspirin twice daily for 2 weeks postoperatively for DVT prophylaxis estradiol 0.01 % (0.1 mg/gram) cream See Rx Instructions .ROUTE .COMPLEX Qty: 42.5 2RF Dose Instruction: SMALL AMOUNT DIRECTED VAGINAL EVERY OTHER DAY X 4 WEEKS THEN TWICE A WEEK Rx Instructions: SMALL AMOUNT DIRECTED VAGINAL EVERY OTHER DAY X 4 WEEKS THEN TWICE A WEEK Discontinued lisinopril 40 mg tablet 40 mg PO DAILY Hold Instructions: allergic reaction Referrals / Follow Up: Dwayne Rodgers MD [Primary Care Provider] - Within 1 Week Disposition Disposition (needs filled in before D/C Order can be placed): Home, Self Care Charges/Coding Visit Charges Inpatient E&M: 73840 Disch Hosp >30min
[2022-10-12] MEDS: predniSONE 20 MG Tablet 40 MG PO (10:43)
[2022-10-12] MEDS: Famotidine 20 MG Tablet 40 MG PO (10:43)
--- NOTE | 2022-10-12 12:19 | PHA.DC.MC.R ---
Pharmacy [facility] has performed discharge medication reconciliation and counseling for this patient. 1. FAMOTIDINE 40MG PO DAILY X 4 DAYS 2. PREDNISONE 40MG PO DAILY X 4 DAYS The patient's discharge medication list was reviewed for discrepancies and discrepancies were resolved. The patient was counseled on the following discharge medications and changes in medications for homegoing were reviewed. The Reason for Use, instructions for use, and potential side effects were reviewed for all new medications. The patient's questions regarding all of their medications were answered. The patient was able to verbally demonstrate an understanding of their discharge medications. Medications at Discharge Home Medications calcium carbonate 600 mg-vitamin D3 10 mcg (400 unit) tablet 1 each PO DAILY supplement 05/06/13 multivitamin 1 tablet PO DAILY vitamin 05/06/13 rosuvastatin 20 mg tablet (Crestor) 20 mg PO DAILY cholesterol 05/06/13 biotin 5 mg capsule 5 mg PO DAILY supplement 06/24/20 aspirin 81 mg tablet,delayed release 81 mg PO DAILY heart health 09/03/21 loratadine 10 mg tablet (Claritin) 10 mg PO DAILY allergies 08/02/22 estradiol 0.01% (0.1 mg/gram) vaginal cream See Rx Instructions .Route .COMPLEX hormone #42.5 grams 09/24/22 famotidine 40 mg tablet 40 mg PO DAILY #8 tabs 10/12/22 prednisone 20 mg tablet 40 mg (2 x 20 mg) PO DAILY #8 tabs 10/12/22
== END 2022-10-12 12:49 | disposition home or self-care (01) ==
LOC: ED 22:27 → PCU 22:41
PROVIDERS: Admitting Provider Family Medicine; Emergency Provider Emergency Medicine; PCP Family Medicine
DX: T78.3XXA Angioneurotic edema, initial encounter (principal); T46.4X5A Adverse effect of angiotensin-converting-enzyme inhibitors, initial encounter; I10 Essential (primary) hypertension; Z79.82 Long term (current) use of aspirin; E78.00 Pure hypercholesterolemia, unspecified; Z79.899 Other long term (current) drug therapy; M19.90 Unspecified osteoarthritis, unspecified site; L40.9 Psoriasis, unspecified
CPT/HCPCS: 80048; 85025; 99221; 99285; A4216; G0378

== ENCOUNTER 2023-02-14 08:43 | Outpatient (RCR) | payer SELFPAY | END 2023-03-13 23:59 | LOC: NS 08:43 | PROVIDERS: PCP Family Medicine | DX: Z71.3 Dietary counseling and surveillance (principal) ==

== ENCOUNTER 2023-04-15 21:01 | Emergency (ER) | payer MEDICARE, OTHER, SELFPAY ==
[2023-04-15 21:02] VITALS: BP 199/86; PULSE 71; RESP 16; TEMP 36.4; O2SAT 99; BMI 31.7
[2023-04-15 21:26] VITALS: BP 199/86; PULSE 70; RESP 24; O2SAT 97
--- NOTE | 2023-04-15 21:51 | EDS_ITS ---
HPI History of Present Illness Chief Complaint: Hypertension Informant: patient Narrative Narrative: Patient presents with elevated blood pressure. She states her blood pressure used to be well-controlled when she was on lisinopril. But she got angioedema. This was stopped over the summer. She was then placed on metoprolol succinate at 50 mg a day. This was then increased to 100 mg a day about a month ago. She states her blood pressure is normally in the 130s over 70s. Occasionally a little higher or lower. But it does not seem as well-controlled on the metoprolol as it was on the lisinopril. She states she checked it this evening and it was high. It is about 192 over 90s. She states she may have had a little headache with this but not now. No chest pain no trouble breathing. When I am in the room is 167/74. She did not miss a dose. The only thing we can think of is that she had food that she would normally had. She had Salsberry steak that was very salty. It is certainly possible that this could have contributed to this. [facility] Medical History (Updated 04/15/23 @ 22:[address] Héctor Campuzano MD) Arthritis Cancer Cystocele with prolapse Encounter for screening for malignant neoplasm of colon Heartburn High cholesterol History of edema History of hiatal hernia History of retinal tear Hypertension Melanoma Psoriasis Restless legs Scoliosis Home Medications calcium carbonate 600 mg-vitamin D3 10 mcg (400 unit) tablet 1 each PO DAILY supplement 05/06/13 [History Last Taken 09/29/22] multivitamin 1 tablet PO DAILY vitamin 05/06/13 [History Last Taken 09/29/22] rosuvastatin 20 mg tablet (Crestor) 20 mg PO DAILY cholesterol 05/06/13 [History Last Taken 09/29/22] biotin 5 mg capsule 5 mg PO DAILY supplement 06/24/20 [History Last Taken 09/29/22] aspirin 81 mg tablet,delayed release 81 mg PO DAILY heart health 09/03/21 [History Last Taken 09/23/22] loratadine 10 mg tablet (Claritin) 10 mg PO DAILY allergies 08/02/22 [History Last Taken 09/29/22] estradiol 0.01% (0.1 mg/gram) vaginal cream See Rx Instructions .Route .COMPLEX hormone #42.5 grams 09/24/22 [Rx Last Taken 09/29/22] clobetasol 0.05 % topical spray (Clobex) 1 applic topical DAILY PRN itchiness 04/15/23 [History Last Taken Unknown] cranberry 500 mg capsule 500 mg PO DAILY 04/15/23 [History Last Taken Unknown] Allergy/AdvReac Type Severity Reaction Status Date / Time lisinopril Allergy Severe Angioedema Verified 04/15/23 21:02 atorvastatin [From Lipitor] AdvReac Other Verified 04/15/23 21:02 Sulfa (Sulfonamide AdvReac Nausea Verified 04/15/23 21:02 Antibiotics) Family History Mother History of colon resection Uncle Colon cancer Surgical History H/O rotator cuff surgery H/O: hysterectomy History of carpal tunnel surgery Hx of colonoscopy Hx of total shoulder replacement Social History Smoking Status: Never smoker alcohol intake: never substance use type: does not use caffeine: No what type of physical activity do you participate in: walking seatbelt use: always do you feel safe at home: Yes additional social history: Akash- both retired ROS ROS ED ROS Narrative A complete review of systems was performed and is negative except as documented in the history of present illness. Some specific details below. Constitutional: No recent fevers or chills. No malaise. She does not feel ill. EYE: No visual change or visual field deficit. ENT: No GERD symptoms. CV: No palpitations chest pain lightheadedness presyncope or syncope. Respiratory: No coughing or dyspnea. GI: No abdominal pain. No nausea vomiting diarrhea. No blood in stool. : No frequency dysuria or hematuria. Musculoskeletal: No recent trauma. No pains. No swelling. Skin: No rash. Nondiaphoretic. Neuro: No weakness or numbness. She might of had a mild headache earlier but it is gone. Endocrine: No polyuria or polydipsia. EXAM Physical Exam Narrative Exam Narrative: CONSTITUTIONAL: Patient is nontoxic in appearance. The patient looks comfortable. Work of breathing looks normal. HEENT: No notable trauma. Mucous membranes moist. EYES: No conjunctival injection. Pupils are normal and reactive. No photophobia. NECK:No JVD. No stridor. CARDIOVASCULAR: Regular rate. Regular rhythm. No notable murmur. No JVD. No muffled tones. Pulses are normal RESPIRATORY: No respiratory distress. Breathing is unlabored. No wheezes. Saturations normal at 99% on room air showing no hypoxia. GASTROINTESTINAL: Not distended. Bowel sounds are normal. No tenderness. GENITOURINARY: No tenderness over the bladder. No CVA tenderness. MUSCULOSKELETAL: Atraumatic. No peripheral edema. NEUROLOGICAL: Patient is alert and appropriate. No focal deficit noted. SKIN: No noted rashes. No diaphoresis. PSYCHIATRIC: Patient is calm. Mood is appropriate. Const Vital Signs: 04/15/23 21:02 04/15/23 21:26 04/15/23 21:33 Temperature 97.6 F L Temperature Source Temporal Pulse Rate 71 70 Respiratory Rate 16 24 H Respiratory Effort Normal Non-Labored Respiratory Pattern Normal Blood Pressure 199/86 H 199/86 H Blood Pressure Mean 123 123 Pulse Ox 99 97 Oxygen Delivery Method Room Air Room Air 04/15/23 22:20 Temperature Temperature Source Pulse Rate Respiratory Rate Respiratory Effort Respiratory Pattern Blood Pressure 154/69 H Blood Pressure Mean 97 Pulse Ox Oxygen Delivery Method MDM MDM MDM Narrative Medical decision making narrative: Patient's metabolic panel shows no marked abnormalities. Minimal elevation of the glucose and BUN to creatinine ratio. But these are not the source of her symptoms. I just checked her blood pressure again she is 147/60 for now. She is wondering if maybe anxiety could cause this. I explained that that can contribute to it. But it may have also been salt in the diet. But with her current numbers coming back to normal without therapy we do not need to change her treatment. She has an appointment with her doctor in 6 days. She will bring in a record of twice a day blood pressure measurements to them so they can make adjustments if needed. Lab Data Attestation: I reviewed the patient's lab results. Labs: Laboratory Results - last 24 hr 04/15/23 21:35 Sodium 140 Potassium 3.9 Chloride 109 H Carbon Dioxide 28.0 Anion Gap 3 L BUN 21 H Creatinine 0.70 Estim Creat Clear Calc 60.40 Est GFR (MDRD) Af Amer 104 Est GFR (MDRD) Non-Af 86 BUN/Creatinine Ratio 29.8 H Glucose 110 H Calcium 9.8 Discharge Plan Triage Chief Complaint: Hypertension ED Provider: Héctor Campuzano Dx/Rx/DC Orders Clinical Impression: Elevated blood pressure reading Instructions: ED Hypertension, Established Prescriptions: No Action biotin 5 mg capsule 5 mg PO DAILY loratadine [Claritin] 10 mg tablet 10 mg PO DAILY multivitamin 1 TABLET tablet 1 tablet PO DAILY rosuvastatin [Crestor] 20 MG tablet 20 mg PO DAILY calcium carbonate-vitamin D3 1 EACH tablet 1 each PO DAILY aspirin 81 mg tablet,delayed release (DR/EC) 81 mg PO DAILY Rx Instructions: Take 81 mg aspirin twice daily for 2 weeks postoperatively for DVT prophylaxis cranberry 500 mg capsule 500 mg PO DAILY Rx Instructions: administer with a meal clobetasol [Clobex] 0.05 % spray,non-aerosol 1 applic topical DAILY PRN (Reason: itchiness) Rx Instructions: not to exceed 26 sprays per single application estradiol 0.01 % (0.1 mg/gram) cream See Rx Instructions .ROUTE .COMPLEX Qty: 42.5 2RF Dose Instruction: SMALL AMOUNT DIRECTED VAGINAL EVERY OTHER DAY X 4 WEEKS THEN TWICE A WEEK Rx Instructions: SMALL AMOUNT DIRECTED VAGINAL EVERY OTHER DAY X 4 WEEKS THEN TWICE A WEEK Primary Care Provider: Dwayne Rodgers Referrals: Dwayne Rodgers MD [Primary Care Provider] - [facility] appointment Disposition Disposition: Home, Self Care
--- OUTSIDE RECORDS SUMMARY | 2023-04-15 22:01 | XMS RPT_ITS | CCD ---
Author Name Unknown Address [address] [facility] [address] [address] [place] [address] Organization [facility] Care Team Providers Care 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 Name Role Phone Rodríguez Theodore MD Primary Care Provider RODRÍGUEZ THEODORE Primary Care Unavailable RODRÍGUEZ THEODORE Referring Unavailable RODRÍGUEZ THEODORE Primary Care Unavailable RODRÍGUEZ THEODORE Primary Care Unavailable RODRÍGUEZ THEODORE Primary Care Unavailable RODRÍGUEZ THEODORE Primary Care Unavailable RODRÍGUEZ THEODORE Attending Unavailable RODRÍGUEZ THEODORE Primary Care Unavailable RODRÍGUEZ THEODORE Referring Unavailable RODRÍGUEZ THEODORE Primary Care Unavailable KANDY HOLDER Attending Unavailable RODRÍGUEZ THEODORE Primary Care Unavailable RODRÍGUEZ THEODORE Primary Care Unavailable RODRÍGUEZ THEODORE Referring Unavailable RODRÍGUEZ THEODORE Primary Care Unavailable RODRÍGUEZ THEODORE Attending Unavailable RODRÍGUEZ THEODORE Primary Care Unavailable KANDY HOLDER Attending Unavailable RODRÍGUEZ THEODORE Primary Care Unavailable Allergies Allergy Classification Reported Allergen(s) Allergy Type Date of Onset Reaction(s) Facility (20 sources) atorvastatin; Translations: [ATORVASTATIN CALCIUM] Drug Allergy 7 Myalgia [facility] Work Phone: (20 sources) Pravastatin; Translations: [PRAVASTATIN SODIUM] Drug Allergy 8 Intolerance [facility] Work Phone: (20 sources) Sulfonamides (Antibiotic); Translations: [SULFA (SULFONAMIDE ANTIBIOTICS)] Drug Intolerance 5 GI Upset [facility] Work Phone: (6 sources) Lisinopril; Translations: [LISINOPRIL] Drug Allergy 3 Angioedema [facility] Medications Current Medications Medication Drug Class(es) Dates Sig (Normalized) Sig (Original) codeine phosphate 2 mg/ml / guaiFENesin 20 mg/ml oral solution (1 source) Opioid Agonist Start: 04-26-2022 End: 05-03-2022 take 5-10 mL by mouth every six hours as needed for cough and cough codeine-guaiFENesi n (ROBITUSSIN AC) 10-100 mg/5 mL syrup Indications: Cough Take 5-10 mL by mouth four times daily as needed for up to 7 days. May cause drowsiness. 200 mL 0 04/26/2022 05/03/2022 Active Completed/Discontinued Medications Medication Drug Class(es) Dates Sig (Normalized) Sig (Original) aspirin 81 mg delayed release oral tablet (20 sources) Platelet Aggregation Inhibitor, Nonsteroidal Anti-inflammatory Drug Start: 09-04-2009 aspirin(ECOTRIN LOW STRENGTH 81 MG TAB) Take one(1) tablet daily. 0 09/04/2009 Active Problems Active Problems Problem Classification Problem Date Documented Da te Episodic/Chronic Disorders of lipid metabolism (20 sources) Mixed hyperlipidemia; Translations: [Mixed hyperlipidemia] Onset: 04-01-2016 08-26-2020 Chronic Essential hypertension (20 sources) Benign essential hypertension; Translations: [Essential (primary) hypertension] Onset: 08-26-2020 08-26-2020 Chronic Genitourinary symptoms and ill-defined conditions (1 source) Microscopic hematuria; Translations: [Other microscopic hematuria] Episodic Melanomas of skin (20 sources) Malignant melanoma of skin; Translations: [Malignant melanoma of skin, unspecified] 08-26-2020 Chronic Menopausal disorders (20 sources) Atrophic vaginitis; Translations: [Postmenopausal atrophic vaginitis] Onset: 07-29-2010 08-26-2020 Chronic Osteoarthritis (20 sources) Arthritis of left knee; Translations: [Unilateral primary osteoarthritis, left knee] Onset: 10-16-2018 08-26-2020 Chronic Other and ill-defined heart disease (1 source) Left ventricular hypertrophy; Translations: [Cardiomegaly] 10-14-2022 Chronic Other and ill-defined heart disease (1 source) Cardiomegaly; Translations: [LVH (left ventricular hypertrophy)] Onset: 10-15-2022 Chronic Other and unspecified benign neoplasm (20 sources) Adenoma of left adrenal gland; Translations: [Benign neoplasm of left adrenal gland] Onset: 01-06-2022 Episodic Other endocrine disorders (11 sources) Adrenal mass; Translations: [Other specified disorders of adrenal gland] Onset: 02-26-2021 02-26-2021 Chronic Other hereditary and degenerative nervous system conditions (20 sources) Restless legs; Translations: [Restless legs syndrome] Onset: 04-22-2014 08-26-2020 Chronic Other inflammatory condition of skin (20 sources) Psoriasis; Translations: [Psoriasis, unspecified] Onset: 07-12-2011 08-26-2020 Chronic Other injuries and conditions due to external causes (1 source) Angioedema; Translations: [Angioneurotic edema, initial encounter] 10-14-2022 Episodic Other lower respiratory disease (20 sources) Multiple nodules of lung; Translations: [Other nonspecific abnormal finding of lung field] Onset: 01-10-2022 Episodic Other lower respiratory disease (1 source) Cough; Translations: [Cough] Episodic Other skin disorders (1 source) Lip swelling; Translations: [Localized swelling, mass and lump, head] 10-11-2022 Episodic Other upper respiratory disease (2 sources) Chronic rhinitis; Translations: [Unspecified sinusitis (chronic)] Chronic Other upper respiratory infections (1 source) Acute upper respiratory infection; Translations: [Acute upper respiratory infection, unspecified] Episodic Prolapse of female genital organs (20 sources) Midline cystocele; Translations: [Cystocele, midline] Onset: 07-29-2010 08-26-2020 Chronic Urinary tract infections (1 source) Acute urinary tract infection; Translations: [Urinary tract infection, site not specified] 01-10-2023 Episodic Past or Other Problems Problem Classification Problem Date Documented Date Episodic/Chronic Administrative/social admission (20 sources) Advance directive discussed with patient; Translations: [Other specified counseling] Onset: 2 Episodic Diabetes mellitus without complication (20 sources) Impaired fasting glycemia; Translations: [Impaired fasting glucose] Onset: 0 08-26-2020 Episodic Other aftercare (20 sources) Patient encounter status; Translations: [Other buttermilk drier operator (current) drug therapy] Onset: 1 08-26-2020 Episodic Other aftercare (1 source) Other buttermilk drier operator (current) drug therapy; Translations: [Medication management] Onset: 1 Episodic Other bone disease and musculoskeletal deformities (20 sources) Osteopenia; Translations: [Other specified disorders of bone density and structure, unspecified site] Onset: 1 08-26-2020 Episodic Other connective tissue disease (20 sources) Tendinitis of right rotator cuff; Translations: [Other shoulder lesions, right shoulder] Onset: 9 10-16-2018 Episodic Other lower respiratory disease (20 sources) Solitary nodule of lung; Translations: [Solitary pulmonary nodule] Onset: 0 01-05-2021 Episodic Other screening for suspected conditions (not mental disorders or infectious disease) (2 sources) Electrocardiogram abnormal; Translations: [Abnormal electrocardiogram [ECG] [EKG]] Onset: 3 10-14-2022 Episodic Other skin disorders (20 sources) Female pattern alopecia; Translations: [Other specified nonscarring hair loss] Onset: 5 08-26-2020 Episodic Residual codes; unclassified (20 sources) Family history of cancer of colon; Translations: [Family history of malignant neoplasm of digestive organs] Onset: 7 08-26-2020 Episodic Residual codes; unclassified (18 sources) Active living will ; Translations: [Other specified health status] Onset: 3 Episodic Results Test Name Value Interpretation Reference Range Facil it Vital Signs Date Time Vital Sign Value Performing Clinician Shane martines 01-10-2023 09:18-0400 Body temperature 97.81 [degF] Viri LEYVA-C Work Phone: [facility] 01-10-2023 09:18-0400 Body weight 81.19 kg Viri Pineda PA-C Work Phone: [facility] 01-10-2023 09:18-0400 Diastolic blood pressure 74 mm[Hg] Viri Pineda PA-C Work Phone: [facility] 01-10-2023 09:18-0400 Heart rate 98 /min Viri Pineda PA-C Work Phone: [facility] 01-10-2023 09:18-0400 Respiratory rate 16 /min Viri Pineda PA-C Work Phone: [facility] 01-10-2023 09:18-0400 SaO2% (BldA) [Mass fraction] 97 % Viri Pineda PA-C Work Phone: [facility] 01-10-2023 09:18-0400 Systolic blood pressure 122 mm[Hg] Viri Edwin PA-C Work Phone: [facility] 11-11-2022 10:27-0400 Body weight 79.38 kg Kandy Holder MANPOWER DEVELOPMENT SPECIALIST.HOUSE REPAIRER Work Phone: [facility] 11-11-2022 10:27-0400 Diastolic blood pressure 84 mm[Hg] Kandy Holder MANPOWER DEVELOPMENT SPECIALIST.HOUSE REPAIRER Work Phone: [facility] 11-11-2022 10:27-0400 Heart rate 72 /min Kandy Holder MANPOWER DEVELOPMENT SPECIALIST.HOUSE REPAIRER Work Phone: [facility] 11-11-2022 10:27-0400 Respiratory rate 14 /min Kandy Holder MANPOWER DEVELOPMENT SPECIALIST.HOUSE REPAIRER Work Phone: [facility] 11-11-2022 10:27-0400 Systolic blood pressure 142 mm[Hg] Kandy Holder MANPOWER DEVELOPMENT SPECIALIST.HOUSE REPAIRER Work Phone: [facility] 10-14-2022 14:40-0400 Diastolic blood pressure 84 mm[Hg] Rodríguez Theodore MD Work Phone: [facility] 10-14-2022 14:40-0400 Heart rate 83 /min Rodríguez Theodore MD Work Phone: [facility] 10-14-2022 14:40-0400 Systolic blood pressure 139 mm[Hg] Rodríguez Theodore MD Work Phone: [facility] 10-14-2022 14:16-0400 Body weight 79.83 kg Rodríguez Theodore MD Work Phone: [facility] 10-14-2022 14:16-0400 Respiratory rate 16 /min Rodríguez Theodore MD Work Phone: [facility] 10-11-2022 20:01-0400 Body temperature 98.49 [degF] Jeanna Castro MANPOWER DEVELOPMENT SPECIALIST.HOUSE REPAIRER Work Phone: [facility] 10-11-2022 20:01-0400 Body weight 80.2 kg Jeanna Castro MANPOWER DEVELOPMENT SPECIALIST.HOUSE REPAIRER Work Phone: [facility] 10-11-2022 20:01-0400 Diastolic blood pressure 90 mm[Hg] Jeanna Castro MANPOWER DEVELOPMENT SPECIALIST.HOUSE REPAIRER Work Phone: [facility] 10-11-2022 20:01-0400 Heart rate 102 /min Jeanna Castro MANPOWER DEVELOPMENT SPECIALIST.HOUSE REPAIRER Work Phone: [facility] 10-11-2022 20:01-0400 Respiratory rate 20 /min Jeanna Castro MANPOWER DEVELOPMENT SPECIALIST.HOUSE REPAIRER Work Phone: [facility] 10-11-2022 20:01-0400 SaO2% (BldA) [Mass fraction] 99 % Jeanna Castro MANPOWER DEVELOPMENT SPECIALIST.HOUSE REPAIRER Work Phone: [facility] 10-11-2022 20:01-0400 Systolic blood pressure 128 mm[Hg] Jeanna Castro MANPOWER DEVELOPMENT SPECIALIST.HOUSE REPAIRER Work Phone: [facility] 09-16-2022 08:53-0400 Body weight 79.83 kg Kandy Holder MANPOWER DEVELOPMENT SPECIALIST.HOUSE REPAIRER Work Phone: [facility] 09-16-2022 08:53-0400 Diastolic blood pressure 86 mm[Hg] Kandy Holder MANPOWER DEVELOPMENT SPECIALIST.HOUSE REPAIRER Work Phone: [facility] 09-16-2022 08:53-0400 Heart rate 74 /min Kandy Holder MANPOWER DEVELOPMENT SPECIALIST.HOUSE REPAIRER Work Phone: [facility] 09-16-2022 08:53-0400 Respiratory rate 14 /min Kandy Holder MANPOWER DEVELOPMENT SPECIALIST.HOUSE REPAIRER Work Phone: [facility] 09-16-2022 08:53-0400 Systolic blood pressure 134 mm[Hg] Kandy Holder MANPOWER DEVELOPMENT SPECIALIST.HOUSE REPAIRER Work Phone: [facility] 07-23-2022 07:52-0400 Body temperature 97.5 [degF] Kayla Powell APRN.HOUSE REPAIRER Work Phone: [facility] 07-23-2022 07:52-0400 Body weight 80.74 kg Kayla Powell APRN.HOUSE REPAIRER Work Phone: [facility] 07-23-2022 07:52-0400 Diastolic blood pressure 96 mm[Hg] Kayla Powell APRN.HOUSE REPAIRER Work Phone: [facility] 07-23-2022 07:52-0400 Heart rate 101 /min Kayla Powell APRN.HOUSE REPAIRER Work Phone: [facility] 07-23-2022 07:52-0400 Respiratory rate 20 /min Kayla Powell APRN.HOUSE REPAIRER Work Phone: [facility] 07-23-2022 07:52-0400 SaO2% (BldA) [Mass fraction] 97 % Kayla Powell APRN.HOUSE REPAIRER Work Phone: [facility] 07-23-2022 07:52-0400 Systolic blood pressure 138 mm[Hg] Kayla Powell APRN.HOUSE REPAIRER Work Phone: [facility] 05-15-2022 08:07-0500 Body temperature 99.3 [degF] Kayla Powell APRN.HOUSE REPAIRER Work Phone: [facility] 05-15-2022 08:07-0500 Body weight 80.29 kg Kayla Powell APRN.HOUSE REPAIRER Work Phone: [facility] 05-15-2022 08:07-0500 Diastolic blood pressure 96 mm[Hg] Kayla Powell APRN.HOUSE REPAIRER Work Phone: [facility] 05-15-2022 08:07-0500 Heart rate 114 /min Kayla Powell APRN.HOUSE REPAIRER Work Phone: [facility] 05-15-2022 08:07-0500 Respiratory rate 18 /min Kayla Powell APRN.HOUSE REPAIRER Work Phone: [facility] 05-15-2022 08:07-0500 SaO2% (BldA) [Mass fraction] 100 % Kayla Powell APRN.HOUSE REPAIRER Work Phone: [facility] 05-15-2022 08:07-0500 Systolic blood pressure 152 mm[Hg] Kayla Powell APRN.HOUSE REPAIRER Work Phone: [facility] 03-19-2022 09:53-0500 Diastolic blood pressure 77 mm[Hg] Rodríguez Theodore MD Work Phone: [facility] 03-19-2022 09:53-0500 Systolic blood pressure 132 mm[Hg] Rodríguez Theodore MD Work Phone: [facility] 03-19-2022 09:39-0500 Body weight 80.74 kg Rodríguez Theodore MD Work Phone: [facility] 03-19-2022 09:39-0500 Heart rate 68 /min Rodríguez Theodore MD Work Phone: [facility] 02-08-2022 08:12-0500 Body temperature 98.2 [degF] Kayla Powell APRN.HOUSE REPAIRER Work Phone: [facility] 02-08-2022 08:12-0500 Body weight 80.74 kg Kayla Powell APRN.HOUSE REPAIRER Work Phone: [facility] 02-08-2022 08:12-0500 Diastolic blood pressure 80 mm[Hg] Kayla Powell APRN.HOUSE REPAIRER Work Phone: [facility] 02-08-2022 08:12-0500 Heart rate 100 /min Kayla Powell APRN.HOUSE REPAIRER Work Phone: [facility] 02-08-2022 08:12-0500 Respiratory rate 16 /min Kayla Powell APRN.HOUSE REPAIRER Work Phone: [facility] 02-08-2022 08:12-0500 SaO2% (BldA) [Mass fraction] 96 % Kayla Powell APRN.HOUSE REPAIRER Work Phone: [facility] 02-08-2022 08:12-0500 Systolic blood pressure 136 mm[Hg] Kayla Powell APRN.HOUSE REPAIRER Work Phone: [facility] 09-16-2021 09:130400 Body height 160 cm Twyla LEYVA-C Work Phone: [facility] 09-16-2021 09:13-0400 Body temperature 98.1 [degF] Twyla LEYVA-C Work Phone: [facility] 09-16-2021 09:13-0400 Body weight 79.38 kg Twyla LEYVA-C Work Phone: [facility] 09-16-2021 09:13-0400 Diastolic blood pressure 82 mm[Hg] Twyla LEYVA-C Work Phone: [facility] 09-16-2021 09:13-0400 Heart rate 80 /min Twyla LEYVA-C Work Phone: [facility] 09-16-2021 09:13-0400 Respiratory rate 16 /min Twyla LEYVA-C Work Phone: [facility] 09-16-2021 09:13-0400 Systolic blood pressure 126 mm[Hg] Twyla LEYVA-C Work Phone: [facility] Encounters Encounter Date Encounter Type Care Provider Facility Start: 03-23-2023 End: 03-23-2023 [facility] RODRÍGUEZ THEODORE Facility:[facility] Start: 03-17-2023 End: 03-18-2023 [facility] RODRÍGUEZ THEODORE Facility:[facility] Start: 01-10-2023 End: 01-10-2023 [facility] Bashir GAMBLEEY Facility:[facility] Start: 01-10-2023 End: 01-10-2023 Patient encounter procedure Viri LEYVA-C Work Phone: [facility] Procedures Date Procedure Procedure Detail Performing Clinician Start: 01-10-2023 Urnls dip stick/tabl et rgnt auto w/o microscopy Viri Pineda PA-C Work Phone: Start: 09-10-2022 Lipid 1996 panel - S drake or Plasma Rodríguez Theodore MD Work Phone: Start: 01-06-2022 Ct thorax w/o contra st material Rodríguez Theodore MD Work Phone: Start: 01-06-2022 Ct abdomen w/o & w/contrast material Rodríguez Theodore MD Work Phone: Start: 09-08-2021 Colonoscopy Twyla Loren lubin PA-C Work Phone: Start: 07-23-2021 Mammography Dashawn keita MANPOWER DEVELOPMENT SPECIALIST.HOUSE REPAIRER, DNP Work Phone: Start: 04-30-2011 Colonoscopy Dashawn keita MANPOWER DEVELOPMENT SPECIALIST.HOUSE REPAIRER, DNP Work Phone: Plan of Treatment Date Care Activity Detail Author Start: 10-11-2027 Urine microalbumin profile [facility] Start: 09-11-2027 Lipid 1996 panel - Serum or Plasma Lipid Screening [facility] Start: 09-11-2027 LIPID SCREEN LIPID SCREEN [facility] Start: 03-11-2027 LIPID SCREEN LIPID SCREEN [facility] Start: 09-08-2026 Colonoscopy COLONOSCOPY [facility] Start: 09-08-2026 COLORECTAL CANCER SCREENING COLORECTAL CANCER SCREENING [facility] Start: 09-04-2026 LIPID SCREEN LIPID SCREEN [facility] Start: 02-19-2026 LIPID SCREEN LIPID SCREEN [facility] Start: 09-10-2025 DIABETES SCREEN DIABETES SCREEN [facility] Start: 09-10-2025 Diabetes Screening Diabetes Screening [facility] Start: 03-11-2025 DIABETES SCREEN DIABETES SCREEN [facility] Start: 09-04-2024 DIABETES SCREEN DIABETES SCREEN [facility] Start: 04-20-2024 DIABETES SCREEN DIABETES SCREEN [facility] Start: 01-11-2024 BP Controlled (<130/80) BP Controlled (<130/80) [facility] Start: 11-12-2023 ANNUAL PCP TEAM CHRONIC DISEASE VISIT ANNUAL PCP TEAM CHRONIC DISEASE VISIT [facility] Start: 10-15-2023 ANNUAL PCP TEAM CHRONIC DISEASE VISIT ANNUAL PCP TEAM CHRONIC DISEASE VISIT [facility] Start: 09-17-2023 ANNUAL PCP TEAM CHRONIC DISEASE VISIT ANNUAL PCP TEAM CHRONIC DISEASE VISIT [facility] Start: 04-17-2023 Covid-19 Vaccine (6 - Moderna series) Covid-19 Vaccine (6 - Moderna series) [facility] Start: 03-19-2023 ANNUAL PCP TEAM CHRONIC DISEASE VISIT ANNUAL PCP TEAM CHRONIC DISEASE VISIT [facility] Start: 03-19-2023 BP CONTROLLED (<130/80) BP CONTROLLED (<130/80) [facility] Start: 03-11-2023 End: 05-11-2023 Hemoglobin A1c in Blood HGB A1C Lab Routine Impaired fasting glucose Expected: 03/11/2023, Expires: 05/11/2023 [facility] Work Phone: Immunizations Immunization Date Immunization Notes Care Provider Fa cili 12-15-2022 COVID-19 vaccine, unknown product (NON-US) Rodríguez Theodore MD Work Phone: [facility] 12-07-2022 influenza (HD-IIV4) vaccine, age 65+ yr, high dose, quadrivalent, PF (FLUZONE HIGH-DOSE) Rodríguez Theodore MD Work Phone: [facility] 12-14-2021 COVID-19 booster vaccine, age 18+ yr, bivalent (MODERNA) Rodríguez Theodore MD Work Phone: [facility] 12-05-2021 influenza, high dose seasonal, preservative-free Rodríguez Theodore MD Work Phone: [facility] 07-08-2021 COVID-19 vaccine, booster dose (MODERNA) Dashawn Segura APRN.LAURA MYERS Work Phone: [facility] 01-07-2021 COVID-19 vaccine, fu ll dose (MODERNA) Dashawn Segura APRN.LUCIA DNP Work Phone: [facility] 12-03-2020 influenza, high dose seasonal, preservative-free Dashawn Segura APRN.CNP DNP Work Phone: [facility] 08-26-2020 pneumococcal polysaccharide vaccine, 23 valent Dashawn Segura APRN.LUCIA DNP Work Phone: [facility] 05-28-2020 COVID-19 vaccine, fu ll dose (MODERNA) Dashawn Segura APRN.LAURA MYERS Work Phone: [facility] 05-01-2020 COVID-19 vaccine, fu ll dose (MODERNA) Dashawn Segura APRN.LUCIA [facility] Work Phone: [facility] 09-18-2018 zoster vaccine recombinant Dashawn Segura APRN.[facility] Work Phone: [facility] Work Phone: 07-13-2018 zoster vaccine recombinant Dashawn Segura APRN.[facility] Work Phone: [facility] Work Phone: 10-10-2017 tetanus and diphther ia toxoids, adsorbed, preservative free, for adult use (5 Lf of tetanus toxoid and 2 Lf of diphtheria toxoid) Dashawn Segura APRN.[facility] Work Phone: [facility] 12-16-2016 influenza, high dose seasonal, preservative-free Dashawn Segura APRN.[facility] Work Phone: [facility] 12-11-2014 influenza, high dose seasonal, preservative-free Dashawn Segura APRN.[facility] Work Phone: [facility] 07-25-2014 pneumococcal conjuga te vaccine, 13 valent Dashawn Segura APRN.[facility] Work Phone: [facility] 07-27-2012 pneumococcal polysaccharide vaccine, 23 valent Dashawn Segura APRN.[facility] Work Phone: [facility] 12-23-2010 zoster vaccine, live Dashawn Segura APRN.[facility] Work Phone: [facility] 12-18-2009 influenza virus vacc ine, unspecified formulation Dashawn Segura APRN.[facility] Work Phone: [facility] Work Phone: 08-21-2007 tetanus toxoid, redu orion diphtheria toxoid, and acellular pertussis vaccine, adsorbed Dashawn Segura APRN.LUCIA [facility] Work Phone: [facility] Work Phone: 2006 influenza virus vacc ine, unspecified formulation Dashawn Segura APRN.[facility] Work Phone: [facility] Work Phone: 01-09-2005 influenza virus vacc ine, whole virus Dashawn Segura APRN.[facility] Work Phone: [facility] 08-18-1984 diphtheria and tetan us toxoids, adsorbed for pediatric use Dashawn Segura APRN.[facility] Work Phone: [facility] Work Phone: 08-20-1964 diphtheria and tetan us toxoids, adsorbed for pediatric use Dashawn Segura APRN.[facility] Work Phone: [facility] Work Phone: 02-25-1960 diphtheria and tetan us toxoids, adsorbed for pediatric use Dashawn Segura APRN.[facility] Work Phone: [facility] Work Phone: 06-10-1950 DTP-Haemophilus influenzae type b conjugate vaccine Dashawn Segura APRN.[facility] Work Phone: [facility] Work Phone: Payers Date Payer Category Payer Medicare [id number] 2016 Private Health Insurance AETNA A ETNA MEDICARE SUPPLEMENT [id number] 2016-Present [phone] [address] [address] [place] [address] Indemnity [id number] 2016 Private Health Insurance AETNA A ETNA MEDICARE SUPPLEMENT [id number] 2016-Present [phone] [address] [address] [place] [address] Indemnity [id number] 2014 Medicare MEDICARE MEDICAR E A AND B [id number] 2014-Present [phone] [address] [address] [place] [address] Medicare [id number] 2014 Medicare MEDICARE MEDICAR E A AND B [id number] 2014-Present [phone] [place] [address] Medicare [id number] 2014 Medicare [id number] Social History Date Type Detail Facility Start: 07-12-2011 Tobacco smoking status NHIS Never sm oked tobacco [facility] Start: 04-28-2021 End: 01-06-2022 Alcohol intake Current drinker of alcohol (finding) [facility] Start: 05-22-2019 End: 03-14-2022 History SDOH Alcohol Frequency 1 [facility] Start: 05-22-2019 End: 03-14-2022 History SDOH Alcohol Std Drinks 98 [facility] Start: 08-03-2011 History SDOH Alcohol Comment 3 glasses of wine a year [facility] Start: 05-22-2019 End: 03-14-2022 History SDOH Social Connections Phone 5 [facility] Start: 2020 End: 03-14-2022 History SDOH Social Connections Meetings 3 [facility] Start: 05-22-2019 End: 03-14-2022 History SDOH Physical Activity DPW 4 [facility] Start: 2020 End: 03-14-2022 History SDOH Stress 2 [facility] Start: 05-22-2019 Education 17 [facility] Start: 1945 Sex Assigned At Not on file [facility] Start: 09-06-2021 End: 02-08-2022 Exposure to SARS-CoV-2 (event) Not sure [facility] Start: 07-12-2011 Tobacco use and exposure Smoke less tobacco non-user [facility] Start: 03-14-2022 History SDOH Alcohol Std Drinks 0 [facility] Start: 03-14-2022 History SDOH Physica l Activity MPS 6 [facility] Start: 09-16-2021 End: 03-14-2022 History of Social function [facility] Start: 09-16-2021 End: 03-14-2022 Social connection and isolation panel [facility] Frequency of Communi cation with Friends and Family Not on file [facility] Do you belong to any clubs or organizations such as jainism groups, unions, [email or web address] or athletic groups, or school groups? No [facility] Are you now , , , , never or living with a partner? [facility] How often to you hav e a drink containing alcohol? Never [facility] Do you feel stress - tense, restless, nervous, or anxious, or unable to sleep at night because your mind is troubled all the time - these days [OSQ] Not at all [facility] (I/We) worried wheminerva er (my/our) food would run out before (I/we) got money to buy more. Never true [facility] Do you belong to any clubs or organizations such as jainism groups, unions, [employer] or athletic groups, or school groups? Yes [facility] Do you feel stress - tense, restless, nervous, or anxious, or unable to sleep at night because your mind is troubled all the time - these days [OSQ] Only a little [facility] Clinical Notes 02-22-2017 to 03-23-2023 Viri Pineda PA-C - 01/10/2023 10:07 AM Kandy Chavira APRN.HOUSE REPAIRER - 11/11/2022 10:28 AM EDTTelephone Encounter - Hue Gee LPN - 10/16/2022 10:53 AM EDTPatient Instructions Note Date & Type Note Facility 03-23-2023 Note HNO ID: [id number] Author: RODRÍGUEZ THEODORE MD Service: ? Author Type: Physician Type: Progress Notes Filed: 03/24/2023 14:51 Note Text: Chief Complaint Patient presents with: F/U 6 months HPI Sandhya Finn is a 78 year old female who presents here today for 6 month follow up. Patient with hx of HTN, HLP, elevated glucose, RLS, adrenal nodule, Lung nodul, Psoriasis, hx of melanoma, and those as below. Patient did surgery for prolapse bladder; did have some recurrent UTI was told to cranberry tablet with Vitamin C, no current UTI. Patient also had bone density test completed brought in results. Patient also had questions ECHO Any new concerns today? BP is still running high; Any recent ER/hospital visits None Past medical history, appointments, medications, allergies reviewed. 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 Pain in joint RIGHT HIP Papanicolaou smear of cervix with atypical squamous cells of undetermined significance (ASC-US) 1992; 1993 Psoriasis 07/12/2011 Restless legs syndrome (RLS) 04/22/2014 Seborrheic dermatitis of scalp 05/26/2010 Symptomatic menopausal or female climacteric states Previous Surgical History PAST SURGICAL HISTORY Procedure Laterality Date CAUTERY CERVIX CRYOCAUTERY INITIAL/REPEAT 1993 [place] since [place]; RICHARD/BSO 1994 COLONOSCOPY FLX DX W/COLLJ SPEC WHEN PFRMD 04/27/2001 Colonoscopy-repeat in -2011 COLONOSCOPY FLX DX W/COLLJ SPEC WHEN PFRMD 04/30/2011 EXCISION PILONIDAL CYST/SINUS SIMPLE Excision pilonidal cyst LIG/TRNSXJ FLP TUBE ABDL/VAG APPR UNI/BI Tubal ligation LUMBAR OR CAUDAL EPIDURAL STEROID INJECTION 02/23/2017 PAST SURGICAL HISTORY OF 05/26/2012 rotor cuff surgery (R) Dr Beaulieu PAST SURGICAL HISTORY OF Right 02/19/2020 reverse right shoulder replacement. PAST SURGICAL HISTORY OF 09/30/2022 cyctocele repair and bladder sling for incontinece, Dr. Odom REM LESION TRUNK,ARM, LEG <0.5 CM 03/01/2012 Exc. left lateral malleous skin lesion REM LESION TRUNK,ARM,LEG 0.6 -1.0CM 07/26/2007 Exc. right medial thigh skin lesion ROTATOR CUFF REPAIR 10/15/2015 SALPINGO-OOPHORECTOMY COMPL/PRTL UNI/BI SPX Salpingo-oophorectomy Bilateral SHX TOTAL SHOULDER REVERSE 05/13/2021 TOTAL ABDOMINAL HYSTERECT W/WO RMVL TUBE OVARY 1994 Hysterectomy, RICHARD Fibroids and bleeding Family History FAMILY HISTORY Problem Relation Age of Onset Hypertension Mother pulmonary embolus Kidney Disease Mother other (Heart problem) Mother CA 10/11/2012 Hypertension Father Diabetes Sister Diabetes Paternal Grandmother Colon Cancer Maternal Aunt Breast Cancer Paternal Aunt Diabetes Paternal Aunt Diabetes Paternal Uncle Patient Allergies ALLERGIES Allergen Reactions Lisinopril Angioedema Lipitor [Atorvastat* Myalgia Pravachol [Pravasta* Intolerance muscle ache Sulfa (Sulfonamide * GI Upset Current Medications Current Outpatient Medications on File Prior to Visit Medication Sig rosuvastatin (CRESTOR) 20 mg tablet Take 1 tablet by mouth once daily. metoprolol succinate ER (TOPROL XL) 50 mg 24 hr tablet Take 1 tablet by mouth once daily. cholecalciferol, vitamin D3, (VITAMIN D3 ORAL) Take by mouth. Biotin 2,500 mcg cap Take 5,000 mcg by mouth once daily. fexofenadine (DARIO) 180 mg ORAL tablet Take 1 tablet by mouth once daily. Clobetasol (CLOBEX) 0.05 % TOPICAL Cameron Apply 1 application to affected area once daily as needed. aspirin(ECOTRIN LOW STRENGTH 81 MG TAB) Take one(1) tablet daily. MULTI-VITAMIN TAB Take one(1) tablet daily. CALCIUM + D 600 MG-200 UNIT TAB Take one(1) tablet daily. Current Facility-Administered Medications on File Prior to Visit Medication perflutren lipid microspheres 1.3 mL in NaCl (PF) 0.9% 10 mL injection (DEFINITY) sodium chloride 0.9 % (flush) 10 mL (BD POSIFLUSH) Social History Social History Tobacco Use Smoking status: Never Smokeless tobacco: Never Vaping Use Vaping Use: Never used Substance Use Topics Alcohol use: Yes Comment: rarely, maybe 3 glasses of wine a year Drug use: No Review of Symptoms REVIEW OF SYSTEMS GENERAL: No weight loss, malaise or fevers NECK: Negative for lumps, goiter, pain and significant neck swelling RESPIRATORY: Negative for cough, hemoptysis, wheezing, COPD, dyspnea (more content not included)... [facility] 01-10-2023 Note HNO ID: [id number] Author: Viri Pineda PA-C Service: ? Author Type: Physician Cardio Clinician Type: Progress Notes Filed: 01/10/2023 10:14 AM Note Text: This note was created using [employer]. Subjective Sandhya Finn is a 77 year old female. HPI Presents with urinary frequency, dysuria and urgency over the past 3 days. She has had cloudy urine as well. No back pain or abdominal pain. No blood in urine. Denies fever or vomiting. Denies recurrent UTIs. No vaginal symptoms. Review of Systems Constitutional: Negative. HENT: Negative. Respiratory: Negative. Cardiovascular: Negative. Gastrointestinal: Negative. Genitourinary: Positive for dysuria, frequency and urgency. Negative for hematuria, pelvic pain, vaginal bleeding, vaginal discharge and vaginal pain. All other systems reviewed and are negative. 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 90 tablet 1 metoprolol succinate ER (TOPROL XL) 50 mg 24 hr tablet Take 1 tablet by mouth once daily. 90 tablet 1 cholecalciferol, vitamin D3, (VITAMIN D3 ORAL) Take by mouth. Biotin 2,500 mcg cap Take 5,000 mcg by mouth once daily. 60 capsule 12 fexofenadine (DARIO) 180 mg ORAL tablet Take 1 tablet by mouth once daily. 30 tablet 0 Clobetasol (CLOBEX) 0.05 % TOPICAL Cameron Apply 1 application to affected area once daily as needed. 0 aspirin(ECOTRIN LOW STRENGTH 81 MG TAB) Take one(1) tablet daily. 0 MULTI-VITAMIN TAB Take one(1) tablet daily. 0 CALCIUM + D 600 MG-200 UNIT TAB Take one(1) tablet daily. 0 nitrofurantoin monohydrate and macrocrystal (MACROBID) 100 mg capsule Take 1 capsule by mouth two times a day with meals for 5 days. 10 capsule 0 Current Facility-Administered Medications Medication Dose Route Frequency Provider Last Rate Last Admin perflutren lipid microspheres 1.3 mL in NaCl (PF) 0.9% 10 mL injection (DEFINITY) INTRAVENOUS DIRECTED PRN Rodríguez Theodore MD sodium chloride 0.9 % (flush) 10 mL (BD POSIFLUSH) 10 mL INTRAVENOUS DIRECTED PRN Rodríguez Theodore MD PAST SURGICAL HISTORY Procedure Laterality Date CAUTERY CERVIX CRYOCAUTERY INITIAL/REPEAT 1993 [place]aps since [place]; RICHARD/BSO 1994 COLONOSCOPY FLX DX W/COLLJ SPEC WHEN PFRMD 04/27/2001 Colonoscopy-repeat in -2011 COLONOSCOPY FLX DX W/COLLJ SPEC WHEN PFRMD 04/30/2011 EXCISION PILONIDAL CYST/SINUS SIMPLE Excision pilonidal cyst LIG/TRNSXJ FLP TUBE ABDL/VAG APPR UNI/BI Tubal ligation LUMBAR OR CAUDAL EPIDURAL STEROID INJECTION 02/23/2017 PAST SURGICAL HISTORY OF 05/26/2012 rotor cuff surgery (R) Dr Beaulieu PAST SURGICAL HISTORY OF Right 02/19/2020 reverse right shoulder replacement. PAST SURGICAL HISTORY OF 09/30/2022 cyctocele repair and bladder sling for incontinece, Dr. Odom REM LESION TRUNK,ARM, LEG <0.5 CM 03/01/2012 Exc. left lateral malleous skin lesion REM LESION TRUNK,ARM,LEG 0.6 -1.0CM 07/26/2007 Exc. right medial thigh skin lesion ROTATOR CUFF REPAIR 10/15/2015 SALPINGO-OOPHORECTOMY COMPL/PRTL UNI/BI SPX Salpingo-oophorectomy Bilateral SHX TOTAL SHOULDER REVERSE 05/13/2021 TOTAL ABDOMINAL HYSTERECT W/WO RMVL TUBE OVARY 1994 Hysterectomy, RICHARD Fibroids and bleeding FAMILY HISTORY Problem Relation Age of Onset Hypertension Mother pulmonary embolus Kidney Disease Mother other (Heart problem) Mother CA 10/11/2012 Hypertension Father Diabetes Sister Diabetes Paternal Grandmother Colon Cancer Maternal Aunt Breast Cancer Paternal Aunt Diabetes Paternal Aunt Diabetes Paternal Uncle Social History Tobacco Use Smoking status: Never Smokeless tobacco: Never Vaping Use Vaping Use: Never used Substance Use Topics Alcohol use: Yes Comment: rarely, maybe 3 glasses of wine a year Drug use: No Objective BP 122/74 Pulse 98 Temp 36.6 ?C (97.8 ?F) Resp 16 Wt 81.2 kg (179 lb) SpO2 97% BMI 31.72 kg/m? Physical Exam Vitals reviewed. (more content not included)... [facility] 01-10-2023 History of Presen t illness Narrative This note was created using [employer]. Subjective Sandhya Finn is a 77 year old female. HPI Presents with urinary frequency, dysuria and urgency over the past 3 days. She has had cloudy urine as well. No back pain or abdominal pain. No blood in urine. Denies fever or vomiting. Denies recurrent UTIs. No vaginal symptoms. Review of Systems Constitutional: Negative. HENT: Negative. Respiratory: Negative. Cardiovascular: Negative. Gastrointestinal: Negative. Genitourinary: Positive for dysuria, frequency and urgency. Negative for hematuria, pelvic pain, vaginal bleeding, vaginal discharge and vaginal pain. All other systems reviewed and are negative. 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 90 tablet 1 metoprolol succinate ER (TOPROL XL) 50 mg 24 hr tablet Take 1 tablet by mouth once daily. 90 tablet 1 cholecalciferol, vitamin D3, (VITAMIN D3 ORAL) Take by mouth. Biotin 2,500 mcg cap Take 5,000 mcg by mouth once daily. 60 capsule 12 fexofenadine (DARIO) 180 mg ORAL tablet Take 1 tablet by mouth once daily. 30 tablet 0 Clobetasol (CLOBEX) 0.05 % TOPICAL Cameron Apply 1 application to affected area once daily as needed. 0 aspirin(ECOTRIN LOW STRENGTH 81 MG TAB) Take one(1) tablet daily. 0 MULTI-VITAMIN TAB Take one(1) tablet daily. 0 CALCIUM + D 600 MG-200 UNIT TAB Take one(1) tablet daily. 0 nitrofurantoin monohydrate and macrocrystal (MACROBID) 100 mg capsule Take 1 capsule by mouth two times a day with meals for 5 days. 10 capsule 0 Current Facility-Administered Medications Medication Dose Route Frequency Provider Last Rate Last Admin perflutren lipid microspheres 1.3 mL in NaCl (PF) 0.9% 10 mL injection (DEFINITY) INTRAVENOUS DIRECTED PRN Rodríguez Theodore MD sodium chloride 0.9 % (flush) 10 mL (BD POSIFLUSH) 10 mL INTRAVENOUS DIRECTED PRN Rodríguez Theodore MD PAST SURGICAL HISTORY Procedure Laterality Date CAUTERY CERVIX CRYOCAUTERY INITIAL/REPEAT 1993 [place]aps since [place]; RICHARD/BSO 1994 COLONOSCOPY FLX DX W/COLLJ SPEC WHEN PFRMD 04/27/2001 Colonoscopy-repeat in -2011 COLONOSCOPY FLX DX W/COLLJ SPEC WHEN PFRMD 04/30/2011 EXCISION PILONIDAL CYST/SINUS SIMPLE Excision pilonidal cyst LIG/TRNSXJ FLP TUBE ABDL/VAG APPR UNI/BI Tubal ligation LUMBAR OR CAUDAL EPIDURAL STEROID INJECTION 02/23/2017 PAST SURGICAL HISTORY OF 05/26/2012 rotor cuff surgery (R) Dr Beaulieu PAST SURGICAL HISTORY OF Right 02/19/2020 reverse right shoulder replacement. PAST SURGICAL HISTORY OF 09/30/2022 cyctocele repair and bladder sling for incontinece, Dr. Odom REM LESION TRUNK,ARM, LEG <0.5 CM 03/01/2012 Exc. left lateral malleous skin lesion REM LESION TRUNK,ARM,LEG 0.6 -1.0CM 07/26/2007 Exc. right medial thigh skin lesion ROTATOR CUFF REPAIR 10/15/2015 SALPINGO-OOPHORECTOMY COMPL/PRTL UNI/BI SPX Salpingo-oophorectomy Bilateral SHX TOTAL SHOULDER REVERSE 05/13/2021 TOTAL ABDOMINAL HYSTERECT W/WO RMVL TUBE OVARY 1995 Hysterectomy, RICHARD Fibroids and bleeding FAMILY HISTORY Problem Relation Age of Onset Hypertension Mother pulmonary embolus Kidney Disease Mother other (Heart problem) Mother CA 10/11/2012 Hypertension Father Diabetes Sister Diabetes Paternal Grandmother Colon Cancer Maternal Aunt Breast Cancer Paternal Aunt Diabetes Paternal Aunt Diabetes Paternal Uncle Social History Tobacco Use Smoking status: Never Smokeless tobacco: Never Vaping Use Vaping Use: Never used Substance Use Topics Alcohol use: Yes Comment: rarely, maybe 3 glasses of wine a year Drug use: No Objective BP 122/74 Pulse 98 Temp 36.6 C (97.8 F) Resp 16 Wt 81.2 kg (179 lb) SpO2 97% BMI 31.72 kg/m Physical Exam Vitals reviewed. Constitutional: Appearance: Normal appearance. HENT: Head: Normocephalic and atraumatic. Right Ear: Tympanic membrane, ear canal and external ear normal. Left Ear: Tympanic membrane, ear canal and external ear normal. Cardiovascular: Rate and Rhythm: Normal rate and regular rhythm. Heart sounds: Normal heart sounds. Pulmonary: Effort: Pulmonary effort is normal. Breath sounds: Normal breath sounds. Abdominal: General: Abdomen is flat. There is no distension. Palpations: Abdomen is soft. Tenderness: There is no abdominal tenderness. There is no right CVA tenderness, left CVA tenderness or guarding. Musculoskeletal: Cervical back: Neck supple. Skin: General: Skin is warm and dry. ASSESSMENT/PLAN: 1. Acute UTI - ICD9: 599.0, ICD10: N39.0 acute - UA positive for ariadna esterase, hematuria, proteinuria, and nitrates - Send urine for culture - Begin treatment with Macrobid 100 mg BID for 5 days. Recent kidney function reviewed and normal. - UA DIP, URINE (POC) - URINE CULTURE - UA DIP B/O Viri Pineda PA-C documented in this encounter [facility] 11-11-2022 Note HNO ID: [id number] Author: Kandy Holder APRN.HOUSE REPAIRER Service: ? Author Type: Nurse Practitioner Type: Progress Notes Filed: 11/11/2022 10:35 AM Note Text: Chief Complaint Patient presents with: Follow Up HPI Sandhya Finn is a 77 year old female who presents here today for Above Complaints.. Patient presents for BP follow up. Patient was seen 1 month ago and started on metoprolol by Dr. Theodore. Patient presents with continued elevated BP. Patient home readings WNL. Patient reports she has white coat syndrome. Past medical history, appointments, medications, allergies reviewed. 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 Pain in joint RIGHT HIP Papanicolaou smear of cervix with atypical squamous cells of undetermined significance (ASC-US) 1992; 1993 Psoriasis 07/12/2011 Restless legs syndrome (RLS) 04/22/2014 Seborrheic dermatitis of scalp 05/26/2010 Symptomatic menopausal or female climacteric states Previous Surgical History PAST SURGICAL HISTORY Procedure Laterality Date CAUTERY CERVIX CRYOCAUTERY INITIAL/REPEAT 1993 [place]aps since [place]; RICHARD/BSO 1994 COLONOSCOPY FLX DX W/COLLJ SPEC WHEN PFRMD 04/27/2001 Colonoscopy-repeat in COLONOSCOPY FLX DX W/COLLJ SPEC WHEN PFRMD 04/30/2011 EXCISION PILONIDAL CYST/SINUS SIMPLE Excision pilonidal cyst LIG/TRNSXJ FLP TUBE ABDL/VAG APPR UNI/BI Tubal ligation LUMBAR OR CAUDAL EPIDURAL STEROID INJECTION 02/23/2017 PAST SURGICAL HISTORY OF 05/26/2012 rotor cuff surgery (R) Dr Beaulieu PAST SURGICAL HISTORY OF Right 02/19/2020 reverse right shoulder replacement. PAST SURGICAL HISTORY OF 09/30/2022 cyctocele repair and bladder sling for incontinece, Dr. Odom REM LESION TRUNK,ARM, LEG <0.5 CM 03/01/2012 Exc. left lateral malleous skin lesion REM LESION TRUNK,ARM,LEG 0.6 -1.0CM 07/26/2007 Exc. right medial thigh skin lesion ROTATOR CUFF REPAIR 10/15/2015 SALPINGO-OOPHORECTOMY COMPL/PRTL UNI/BI SPX Salpingo-oophorectomy Bilateral SHX TOTAL SHOULDER REVERSE 05/13/2021 TOTAL ABDOMINAL HYSTERECT W/WO RMVL TUBE OVARY 1994 Hysterectomy, RICHARD Fibroids and bleeding Family History FAMILY HISTORY Problem Relation Age of Onset Hypertension Mother pulmonary embolus Kidney Disease Mother other (Heart problem) Mother CA 10/11/2012 Hypertension Father Diabetes Sister Diabetes Paternal Grandmother Colon Cancer Maternal Aunt Breast Cancer Paternal Aunt Diabetes Paternal Aunt Diabetes Paternal Uncle Patient Allergies ALLERGIES Allergen Reactions Lisinopril Angioedema Lipitor [Atorvastat* Myalgia Pravachol [Pravasta* Intolerance muscle ache Sulfa (Sulfonamide * GI Upset Current Medications Current Outpatient Medications on File Prior to Visit Medication Sig metoprolol succinate ER (TOPROL XL) 50 mg 24 hr tablet Take 1 tablet by mouth once daily. rosuvastatin (CRESTOR) 20 mg tablet Take 1 tablet by mouth once daily. cholecalciferol, vitamin D3, (VITAMIN D3 ORAL) Take by mouth. Biotin 2,500 mcg cap Take 5,000 mcg by mouth once daily. fexofenadine (DARIO) 180 mg ORAL tablet Take 1 tablet by mouth once daily. Clobetasol (CLOBEX) 0.05 % TOPICAL Cameron Apply 1 application to affected area once daily as needed. aspirin(ECOTRIN LOW STRENGTH 81 MG TAB) Take one(1) tablet daily. MULTI-VITAMIN TAB Take one(1) tablet daily. CALCIUM + D 600 MG-200 UNIT TAB Take one(1) tablet daily. Current Facility-Administered Medications on File Prior to Visit Medication perflutren lipid microspheres 1.3 mL in NaCl (PF) 0.9% 10 mL injection (DEFINITY) sodium chloride 0.9 % (flush) 10 mL (BD POSIFLUSH) Social History Social History Tobacco Use Smoking status: Never Smokeless tobacco: Never Vaping Use Vaping Use: Never used Substance Use Topics Alcohol use: Yes Comment: rarely, maybe 3 glasses of wine a year Drug use: No Review of Symptoms REVIEW OF SYSTEMS SEE HPI EXAM: BP 142/84 Pulse 72 Resp 14 Wt 79.4 kg (175 lb) BMI 31.01 kg/m? General Appearance: Well appearing, alert, in no acute distress, well-hydrated, well nourished.. Lungs: Lungs clear to auscultation. No wheezing, rhonchi, rales.. Heart: RRR without murmur, gallop, or rubs. No ectopy. Health Maintenance List COVID-19 VACCINE(6 - Moderna series) due on (more content not included)... [facility] 11-11-2022 History of Presen t illness Narrative Chief Complaint Patient presents with: Follow Up HPI Sandhya Finn is a 77 year old female who presents here today for Above Complaints.. Patient presents for BP follow up. Patient was seen 1 month ago and started on metoprolol by Dr. Theodore. Patient presents with continued elevated BP. Patient home readings WNL. Patient reports she has white coat syndrome. Past medical history, appointments, medications, allergies reviewed. 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 Pain in joint RIGHT HIP Papanicolaou smear of cervix with atypical squamous cells of undetermined significance (ASC-US) 1992; 1993 Psoriasis 07/12/2011 Restless legs syndrome (RLS) 04/22/2014 Seborrheic dermatitis of scalp 05/26/2010 Symptomatic menopausal or female climacteric states Previous Surgical History PAST SURGICAL HISTORY Procedure Laterality Date CAUTERY CERVIX CRYOCAUTERY INITIAL/REPEAT 1993 Paps since ; RICHARD/BSO 1994 COLONOSCOPY FLX DX W/COLLJ SPEC WHEN PFRMD 04/27/2001 Colonoscopy-repeat in COLONOSCOPY FLX DX W/COLLJ SPEC WHEN PFRMD 04/30/2011 EXCISION PILONIDAL CYST/SINUS SIMPLE Excision pilonidal cyst LIG/TRNSXJ FLP TUBE ABDL/VAG APPR UNI/BI Tubal ligation LUMBAR OR CAUDAL EPIDURAL STEROID INJECTION 02/23/2017 PAST SURGICAL HISTORY OF 05/26/2012 rotor cuff surgery (R) Dr Beaulieu PAST SURGICAL HISTORY OF Right 02/19/2020 reverse right shoulder replacement. PAST SURGICAL HISTORY OF 09/30/2022 cyctocele repair and bladder sling for incontinece, Dr. Odom REM LESION TRUNK,ARM, LEG <0.5 CM 03/01/2012 Exc. left lateral malleous skin lesion REM LESION TRUNK,ARM,LEG 0.6 -1.0CM 07/26/2007 Exc. right medial thigh skin lesion ROTATOR CUFF REPAIR 10/15/2015 SALPINGO-OOPHORECTOMY COMPL/PRTL UNI/BI SPX Salpingo-oophorectomy Bilateral SHX TOTAL SHOULDER REVERSE 05/13/2021 TOTAL ABDOMINAL HYSTERECT W/WO RMVL TUBE OVARY 1994 Hysterectomy, RICHARD Fibroids and bleeding Family History FAMILY HISTORY Problem Relation Age of Onset Hypertension Mother pulmonary embolus Kidney Disease Mother other (Heart problem) Mother CA 10/11/2012 Hypertension Father Diabetes Sister Diabetes Paternal Grandmother Colon Cancer Maternal Aunt Breast Cancer Paternal Aunt Diabetes Paternal Aunt Diabetes Paternal Uncle Patient Allergies ALLERGIES Allergen Reactions Lisinopril Angioedema Lipitor [Atorvastat* Myalgia Pravachol [Pravasta* Intolerance muscle ache Sulfa (Sulfonamide * GI Upset Current Medications Current Outpatient Medications on File Prior to Visit Medication Sig metoprolol succinate ER (TOPROL XL) 50 mg 24 hr tablet Take 1 tablet by mouth once daily. rosuvastatin (CRESTOR) 20 mg tablet Take 1 tablet by mouth once daily. cholecalciferol, vitamin D3, (VITAMIN D3 ORAL) Take by mouth. Biotin 2,500 mcg cap Take 5,000 mcg by mouth once daily. fexofenadine (DARIO) 180 mg ORAL tablet Take 1 tablet by mouth once daily. Clobetasol (CLOBEX) 0.05 % TOPICAL Cameron Apply 1 application to affected area once daily as needed. aspirin(ECOTRIN LOW STRENGTH 81 MG TAB) Take one(1) tablet daily. MULTI-VITAMIN TAB Take one(1) tablet daily. CALCIUM + D 600 MG-200 UNIT TAB Take one(1) tablet daily. Current Facility-Administered Medications on File Prior to Visit Medication perflutren lipid microspheres 1.3 mL in NaCl (PF) 0.9% 10 mL injection (DEFINITY) sodium chloride 0.9 % (flush) 10 mL (BD POSIFLUSH) Social History Social History Tobacco Use Smoking status: Never Smokeless tobacco: Never Vaping Use Vaping Use: Never used Substance Use Topics Alcohol use: Yes Comment: rarely, maybe 3 glasses of wine a year Drug use: No Review of Symptoms REVIEW OF SYSTEMS SEE HPI EXAM: BP 142/84 Pulse 72 Resp 14 Wt 79.4 kg (175 lb) BMI 31.01 kg/m General Appearance: Well appearing, alert, in no acute distress, well-hydrated, well nourished.. Lungs: Lungs clear to auscultation. No wheezing, rhonchi, rales.. Heart: RRR without murmur, gallop, or rubs. No ectopy. Health Maintenance List COVID-19 VACCINE(6 - Moderna series) due on 04/16/2022 INFLUENZA(1) due on 11/12/2022 BP CONTROLLED (<130/80) due on 03/19/2023 ANNUAL PCP TEAM CHRONIC DISEASE VISIT due on 10/15/2023 DIABETES SCREEN due on 09/10/2025 COLORECTAL CANCER SCREENING due on 09/08/2026 LIPID SCREEN due on 09/11/2027 DTAP,TDAP,TD(7 - Td or Tdap) due on 10/11/2027 BONE DENSITY Completed ADVANCE DIRECTIVE DISCUSSION Completed DEPRESSION ASSESSMENT Completed HEPATITIS C SCREENING Completed SHINGRIX VACCINE Completed PNEUMOCOCCAL: 65+ Completed HPV VACCINE Aged Out MAMMOGRAM Discontinued ASSESSMENT/PLAN: 1. Essential hypertension, benign - ICD9: 401.1, ICD10: I10 - Home blood pressure readings controlled - Factors affecting control: suspected white coat hypertension - Continue current medications - Recommend home blood pressure monitoring, to bring results to next visit - Encouraged sodium restriction, DASH or Mediterranean diet - Recommend regular aerobic exercise - Discussed need for and benefit of weight loss. BMI 31.01 kg/(m^2) - Reviewed risks of hypertension and principles of treatment Kandy Holder APRN.HOUSE REPAIRER documented in this encounter [facility] 10-16-2022 Miscellaneous Notes Formattin g of this note might be different from the original. Spoke with pt and information listed below given. Pt verbalizes understanding. Hue Gee LPN Let patient know the US of her heart only showed slight increase in size in the left upper chamber. Us trying to keep her blood pressure well controlled can help prevent this from getting worse. documented in this encounter [facility] 10-14-2022 Note HNO ID: [id number] Author: Rodríguez Theodore MD Service: ? Author Type: Physician Type: Progress Notes Filed: 10/17/2022 1:51 PM Note Text: Chief Complaint No chief complaint on file. JHON Finn is a 77 year old female who presents here today for Hospital Discharge Follow up.. Office visit - hospital follow up Patient present to our [facility] care on 10/11/2022 with c/o increasing lip swelling. She was advised to go to [facility] ER and was diagnosed with angioedema. Patient was monitored for a day and treated with steroids and antihistamine. She was sent home on prednisone 40 mg ad ay and pepcid. No new BP medication had been started. Swelling was mainly at the base of the nose and was spreading down around her mouth. Patient never felt like her airway was closing off or that she was short of breath. Patient is doing better. Has some mild swelling above the right upper lip and checks still but much improved over all. Past medical history, appointments, medications, allergies reviewed. 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 Pain in joint RIGHT HIP Papanicolaou smear of cervix with atypical squamous cells of undetermined significance (ASC-US) 1992; 1993 Psoriasis 07/12/2011 Restless legs syndrome (RLS) 04/22/2014 Seborrheic dermatitis of scalp 05/26/2010 Symptomatic menopausal or female climacteric states Previous Surgical History PAST SURGICAL HISTORY Procedure Laterality Date CAUTERY CERVIX CRYOCAUTERY INITIAL/REPEAT 1993 Paps since [place]; RICHARD/BSO 1994 COLONOSCOPY FLX DX W/COLLJ SPEC WHEN PFRMD 04/27/2001 Colonoscopy-repeat in -2011 COLONOSCOPY FLX DX W/COLLJ SPEC WHEN PFRMD 04/30/2011 EXCISION PILONIDAL CYST/SINUS SIMPLE Excision pilonidal cyst LIG/TRNSXJ FLP TUBE ABDL/VAG APPR UNI/BI Tubal ligation LUMBAR OR CAUDAL EPIDURAL STEROID INJECTION 02/23/2017 PAST SURGICAL HISTORY OF 05/26/2012 rotor cuff surgery (R) Dr Beaulieu PAST SURGICAL HISTORY OF Right 02/19/2020 reverse right shoulder replacement. PAST SURGICAL HISTORY OF 09/30/2022 cyctocele repair and bladder sling for incontinece, Dr. Odom REM LESION TRUNK,ARM, LEG <0.5 CM 03/01/2012 Exc. left lateral malleous skin lesion REM LESION TRUNK,ARM,LEG 0.6 -1.0CM 07/26/2007 Exc. right medial thigh skin lesion ROTATOR CUFF REPAIR 10/15/2015 SALPINGO-OOPHORECTOMY COMPL/PRTL UNI/BI SPX Salpingo-oophorectomy Bilateral SHX TOTAL SHOULDER REVERSE 05/13/2021 TOTAL ABDOMINAL HYSTERECT W/WO RMVL TUBE OVARY 1994 Hysterectomy, RICHARD Fibroids and bleeding Family History FAMILY HISTORY Problem Relation Age of Onset Hypertension Mother pulmonary embolus Kidney Disease Mother other (Heart problem) Mother CA 10/11/2012 Hypertension Father Diabetes Sister Diabetes Paternal Grandmother Colon Cancer Maternal Aunt Breast Cancer Paternal Aunt Diabetes Paternal Aunt Diabetes Paternal Uncle Patient Allergies ALLERGIES Allergen Reactions Lipitor [Atorvastat* Myalgia Pravachol [Pravasta* Intolerance muscle ache Sulfa (Sulfonamide * GI Upset Current Medications Current Outpatient Medications on File Prior to Visit Medication Sig lisinopril (ZESTRIL) 40 mg tablet Take 1 tablet by mouth once daily. rosuvastatin (CRESTOR) 20 mg tablet Take 1 tablet by mouth once daily. cholecalciferol, vitamin D3, (VITAMIN D3 ORAL) Take by mouth. Biotin 2,500 mcg cap Take 5,000 mcg by mouth once daily. fexofenadine (DARIO) 180 mg ORAL tablet Take 1 tablet by mouth once daily. Clobetasol (CLOBEX) 0.05 % TOPICAL Cameron Apply 1 application to affected area once daily as needed. aspirin(ECOTRIN LOW STRENGTH 81 MG TAB) Take one(1) tablet daily. MULTI-VITAMIN TAB Take one(1) tablet daily. CALCIUM + D 600 MG-200 UNIT TAB Take one(1) tablet daily. No current facility-administered medications on file prior to visit. Social History Social History Tobacco Use Smoking status: Never Smokeless tobacco: Never Vaping Use Vaping Use: Never used Substance Use Topics Alcohol use: Yes Comment: rarely, maybe 3 glasses of wine a year Drug use: No Review of Symptoms REVIEW OF SYSTEMS See HPI EXAM: BP 161/101 Pulse 85 Resp 16 Wt 79.8 kg (176 lb) BMI 31.18 kg/m? General Appearance: Well appearing, alert, in no acute distress, well- (more content not included)... [facility] 10-14-2022 Nurse Note 142/83 146/84 147/81 144/84 145/85 139/84 documented in this encounter [facility] 10-14-2022 History of Presen t illness Narrative Chief Complaint No chief complaint on file. HPI Sandhya Finn is a 77 year old female who presents here today for Hospital Discharge Follow up.. Office visit - hospital follow up Patient present to our [facility] care on 10/11/2022 with c/o increasing lip swelling. She was advised to go to [facility] ER and was diagnosed with angioedema. Patient was monitored for a day and treated with steroids and antihistamine. She was sent home on prednisone 40 mg ad ay and pepcid. No new BP medication had been started. Swelling was mainly at the base of the nose and was spreading down around her mouth. Patient never felt like her airway was closing off or that she was short of breath. Patient is doing better. Has some mild swelling above the right upper lip and checks still but much improved over all. Past medical history, appointments, medications, allergies reviewed. 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 Pain in joint RIGHT HIP Papanicolaou smear of cervix with atypical squamous cells of undetermined significance (ASC-US) 1992; 1993 Psoriasis 07/12/2011 Restless legs syndrome (RLS) 04/22/2014 Seborrheic dermatitis of scalp 05/26/2010 Symptomatic menopausal or female climacteric states Previous Surgical History PAST SURGICAL HISTORY Procedure Laterality Date CAUTERY CERVIX CRYOCAUTERY INITIAL/REPEAT 1993 Paps since [place]; RICHARD/BSO 1994 COLONOSCOPY FLX DX W/COLLJ SPEC WHEN PFRMD 04/27/2001 Colonoscopy-repeat in COLONOSCOPY FLX DX W/COLLJ SPEC WHEN PFRMD 04/30/2011 EXCISION PILONIDAL CYST/SINUS SIMPLE Excision pilonidal cyst LIG/TRNSXJ FLP TUBE ABDL/VAG APPR UNI/BI Tubal ligation LUMBAR OR CAUDAL EPIDURAL STEROID INJECTION 02/23/2017 PAST SURGICAL HISTORY OF 05/26/2012 rotor cuff surgery (R) Dr Beaulieu PAST SURGICAL HISTORY OF Right 02/19/2020 reverse right shoulder replacement. PAST SURGICAL HISTORY OF 09/30/2022 cyctocele repair and bladder sling for incontinece, Dr. Odom REM LESION TRUNK,ARM, LEG <0.5 CM 03/01/2012 Exc. left lateral malleous skin lesion REM LESION TRUNK,ARM,LEG 0.6 -1.0CM 07/26/2007 Exc. right medial thigh skin lesion ROTATOR CUFF REPAIR 10/15/2015 SALPINGO-OOPHORECTOMY COMPL/PRTL UNI/BI SPX Salpingo-oophorectomy Bilateral SHX TOTAL SHOULDER REVERSE 05/13/2021 TOTAL ABDOMINAL HYSTERECT W/WO RMVL TUBE OVARY 1994 Hysterectomy, RICHARD Fibroids and bleeding Family History FAMILY HISTORY Problem Relation Age of Onset Hypertension Mother pulmonary embolus Kidney Disease Mother other (Heart problem) Mother CA 10/11/2012 Hypertension Father Diabetes Sister Diabetes Paternal Grandmother Colon Cancer Maternal Aunt Breast Cancer Paternal Aunt Diabetes Paternal Aunt Diabetes Paternal Uncle Patient Allergies ALLERGIES Allergen Reactions Lipitor [Atorvastat* Myalgia Pravachol [Pravasta* Intolerance muscle ache Sulfa (Sulfonamide * GI Upset Current Medications Current Outpatient Medications on File Prior to Visit Medication Sig lisinopril (ZESTRIL) 40 mg tablet Take 1 tablet by mouth once daily. rosuvastatin (CRESTOR) 20 mg tablet Take 1 tablet by mouth once daily. cholecalciferol, vitamin D3, (VITAMIN D3 ORAL) Take by mouth. Biotin 2,500 mcg cap Take 5,000 mcg by mouth once daily. fexofenadine (DARIO) 180 mg ORAL tablet Take 1 tablet by mouth once daily. Clobetasol (CLOBEX) 0.05 % TOPICAL Cameron Apply 1 application to affected area once daily as needed. aspirin(ECOTRIN LOW STRENGTH 81 MG TAB) Take one(1) tablet daily. MULTI-VITAMIN TAB Take one(1) tablet daily. CALCIUM + D 600 MG-200 UNIT TAB Take one(1) tablet daily. No current facility-administered medications on file prior to visit. Social History Social History Tobacco Use Smoking status: Never Smokeless tobacco: Never Vaping Use Vaping Use: Never used Substance Use Topics Alcohol use: Yes Comment: rarely, maybe 3 glasses of wine a year Drug use: No Review of Symptoms REVIEW OF SYSTEMS See HPI EXAM: BP 161/101 Pulse 85 Resp 16 Wt 79.8 kg (176 lb) BMI 31.18 kg/m General Appearance: Well appearing, alert, in no acute distress, well-hydrated, well nourished.. Neck: Supple, no strider Lungs: Lungs clear to auscultation. No wheezing, rhonchi, rales.. Heart: RRR without murmur, gallop, or rubs. No ectopy. Health Maintenance List COVID-19 VACCINE(6 - Moderna series) due on 04/16/2022 INFLUENZA(1) due on 11/12/2022 BP CONTROLLED (<130/80) due on 03/19/2023 ANNUAL PCP TEAM CHRONIC DISEASE VISIT due on 09/17/2023 DIABETES SCREEN due on 09/10/2025 COLORECTAL CANCER SCREENING due on 09/08/2026 LIPID SCREEN due on 09/11/2027 DTAP,TDAP,TD(7 - Td or Tdap) due on 10/11/2027 BONE DENSITY Completed ADVANCE DIRECTIVE DISCUSSION Completed DEPRESSION ASSESSMENT Completed HEPATITIS C SCREENING Completed SHINGRIX VACCINE Completed PNEUMOCOCCAL: 65+ Completed HPV VACCINE Aged Out MAMMOGRAM Discontinued Data reviewed A/P ASSESSMENT/PLAN: 1. Angioedema, initial encounter - ICD9: 995.1, ICD10: T78.3XXA (primary diagnosis) - resolving. Patient to finish up the prednisone and Pepcid 2. Essential hypertension, benign - ICD9: 401.1, ICD10: I10 - Uncontrolled - Start metoprolol succinate 50 mg a day - Recommend home blood pressure monitoring, to bring results to next visit - Encouraged sodium restriction, DASH or Mediterranean diet - Recommend regular aerobic exercise Check - ECHO - PERFLUTREN LIPID MICROSPHERES 1.1 MG/ML INJECTION IN NS 10 ML - SODIUM CHLORIDE 0.9 % (FLUSH) INJECTION SYRINGE 3. LVH (left ventricular hypertrophy) - ICD9: 429.3, ICD10: I51.7 Check - ECHO - PERFLUTREN LIPID MICROSPHERES 1.1 MG/ML INJECTION IN NS 10 ML - SODIUM CHLORIDE 0.9 % (FLUSH) INJECTION SYRINGE 4. Abnormal EKG - ICD9: 794.31, ICD10: R94.31 Check - ECHO - PERFLUTREN LIPID MICROSPHERES 1.1 MG/ML INJECTION IN NS 10 ML - SODIUM CHLORIDE 0.9 % (FLUSH) INJECTION SYRINGE Requested Prescriptions Signed Prescriptions Disp Refills metoprolol succinate ER (TOPROL XL) 50 mg 24 hr tablet 90 tablet 1 Sig: Take 1 tablet by mouth once daily. Fu 4 weeks HTN check Rodríguez Theodore MD documented in this encounter [facility] 10-13-2022 Miscellaneous Notes Formattin g of this note might be different from the original. Patient notified and voiced understanding. Patient indicated that machine is new and and has been checked in the office. Parisa Powell MA Let patient know we will wait and re-eval her BP in the office tomorrow. If she has not brought her home cuff in to be checked in the past year she should bring it with her to the appt. Pt calling with BP readings: 10/12/22 4:45PM 129/87 P: 90 7:30PM 132/88 P: 98 8:45PM 132/91 P 95 10/13/22 6AM 136/83 P: 68 8AM: 130/82 P: 82 Pt states she was instructed by dr at hospital she should no longer take rose mary inhibitors or ARBs. Pt reports she is 'not feeling too bad'. Pt has a hosp FU 10/14/22 at 2PM. Loretta Wolfe LPN documented in this encounter [facility] 10-12-2022 Miscellaneous Notes Formattin g of this note might be different from the original. Info noted and will await update. Pt called back and I had her take her BP while I waited, because she has not been taking it while she has been home. Her BP was 151/97 HR 93. She states she wasn't up running around, she had just been sitting. She said it had been running lower at the hospital, but she was laying in bed. She is going to take it a couple more times tonight and in the morning and call back tomorrow morning. Pt has an appointment with provider on . Message left for pt to call back. Karlene Ling Ma See if patient can let you know what her BP has been running since discharge. Pt reports that she was admitted to [facility] for angioedema related to Lisinopril use and was D/C'd today 10/12/22. Pt states she is not currently on any other BP meds at this time. Scheduled soonest available hospital F/U appt with PCP team on 10/14/22. Pt requested to stay within PCP team. Pt asking if OK to wait until 10/14/22 to be advised on new BP med since she is not currently taking anything. documented in this encounter [facility] 10-11-2022 Note HNO ID: [id number] Author: Jeanna Castro APRN.CNP Service: ? Author Type: Nurse Practitioner Type: Progress Notes Filed: 10/11/2022 8:25 PM Note Text: Triage note: Patient presented to [facility] for worsening upper lip swelling. This started about 7 hours ago, with just a small amount on the right side of lip progressing to full upper lip. She denies any insect bites, new medications, food or exposure to any chemicals. She is on lisinopril. Suspicious for angioedema Due to nature of patient's complaint and lack of investigative tools available at [facility], recommend patient be seen at nearest ED for further work up. Patient declined squad, not short of breath or throat swelling present, will go to Early ED Jeanna Castro APRN.CNP [facility] 10-11-2022 History of Presen t illness Narrative Triage note: Patient presented to [facility] for worsening upper lip swelling. This started about 7 hours ago, with just a small amount on the right side of lip progressing to full upper lip. She denies any insect bites, new medications, food or exposure to any chemicals. She is on lisinopril. Suspicious for angioedema Due to nature of patient's complaint and lack of investigative tools available at [facility], recommend patient be seen at nearest ED for further work up. Patient declined squad, not short of breath or throat swelling present, will go to Early ED Jeanna Castro APRN.CNP documented in this encounter [facility] 09-30-2022 Note HNO ID: [id number] Author: Parisa Powell MA Service: ? Author Type: Asp Net C Developer Type: Progress Notes Filed: 10/02/2022 1:26 PM Note Text: Scan on 09/30/2022 9:30 AM by Provider, External, PA-C: MILLICENT Powell MA [facility] 09-24-2022 Note HNO ID: [id number] Author: Bessy Stone Ma Service: ? Author Type: ? Type: Progress Notes Filed: 09/26/2022 12:56 PM Note Text: View External Labs - Hematology [ID [id number]] View External Labs - Chemistry [ID [id number]] [facility] 09-24-2022 History of Presen t illness Narrative View External Labs - Hematology [ID [id number]] View External Labs - Chemistry [ID [id number]] documented in this encounter [facility] 09-17-2022 Miscellaneous Notes Formattin g of this note might be different from the original. Please see patient message regarding lab work for 03/23/23 appointment. Last lab work completed 09/10/22. documented in this encounter [facility] 09-16-2022 Note HNO ID: [id number] Author: Kandy Holder APRN.LUCIA Service: ? Author Type: Nurse Practitioner Type: Progress Notes Filed: 09/16/2022 9:21 AM Note Text: Sandhya Finn is a 77 year old female here for a Medicare Subsequent Annual Wellness Visit Health Risk Assessment In general, health is: Very good Concerns with balance: Not at all Concerns with teeth or dentures: Not at all Concerns with sexual function: Not at all [place] anxious, stressed, angry, irritable, lonely, isolated, or had thoughts of hurting themself: Not at all Has little interest or pleasure in doing things: Several days Bothered by feeling down, depressed, or hopeless: Several days Needs help with grocery shopping, cooking, housework, bathing, grooming, dressing, eating, sitting or standing, walking, using the toilet, handling finances, taking medications, using the telephone, or driving: No Following safety precautions in the home environment and vehicle: removed throw rugs from floors, installed grab bars in the bathroom, handrails in stairwells, having adequate lighting, wearing seatbelt at all times?: Yes Smokes cigarettes, vapes, or chew tobacco: No Eats healthy foods including fruits, vegetables, whole grains, and fiber-rich foods: Nearly every day Number of days per week engages in exercise: 4 days Average alcohol consumption: Never Current Providers Specialists: I have reviewed specialist-related care of the patient in the medical record. Medical/Family history review Reviewed and updated problem list, medical/surgical/family/social history, medications, and allergies. Opioid use review Patient is not currently using opioids. Depression screening Depression Screening PHQ-2 Score PHQ-9 Score 03/19/2022 2 - Depression screening tool completed and reviewed. Based on score and interview, patient is not at risk for depression. Screening tool discussed with patient, and I recommended no further intervention at this time. Cognitive screening Mini Cog Score: Score: 5 Cognitive screening reviewed and no further action needed (score 3-5) Functional Observation Was the patient's timed Up AND Go test unsteady or ? 12 seconds? Yes Advance Care Planning End of Life planning discussed, including patient's advanced directive wishes: Yes Measurements BP 134/86 Pulse 74 Resp 14 Wt 176 lb (79.8kg) Visual acuity (required for Welcome to Medicare): follows with optometry/ophthalmology Hearing Evaluation: within normal limits Assessment/Plan - Counseled on healthy diet and regular exercise - Fall avoidance - Depression screening Chief Complaint Patient presents with: Physical HPI Sandhya Finn is a 77 year old female who presents here today for Above Complaints.. Patient presents for routine follow up. Patient reports she is currently feeling well and is scheduled to have her bladder prolapse surgically repaired September 30. Past medical history, appointments, medications, allergies reviewed. 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 Pain in joint RIGHT HIP Papanicolaou smear of cervix with atypical squamous cells of undetermined significance (ASC-US) 1992; 1993 Psoriasis 07/12/2011 Restless legs syndrome (RLS) 04/22/2014 Seborrheic dermatitis of scalp 05/26/2010 Symptomatic menopausal or female climacteric states Previous Surgical History PAST SURGICAL HISTORY Procedure Laterality Date CAUTERY CERVIX CRYOCAUTERY INITIAL/REPEAT 1993 [place]aps since [place]; RICHARD/BSO 1994 COLONOSCOPY FLX DX W/COLLJ SPEC WHEN PFRMD 04/27/2001 Colonoscopy-repeat in COLONOSCOPY FLX DX W/COLLJ SPEC WHEN PFRMD 04/30/2011 EXCISION PILONIDAL CYST/SINUS SIMPLE Excision pilonidal cyst LIG/TRNSXJ FLP TUBE ABDL/VAG APPR UNI/BI Tubal ligation LUMBAR OR CAUDAL EPIDURAL STEROID INJECTION 02/23/2017 PAST SURGICAL HISTORY OF 05/26/2012 rotor cuff surgery (R) Dr Beaulieu PAST SURGICAL HISTORY OF Right 02/19/2020 reverse right shoulder replacement. REM LESION TRUNK,ARM, LEG <0.5 CM 03/01/2012 Exc. left lateral malleous skin lesion REM LESION TRUNK,ARM,LEG 0.6 -1.0CM 07/26/2007 Exc. right medial thigh skin lesion ROTATOR CUFF REPAIR 10/15/2015 SALPINGO-OOPHORECTOMY COMPL/PRTL UNI/BI SPX Salpingo-oophorectomy Bilateral SHX TOTAL S (more content not included)... [facility] 09-16-2022 History of Presen t illness Narrative Sandhya Finn is a 77 year old female here for a Medicare Subsequent Annual Wellness Visit Health Risk Assessment In general, health is: Very good Concerns with balance: Not at all Concerns with teeth or dentures: Not at all Concerns with sexual function: Not at all [place] anxious, stressed, angry, irritable, lonely, isolated, or had thoughts of hurting themself: Not at all Has little interest or pleasure in doing things: Several days Bothered by feeling down, depressed, or hopeless: Several days Needs help with grocery shopping, cooking, housework, bathing, grooming, dressing, eating, sitting or standing, walking, using the toilet, handling finances, taking medications, using the telephone, or driving: No Following safety precautions in the home environment and vehicle: removed throw rugs from floors, installed grab bars in the bathroom, handrails in stairwells, having adequate lighting, wearing seatbelt at all times?: Yes Smokes cigarettes, vapes, or chew tobacco: No Eats healthy foods including fruits, vegetables, whole grains, and fiber-rich foods: Nearly every day Number of days per week engages in exercise: 4 days Average alcohol consumption: Never Current Providers Specialists: I have reviewed specialist-related care of the patient in the medical record. Medical/Family history review Reviewed and updated problem list, medical/surgical/family/social history, medications, and allergies. Opioid use review Patient is not currently using opioids. Depression screening Depression Screening PHQ-2 Score PHQ-9 Score 03/19/2022 2 - Depression screening tool completed and reviewed. Based on score and interview, patient is not at risk for depression. Screening tool discussed with patient, and I recommended no further intervention at this time. Cognitive screening Mini Cog Score: Score: 5 Cognitive screening reviewed and no further action needed (score 3-5) Functional Observation Was the patient's timed Up & Go test unsteady or ? 12 seconds? Yes Advance Care Planning End of Life planning discussed, including patient's advanced directive wishes: Yes Measurements BP 134/86 Pulse 74 Resp 14 Wt 176 lb (79.8kg) Visual acuity (required for Welcome to Medicare): follows with optometry/ophthalmology Hearing Evaluation: within normal limits Assessment/Plan - Counseled on healthy diet and regular exercise - Fall avoidance - Depression screening Chief Complaint Patient presents with: Physical HPI Sandhya Finn is a 77 year old female who presents here today for Above Complaints.. Patient presents for routine follow up. Patient reports she is currently feeling well and is scheduled to have her bladder prolapse surgically repaired September 30. Past medical history, appointments, medications, allergies reviewed. 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 Pain in joint RIGHT HIP Papanicolaou smear of cervix with atypical squamous cells of undetermined significance (ASC-US) 1992; 1993 Psoriasis 07/12/2011 Restless legs syndrome (RLS) 04/22/2014 Seborrheic dermatitis of scalp 05/26/2010 Symptomatic menopausal or female climacteric states Previous Surgical History PAST SURGICAL HISTORY Procedure Laterality Date CAUTERY CERVIX CRYOCAUTERY INITIAL/REPEAT 1993 Paps since ; RICHARD/BSO 1994 COLONOSCOPY FLX DX W/COLLJ SPEC WHEN PFRMD 04/27/2001 Colonoscopy-repeat in COLONOSCOPY FLX DX W/COLLJ SPEC WHEN PFRMD 04/30/2011 EXCISION PILONIDAL CYST/SINUS SIMPLE Excision pilonidal cyst LIG/TRNSXJ FLP TUBE ABDL/VAG APPR UNI/BI Tubal ligation LUMBAR OR CAUDAL EPIDURAL STEROID INJECTION 02/23/2017 PAST SURGICAL HISTORY OF 05/26/2012 rotor cuff surgery (R) Dr Beaulieu PAST SURGICAL HISTORY OF Right 02/19/2020 reverse right shoulder replacement. REM LESION TRUNK,ARM, LEG <0.5 CM 03/01/2012 Exc. left lateral malleous skin lesion REM LESION TRUNK,ARM,LEG 0.6 -1.0CM 07/26/2007 Exc. right medial thigh skin lesion ROTATOR CUFF REPAIR 10/15/2015 SALPINGO-OOPHORECTOMY COMPL/PRTL UNI/BI SPX Salpingo-oophorectomy Bilateral SHX TOTAL SHOULDER REVERSE 05/13/2021 TOTAL ABDOMINAL HYSTERECT W/WO RMVL TUBE OVARY 1994 Hysterectomy, RICHARD Fibroids and bleeding Family History FAMILY HISTORY Problem Relation Age of Onset Hypertension Mother pulmonary embolus Kidney Disease Mother other (Heart problem) Mother CA 10/11/2012 Hypertension Father Diabetes Sister Diabetes Paternal Grandmother Colon Cancer Maternal Aunt Breast Cancer Paternal Aunt Diabetes Paternal Aunt Diabetes Paternal Uncle Patient Allergies ALLERGIES Allergen Reactions Lipitor [Atorvastat* Myalgia Pravachol [Pravasta* Intolerance muscle ache Sulfa (Sulfonamide * GI Upset Current Medications Current Outpatient Medications on File Prior to Visit Medication Sig lisinopril (ZESTRIL) 40 mg tablet Take 1 tablet by mouth once daily. rosuvastatin (CRESTOR) 20 mg tablet Take 1 tablet by mouth once daily. cholecalciferol, vitamin D3, (VITAMIN D3 ORAL) Take by mouth. Biotin 2,500 mcg cap Take 5,000 mcg by mouth once daily. fexofenadine (DARIO) 180 mg ORAL tablet Take 1 tablet by mouth once daily. aspirin(ECOTRIN LOW STRENGTH 81 MG TAB) Take one(1) tablet daily. MULTI-VITAMIN TAB Take one(1) tablet daily. CALCIUM + D 600 MG-200 UNIT TAB Take one(1) tablet daily. Clobetasol (CLOBEX) 0.05 % TOPICAL Cameron Apply 1 application to affected area once daily as needed. No current facility-administered medications on file prior to visit. Social History Social History Tobacco Use Smoking status: Never Smokeless tobacco: Never Vaping Use Vaping Use: Never used Substance Use Topics Alcohol use: Yes Comment: rarely, maybe 3 glasses of wine a year Drug use: No Review of Symptoms REVIEW OF SYSTEMS SEE HPI EXAM: BP 134/86 Pulse 74 Resp 14 Wt 79.8 kg (176 lb) BMI 31.18 kg/m General Appearance: Well appearing, alert, in no acute distress, well-hydrated, well nourished.. Skin: Skin color, texture, turgor normal, no suspicious rashes or lesions. Lungs: Lungs clear to auscultation. No wheezing, rhonchi, rales.. Heart: RRR without murmur, gallop, or rubs. No ectopy. Abdomen: Normal abdominal exam, Abdomen soft, non-tender. Bowel sounds normal. No masses, organomegaly Extremities: No deformities, edema, skin discoloration, clubbing or cyanosis. Good capillary refill. . Peripheral Pulses: Normal. Neurologic: Gait normal. Reflexes normal and symmetric. Sensation grossly intact.. Health Maintenance List INFLUENZA(1) due on 11/12/2022 ANNUAL PCP TEAM CHRONIC DISEASE VISIT due on 03/19/2023 BP CONTROLLED (<130/80) due on 03/19/2023 DIABETES SCREEN due on 09/10/2025 COLORECTAL CANCER SCREENING due on 09/08/2026 LIPID SCREEN due on 09/11/2027 DTAP,TDAP,TD(7 - Td or Tdap) due on 10/11/2027 BONE DENSITY Completed ADVANCE DIRECTIVE DISCUSSION Completed DEPRESSION ASSESSMENT Completed HEPATITIS C SCREENING Completed SHINGRIX VACCINE Completed COVID-19 VACCINE Completed PNEUMOCOCCAL: 65+ Completed Component Latest Ref Rng & Units 09/10/2022 WBC 3.70 - 11.00 k/uL 5.56 RBC 3.90 - 5.20 m/uL 4.19 Hemoglobin 11.5 - 15.5 g/dL 12.6 Hematocrit 36.0 - 46.0 % 39.9 MCV 80.0 - 100.0 fL 95.2 MCH 26.0 - 34.0 pg 30.1 MCHC 30.5 - 36.0 g/dL 31.6 RDW-CV 11.5 - 15.0 % 13.2 Platelet Count 150 - 400 k/uL 257 MPV 9.0 - 12.7 fL 10.1 Neut% % 44.7 Abs Neut (ANC) 1.45 - 7.50 k/uL 2.49 Lymph% % 44.6 Abs Lymph 1.00 - 4.00 k/uL 2.48 Deuel% % 6.7 Abs Deuel <0.87 k/uL 0.37 Eosin% % 2.9 Abs Eosin <0.46 k/uL 0.16 Baso% % 0.9 Abs Baso <0.11 k/uL 0.05 Immature Gran % % 0.2 IMMATURE GRANS (ABS) <0.10 k/uL <0.03 NRBC /100 WBC 0.0 Absolute nRBC <0.01 k/uL <0.01 DTYPE Auto Protein, Total 6.3 - 8.0 g/dL 6.5 Albumin 3.9 - 4.9 g/dL 4.1 Calcium 8.5 - 10.2 mg/dL 9.8 Bilirubin, Total 0.2 - 1.3 mg/dL 0.3 Alkaline Phosphatase 34 - 123 U/L 83 AST 13 - 35 U/L 23 ALT 7 - 38 U/L 20 Glucose 74 - 99 mg/dL 92 BUN 7 - 21 mg/dL 13 Creatinine 0.58 - 0.96 mg/dL 0.60 Sodium 136 - 144 mmol/L 139 Potassium 3.7 - 5.1 mmol/L 4.4 Chloride 97 - 105 mmol/L 103 CO2 22 - 30 mmol/L 25 Anion Gap 9 - 18 mmol/L 11 eGFR >=60 mL/min/1.73m 94 Color Yellow Yellow Clarity Clear Clear Glucose, Urine Trace, Negative Negative Bilirubin, Urine Negative Negative Ketones, Urine Trace, Negative Negative Specific Vance, Ur 1.005 - 1.030 1.017 Hemoglobin/Blood,Ur Negative, Trace Negative pH, Urine 5.0 - 8.0 7.0 Protein, Urine Trace, Negative Negative Urobilinogen Negative Negative Nitrites Negative Negative Leukest Negative, 25 Ariadna/uL Negative WBC, Urine 0-5 /HPF 0-5 /HPF RBC, Urine 0-3 /HPF 3-5 /HPF (A) Epithelial Cells /HPF Few Total Cholesterol, Nonfasting <200 mg/dL 132 Triglycerides, Nonfasting <150 mg/dL 100 HDL Cholesterol, Nonfasting >39 mg/dL 58 LDL Cholesterol, Nonfasting <100 mg/dL 54 Non HDL Cholesterol, Nonfasting <130 mg/dL 74 VLDL Cholesterol, Nonfasting <30 mg/dL 20 Total Chol/HDL Ratio, Nonfasting <5.10 mg/dL 2.28 LDL/HDL Ratio, Nonfasting <2.54 mg/dL 0.93 Hemoglobin A1C 4.3 - 5.6 % 6.0 (H) Estimated Average Glucose mg/dL 126 ASSESSMENT/PLAN: 1. Essential hypertension, benign - ICD9: 401.1, ICD10: I10 (primary diagnosis) - Controlled - Continue current medications - Recommend home blood pressure monitoring, to bring results to next visit - Encouraged sodium restriction, DASH or Mediterranean diet - Recommend regular aerobic exercise - Discussed need for and benefit of weight loss. BMI 31.18 kg/(m^2) 2. Medicare annual wellness visit, subsequent - ICD9: V70.0, ICD10: Z00.00 - Counseled on healthy diet and regular exercise - Calcium intake with supplements or by diet of 1000 mg/day for under 50, 0938-4439 mg/day for 50+ 3. Mixed hyperlipidemia - ICD9: 272.2, ICD10: E78.2 - Controlled - Continue current medications - Counseled on healthy diet and regular exercise 4. Bladder prolapse, female, acquired - ICD9: 618.01, ICD10: N81.10 -Scheduled for bladder prolapse repair September 30 Kandy Holder APRN.CNP documented in this encounter [facility] 09-07-2022 Miscellaneous Notes Formattin g of this note is different from the original. Patient has been identified by name and date of : Yes Patient phones for refill(s): Requested Prescriptions Pending Prescriptions Disp Refills lisinopril (ZESTRIL) 40 mg tablet 90 tablet 1 Sig: Take 1 tablet by mouth once daily. Date of last office visit in primary care: JOSÉ LUIS 03/19/22 NOV scheduled for 09/16/22 Last 2 Encounter Wt Readings: Date: Wt: 07/23/2022 80.7 kg (178 lb) 05/16/2022 80.3 kg (177 lb) Please advise. Thank you. HAYDEN Hathaway documented in this encounter [facility] 08-04-2022 Note HNO ID: [id number] Author: Parisa Powell MA Service: ? Author Type: Asp Net C Developer Type: Progress Notes Filed: 08/05/2022 9:35 PM Note Text: Scan on 08/02/2022 3:45 PM by External Provider, PA-C: Mammography Parisa Powell MA [facility] 08-04-2022 Note HNO ID: [id number] Author: Parisa Powell MA Service: ? Author Type: Asp Net C Developer Type: Progress Notes Filed: 08/05/2022 9:35 PM Note Text: Scan on 07/30/2022 8:28 AM by External Provider, PA-C: Consultation - PT/OT/Speech Parisa Powell MA [facility] 07-23-2022 Note HNO ID: [id number] Author: Kayla Powell APRN.CNP Service: ? Author Type: Nurse Practitioner Type: Progress Notes Filed: 07/23/2022 8:19 AM Note Text: CC: Patient presents with: Cough: Head and chest congestion x1 week HPI: Sandhya Finn is a 77 year old female who presents to the office with complaint of head congestion, cough, nonproductive, and sinus symptoms for a week. Symptoms are worsening Associated symptoms includes nasal congestion and facial pain/pressure. Denies fever, ear pain, nausea, vomiting , and diarrhea. Treatments tried include nothing so far. with no relief of symptoms. Sick contacts: unknown. History of asthma, frequent episodes of bronchitis, chronic bronchitis, bronchiectasis or COPD: No Smoker: No Seasonal/environmental allergies: No The ROS is otherwise negative. The patient's pmh, medications, allergies, and past visits are reviewed. PHYSICAL EXAM: BP 138/96 Pulse 101 Temp 36.4 ?C (97.5 ?F) Resp 20 Wt 80.7 kg (178 lb) SpO2 97% BMI 31.54 kg/m? General appearance: alert, cooperative, pleasant, in no acute distress Head: Normocephalic Eyes: EOM's intact, conjunctiva pink and moist, no icterus, sclera white, non-injected Ears: Right ear: External ear/canal- Normal, TM - clear with good landmarks. Left ear: External ear/canal- Normal, TM - clear with good landmarks Oropharynx:moist without lesions, No erythema, exudates or tonsillar hypertrophy. Heart: Negative. RRR without obvious murmur, gallop, or rubs. No ectopy. 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 Pain in joint RIGHT HIP Papanicolaou smear of cervix with atypical squamous cells of undetermined significance (ASC-US) 1992; 1993 Psoriasis 07/12/2011 Restless legs syndrome (RLS) 04/22/2014 Seborrheic dermatitis of scalp 05/26/2010 Symptomatic menopausal or female climacteric states PAST SURGICAL HISTORY Procedure Laterality Date CAUTERY CERVIX CRYOCAUTERY INITIAL/REPEAT 1993 [place]aps since [place]; RICHARD/BSO 1994 COLONOSCOPY FLX DX W/COLLJ SPEC WHEN PFRMD 04/27/2001 Colonoscopy-repeat in -2011 COLONOSCOPY FLX DX W/COLLJ SPEC WHEN PFRMD 04/30/2011 EXCISION PILONIDAL CYST/SINUS SIMPLE Excision pilonidal cyst LIG/TRNSXJ FLP TUBE ABDL/VAG APPR UNI/BI Tubal ligation LUMBAR OR CAUDAL EPIDURAL STEROID INJECTION 02/23/2017 PAST SURGICAL HISTORY OF 05/26/2012 rotor cuff surgery (R) Dr Beaulieu PAST SURGICAL HISTORY OF Right 02/19/2020 reverse right shoulder replacement. REM LESION TRUNK,ARM, LEG <0.5 CM 03/01/2012 Exc. left lateral malleous skin lesion REM LESION TRUNK,ARM,LEG 0.6 -1.0CM 07/26/2007 Exc. right medial thigh skin lesion ROTATOR CUFF REPAIR 10/15/2015 SALPINGO-OOPHORECTOMY COMPL/PRTL UNI/BI SPX Salpingo-oophorectomy Bilateral SHX TOTAL SHOULDER REVERSE 05/13/2021 TOTAL ABDOMINAL HYSTERECT W/WO RMVL TUBE OVARY 1994 Hysterectomy, RICHARD Fibroids and bleeding ALLERGIES Lipitor [Atorvastatin Calcium], Pravachol [Pravastatin Sodium], and Sulfa (Sulfonamide Antibiotics) MEDICATIONS doxycycline monohydrate 100 mg tablet Take 1 tablet by mouth twice daily for 7 days. lisinopril (ZESTRIL, PRINIVIL) 40 mg tablet Take 1 tablet by mouth once daily. rosuvastatin (CRESTOR) 20 mg tablet Take 1 tablet by mouth once daily. cholecalciferol, vitamin D3, (VITAMIN D3 ORAL) Take by mouth. Biotin 2,500 mcg cap Take 5,000 mcg by mouth once daily. fexofenadine (DARIO) 180 mg ORAL tablet Take 1 tablet by mouth once daily. Clobetasol (CLOBEX) 0.05 % TOPICAL Cameron Apply 1 application to affected area once daily as needed. aspirin(ECOTRIN LOW STRENGTH 81 MG TAB) Take one(1) tablet daily. MULTI-VITAMIN TAB Take one(1) tablet daily. CALCIUM + D 600 MG-200 UNIT TAB Take one(1) tablet daily. FAMILY HISTORY Problem Relation Age of Onset Hypertension Mother pulmonary embolus Kidney Disease Mother other (Heart problem) Mother CA 10/11/2012 Hypertension Father Diabetes Sister Diabetes Paternal Grandmother Colon Cancer Maternal Aunt Breast Cancer Paternal Aunt Diabetes Paternal Aunt Diabetes Paternal Uncle Social History Tobacco Use Smoking status: Never Smokeless tobacco: Never Vaping Use Vaping Use: Never used Substance Use Topics Alc (more content not included)... [facility] 07-23-2022 History of Presen t illness Narrative CC: Patient presents with: Cough: Head and chest congestion x1 week HPI: Sandhya Finn is a 77 year old female who presents to the office with complaint of head congestion, cough, nonproductive, and sinus symptoms for a week. Symptoms are worsening Associated symptoms includes nasal congestion and facial pain/pressure. Denies fever, ear pain, nausea, vomiting , and diarrhea. Treatments tried include nothing so far. with no relief of symptoms. Sick contacts: unknown. History of asthma, frequent episodes of bronchitis, chronic bronchitis, bronchiectasis or COPD: No Smoker: No Seasonal/environmental allergies: No The ROS is otherwise negative. The patient's pmh, medications, allergies, and past visits are reviewed. PHYSICAL EXAM: BP 138/96 Pulse 101 Temp 36.4 C (97.5 F) Resp 20 Wt 80.7 kg (178 lb) SpO2 97% BMI 31.54 kg/m General appearance: alert, cooperative, pleasant, in no acute distress Head: Normocephalic Eyes: EOM's intact, conjunctiva pink and moist, no icterus, sclera white, non-injected Ears: Right ear: External ear/canal- Normal, TM - clear with good landmarks. Left ear: External ear/canal- Normal, TM - clear with good landmarks Oropharynx:moist without lesions, No erythema, exudates or tonsillar hypertrophy. Heart: Negative. RRR without obvious murmur, gallop, or rubs. No ectopy. 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 Pain in joint RIGHT HIP Papanicolaou smear of cervix with atypical squamous cells of undetermined significance (ASC-US) 1992; 1993 Psoriasis 07/12/2011 Restless legs syndrome (RLS) 04/22/2014 Seborrheic dermatitis of scalp 05/26/2010 Symptomatic menopausal or female climacteric states PAST SURGICAL HISTORY Procedure Laterality Date CAUTERY CERVIX CRYOCAUTERY INITIAL/REPEAT 1993 Paps since ; RICHARD/BSO 1994 COLONOSCOPY FLX DX W/COLLJ SPEC WHEN PFRMD 04/27/2001 Colonoscopy-repeat in COLONOSCOPY FLX DX W/COLLJ SPEC WHEN PFRMD 04/30/2011 EXCISION PILONIDAL CYST/SINUS SIMPLE Excision pilonidal cyst LIG/TRNSXJ FLP TUBE ABDL/VAG APPR UNI/BI Tubal ligation LUMBAR OR CAUDAL EPIDURAL STEROID INJECTION 02/23/2017 PAST SURGICAL HISTORY OF 05/26/2012 rotor cuff surgery (R) Dr Beaulieu PAST SURGICAL HISTORY OF Right 02/19/2020 reverse right shoulder replacement. REM LESION TRUNK,ARM, LEG <0.5 CM 03/01/2012 Exc. left lateral malleous skin lesion REM LESION TRUNK,ARM,LEG 0.6 -1.0CM 07/26/2007 Exc. right medial thigh skin lesion ROTATOR CUFF REPAIR 10/15/2015 SALPINGO-OOPHORECTOMY COMPL/PRTL UNI/BI SPX Salpingo-oophorectomy Bilateral SHX TOTAL SHOULDER REVERSE 05/13/2021 TOTAL ABDOMINAL HYSTERECT W/WO RMVL TUBE OVARY 1994 Hysterectomy, RICHARD Fibroids and bleeding ALLERGIES Lipitor [Atorvastatin Calcium], Pravachol [Pravastatin Sodium], and Sulfa (Sulfonamide Antibiotics) MEDICATIONS doxycycline monohydrate 100 mg tablet Take 1 tablet by mouth twice daily for 7 days. lisinopril (ZESTRIL, PRINIVIL) 40 mg tablet Take 1 tablet by mouth once daily. rosuvastatin (CRESTOR) 20 mg tablet Take 1 tablet by mouth once daily. cholecalciferol, vitamin D3, (VITAMIN D3 ORAL) Take by mouth. Biotin 2,500 mcg cap Take 5,000 mcg by mouth once daily. fexofenadine (DARIO) 180 mg ORAL tablet Take 1 tablet by mouth once daily. Clobetasol (CLOBEX) 0.05 % TOPICAL Cameron Apply 1 application to affected area once daily as needed. aspirin(ECOTRIN LOW STRENGTH 81 MG TAB) Take one(1) tablet daily. MULTI-VITAMIN TAB Take one(1) tablet daily. CALCIUM + D 600 MG-200 UNIT TAB Take one(1) tablet daily. FAMILY HISTORY Problem Relation Age of Onset Hypertension Mother pulmonary embolus Kidney Disease Mother other (Heart problem) Mother CA 10/11/2012 Hypertension Father Diabetes Sister Diabetes Paternal Grandmother Colon Cancer Maternal Aunt Breast Cancer Paternal Aunt Diabetes Paternal Aunt Diabetes Paternal Uncle Social History Tobacco Use Smoking status: Never Smokeless tobacco: Never Vaping Use Vaping Use: Never used Substance Use Topics Alcohol use: Yes Comment: rarely, maybe 3 glasses of wine a year Drug use: No ASSESSMENT/PLAN: 1. Rhinosinusitis - ICD9: 473.9, ICD10: J31.0, J32.9 - DOXYCYCLINE MONOHYDRATE 100 MG TABLET Prescription instructions reviewed with patient as applicable. Potential red flag symptoms discussed with the patient. Reviewed appropriate action plan to take if red flag symptoms occur. Patient agreeable to treatment plan. Kayla Powell APRN.CNP documented in this encounter [facility] 06-02-2022 Note HNO ID: [id number] Author: Parisa Powell MA Service: ? Author Type: Asp Net C Developer Type: Progress Notes Filed: 06/02/2022 12:48 PM Note Text: Scan on 06/01/2022 5:31 PM by External Provider: Consultation - PT/OT/Speech Parisa Powell MA [facility] 05-16-2022 Note HNO ID: [id number] Author: Kayla Powell APRN.CNP Service: ? Author Type: Nurse Practitioner Type: Progress Notes Filed: 05/16/2022 8:45 AM Note Text: CC: Patient presents with: Covid Positive: COVId positive-wants medication HPI: Sandhya Finn is a 77 year old female who presents to the office with complaint of head congestion and cough, nonproductive for a few days. Symptoms are staying the same. Associated symptoms includes nasal congestion. Denies fever, nausea, vomiting , and diarrhea. Treatments tried include nothing so far. with no relief of symptoms. Sick contacts: unknown. History of asthma, frequent episodes of bronchitis, chronic bronchitis, bronchiectasis or COPD: No Smoker: No Seasonal/environmental allergies: No The ROS is otherwise negative. The patient's pmh, medications, allergies, and past visits are reviewed. PHYSICAL EXAM: BP 132/82 Pulse 76 Temp 36.3 ?C (97.4 ?F) (Tympanic) Resp 18 Wt 80.3 kg (177 lb) SpO2 98% BMI 31.36 kg/m? General appearance: alert, cooperative, pleasant, in no acute distress Head: Normocephalic Eyes: EOM's intact, conjunctiva pink and moist, no icterus, sclera white, non-injected Ears: Right ear: External ear/canal- Normal, TM - clear with good landmarks. Left ear: External ear/canal- Normal, TM - clear with good landmarks Oropharynx:moist without lesions, No erythema, exudates or tonsillar hypertrophy. Heart: Negative. RRR without obvious murmur, gallop, or rubs. No ectopy. 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 Pain in joint RIGHT HIP Papanicolaou smear of cervix with atypical squamous cells of undetermined significance (ASC-US) 1992; 1993 Psoriasis 07/12/2011 Restless legs syndrome (RLS) 04/22/2014 Seborrheic dermatitis of scalp 05/26/2010 Symptomatic menopausal or female climacteric states PAST SURGICAL HISTORY Procedure Laterality Date CAUTERY CERVIX CRYOCAUTERY INITIAL/REPEAT 1993 [place] since [place]; RICHARD/BSO 1994 COLONOSCOPY FLX DX W/COLLJ SPEC WHEN PFRMD 04/27/2001 Colonoscopy-repeat in COLONOSCOPY FLX DX W/COLLJ SPEC WHEN PFRMD 04/30/2011 EXCISION PILONIDAL CYST/SINUS SIMPLE Excision pilonidal cyst LIG/TRNSXJ FLP TUBE ABDL/VAG APPR UNI/BI Tubal ligation LUMBAR OR CAUDAL EPIDURAL STEROID INJECTION 02/23/2017 PAST SURGICAL HISTORY OF 05/26/2012 rotor cuff surgery (R) Dr Beaulieu PAST SURGICAL HISTORY OF Right 02/19/2020 reverse right shoulder replacement. REM LESION TRUNK,ARM, LEG <0.5 CM 03/01/2012 Exc. left lateral malleous skin lesion REM LESION TRUNK,ARM,LEG 0.6 -1.0CM 07/26/2007 Exc. right medial thigh skin lesion ROTATOR CUFF REPAIR 10/15/2015 SALPINGO-OOPHORECTOMY COMPL/PRTL UNI/BI SPX Salpingo-oophorectomy Bilateral SHX TOTAL SHOULDER REVERSE 05/13/2021 TOTAL ABDOMINAL HYSTERECT W/WO RMVL TUBE OVARY 1994 Hysterectomy, RICHARD Fibroids and bleeding ALLERGIES Lipitor [Atorvastatin Calcium], Pravachol [Pravastatin Sodium], and Sulfa (Sulfonamide Antibiotics) MEDICATIONS lisinopril (ZESTRIL, PRINIVIL) 40 mg tablet Take 1 tablet by mouth once daily. rosuvastatin (CRESTOR) 20 mg tablet Take 1 tablet by mouth once daily. cholecalciferol, vitamin D3, (VITAMIN D3 ORAL) Take by mouth. Biotin 2,500 mcg cap Take 5,000 mcg by mouth once daily. fexofenadine (DARIO) 180 mg ORAL tablet Take 1 tablet by mouth once daily. Clobetasol (CLOBEX) 0.05 % TOPICAL Cameron Apply 1 application to affected area once daily as needed. aspirin(ECOTRIN LOW STRENGTH 81 MG TAB) Take one(1) tablet daily. MULTI-VITAMIN TAB Take one(1) tablet daily. CALCIUM + D 600 MG-200 UNIT TAB Take one(1) tablet daily. molnupiravir 200 mg capsule Take 4 capsules by mouth twice daily for 5 days. FAMILY HISTORY Problem Relation Age of Onset Hypertension Mother pulmonary embolus Kidney Disease Mother other (Heart problem) Mother CA 10/11/2012 Hypertension Father Diabetes Sister Diabetes Paternal Grandmother Colon Cancer Maternal Aunt Breast Cancer Paternal Aunt Diabetes Paternal Aunt Diabetes Paternal Uncle Social History Tobacco Use Smoking status: Never Smokeless tobacco: Never Vaping Use Vaping Use: Never used Substance Use Topics Alcohol use: Yes Comment: rarely, ma (more content not included)... [facility] 05-15-2022 Note HNO ID: [id number] Author: Kayla Powell APRN.HOUSE REPAIRER Service: ? Author Type: Nurse Practitioner Type: Progress Notes Filed: 05/15/2022 8:25 AM Note Text: CC: Patient presents with: Cough: Cough, ST, bodyaches, MONTANEZ, runny nose and head congestion x 2-3 days HPI: Sandhya Finn is a 77 year old female who presents to the office with complaint of head congestion, cough, nonproductive, sore throat, and rhinorrhea for a few days. Symptoms are staying the same. Associated symptoms includes headache and body aches. Denies sore throat, nausea, vomiting , and diarrhea. Treatments tried include nothing so far. with no relief of symptoms. Sick contacts: unknown. History of asthma, frequent episodes of bronchitis, chronic bronchitis, bronchiectasis or COPD: No Smoker: No Seasonal/environmental allergies: No The ROS is otherwise negative. The patient's pmh, medications, allergies, and past visits are reviewed. PHYSICAL EXAM: BP 152/96 Pulse 114 Temp 37.4 ?C (99.3 ?F) (Tympanic) Resp 18 Wt 80.3 kg (177 lb) SpO2 100% BMI 31.36 kg/m? General appearance: alert, cooperative, pleasant, in no acute distress Head: Normocephalic Eyes: EOM's intact, conjunctiva pink and moist, no icterus, sclera white, non-injected Ears: Right ear: External ear/canal- Normal, TM - clear with good landmarks. Left ear: External ear/canal- Normal, TM - clear with good landmarks Oropharynx:moist without lesions, No erythema, exudates or tonsillar hypertrophy. Heart: Negative. RRR without obvious murmur, gallop, or rubs. No ectopy. 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 Pain in joint RIGHT HIP Papanicolaou smear of cervix with atypical squamous cells of undetermined significance (ASC-US) 1992; 1993 Psoriasis 07/12/2011 Restless legs syndrome (RLS) 04/22/2014 Seborrheic dermatitis of scalp 05/26/2010 Symptomatic menopausal or female climacteric states PAST SURGICAL HISTORY Procedure Laterality Date CAUTERY CERVIX CRYOCAUTERY INITIAL/REPEAT 1993 [place]aps since [place]; RICHARD/BSO 1994 COLONOSCOPY FLX DX W/COLLJ SPEC WHEN PFRMD 04/27/2001 Colonoscopy-repeat in -2011 COLONOSCOPY FLX DX W/COLLJ SPEC WHEN PFRMD 04/30/2011 EXCISION PILONIDAL CYST/SINUS SIMPLE Excision pilonidal cyst LIG/TRNSXJ FLP TUBE ABDL/VAG APPR UNI/BI Tubal ligation LUMBAR OR CAUDAL EPIDURAL STEROID INJECTION 02/23/2017 PAST SURGICAL HISTORY OF 05/26/2012 rotor cuff surgery (R) Dr Beaulieu PAST SURGICAL HISTORY OF Right 02/19/2020 reverse right shoulder replacement. REM LESION TRUNK,ARM, LEG <0.5 CM 03/01/2012 Exc. left lateral malleous skin lesion REM LESION TRUNK,ARM,LEG 0.6 -1.0CM 07/26/2007 Exc. right medial thigh skin lesion ROTATOR CUFF REPAIR 10/15/2015 SALPINGO-OOPHORECTOMY COMPL/PRTL UNI/BI SPX Salpingo-oophorectomy Bilateral SHX TOTAL SHOULDER REVERSE 05/13/2021 TOTAL ABDOMINAL HYSTERECT W/WO RMVL TUBE OVARY 1994 Hysterectomy, RICHARD Fibroids and bleeding ALLERGIES Lipitor [Atorvastatin Calcium], Pravachol [Pravastatin Sodium], and Sulfa (Sulfonamide Antibiotics) MEDICATIONS lisinopril (ZESTRIL, PRINIVIL) 40 mg tablet Take 1 tablet by mouth once daily. rosuvastatin (CRESTOR) 20 mg tablet Take 1 tablet by mouth once daily. cholecalciferol, vitamin D3, (VITAMIN D3 ORAL) Take by mouth. Biotin 2,500 mcg cap Take 5,000 mcg by mouth once daily. fexofenadine (DARIO) 180 mg ORAL tablet Take 1 tablet by mouth once daily. Clobetasol (CLOBEX) 0.05 % TOPICAL Cameron Apply 1 application to affected area once daily as needed. aspirin(ECOTRIN LOW STRENGTH 81 MG TAB) Take one(1) tablet daily. MULTI-VITAMIN TAB Take one(1) tablet daily. CALCIUM + D 600 MG-200 UNIT TAB Take one(1) tablet daily. FAMILY HISTORY Problem Relation Age of Onset Hypertension Mother pulmonary embolus Kidney Disease Mother other (Heart problem) Mother CA 10/11/2012 Hypertension Father Diabetes Sister Diabetes Paternal Grandmother Colon Cancer Maternal Aunt Breast Cancer Paternal Aunt Diabetes Paternal Aunt Diabetes Paternal Uncle Social History Tobacco Use Smoking status: Never Smokeless tobacco: Never Vaping Use Vaping Use: Never used Substance Use Topics Alcohol use: Yes Comment: rarely, maybe 3 glass (more content not included)... [facility] 05-15-2022 Instructions Kayla Powell APRN.HOUSE REPAIRER - 05/15/2022 8:21 AM EST No diagnosis found. You have been diagnosed with an illness caused by a virus. Antibiotics do not cure viral infections. If given when not needed, antibiotics can be harmful. The treatments described below will help you feel better while your body's own defenses are fighting the virus. General Instructions: Drink extra water and juice. Use a cool mist vaporizer or saline nasal spray to relieve congestion. For Sore throats, use ice chips or sore throat spray; lozenges for older children and adults. Use medicines according to the package instructions or as directed by your healthcare provider. Stop the medication when the symptoms get better. No follow-ups on file. documented in this encounter [facility] 05-15-2022 History of Presen t illness Narrative CC: Patient presents with: Cough: Cough, ST, bodyaches, MONTANEZ, runny nose and head congestion x 2-3 days HPI: Sandhya Finn is a 77 year old female who presents to the office with complaint of head congestion, cough, nonproductive, sore throat, and rhinorrhea for a few days. Symptoms are staying the same. Associated symptoms includes headache and body aches. Denies sore throat, nausea, vomiting , and diarrhea. Treatments tried include nothing so far. with no relief of symptoms. Sick contacts: unknown. History of asthma, frequent episodes of bronchitis, chronic bronchitis, bronchiectasis or COPD: No Smoker: No Seasonal/environmental allergies: No The ROS is otherwise negative. The patient's pmh, medications, allergies, and past visits are reviewed. PHYSICAL EXAM: BP 152/96 Pulse 114 Temp 37.4 C (99.3 F) (Tympanic) Resp 18 Wt 80.3 kg (177 lb) SpO2 100% BMI 31.36 kg/m General appearance: alert, cooperative, pleasant, in no acute distress Head: Normocephalic Eyes: EOM's intact, conjunctiva pink and moist, no icterus, sclera white, non-injected Ears: Right ear: External ear/canal- Normal, TM - clear with good landmarks. Left ear: External ear/canal- Normal, TM - clear with good landmarks Oropharynx:moist without lesions, No erythema, exudates or tonsillar hypertrophy. Heart: Negative. RRR without obvious murmur, gallop, or rubs. No ectopy. 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 Pain in joint RIGHT HIP Papanicolaou smear of cervix with atypical squamous cells of undetermined significance (ASC-US) 1992; 1993 Psoriasis 07/12/2011 Restless legs syndrome (RLS) 04/22/2014 Seborrheic dermatitis of scalp 05/26/2010 Symptomatic menopausal or female climacteric states PAST SURGICAL HISTORY Procedure Laterality Date CAUTERY CERVIX CRYOCAUTERY INITIAL/REPEAT 1993 [place]aps since [place]; RICHARD/BSO 1994 COLONOSCOPY FLX DX W/COLLJ SPEC WHEN PFRMD 04/27/2001 Colonoscopy-repeat in COLONOSCOPY FLX DX W/COLLJ SPEC WHEN PFRMD 04/30/2011 EXCISION PILONIDAL CYST/SINUS SIMPLE Excision pilonidal cyst LIG/TRNSXJ FLP TUBE ABDL/VAG APPR UNI/BI Tubal ligation LUMBAR OR CAUDAL EPIDURAL STEROID INJECTION 02/23/2017 PAST SURGICAL HISTORY OF 05/26/2012 rotor cuff surgery (R) Dr Beaulieu PAST SURGICAL HISTORY OF Right 02/19/2020 reverse right shoulder replacement. REM LESION TRUNK,ARM, LEG <0.5 CM 03/01/2012 Exc. left lateral malleous skin lesion REM LESION TRUNK,ARM,LEG 0.6 -1.0CM 07/26/2007 Exc. right medial thigh skin lesion ROTATOR CUFF REPAIR 10/15/2015 SALPINGO-OOPHORECTOMY COMPL/PRTL UNI/BI SPX Salpingo-oophorectomy Bilateral SHX TOTAL SHOULDER REVERSE 05/13/2021 TOTAL ABDOMINAL HYSTERECT W/WO RMVL TUBE OVARY 1994 Hysterectomy, RICHARD Fibroids and bleeding ALLERGIES Lipitor [Atorvastatin Calcium], Pravachol [Pravastatin Sodium], and Sulfa (Sulfonamide Antibiotics) MEDICATIONS lisinopril (ZESTRIL, PRINIVIL) 40 mg tablet Take 1 tablet by mouth once daily. rosuvastatin (CRESTOR) 20 mg tablet Take 1 tablet by mouth once daily. cholecalciferol, vitamin D3, (VITAMIN D3 ORAL) Take by mouth. Biotin 2,500 mcg cap Take 5,000 mcg by mouth once daily. fexofenadine (DARIO) 180 mg ORAL tablet Take 1 tablet by mouth once daily. Clobetasol (CLOBEX) 0.05 % TOPICAL Cameron Apply 1 application to affected area once daily as needed. aspirin(ECOTRIN LOW STRENGTH 81 MG TAB) Take one(1) tablet daily. MULTI-VITAMIN TAB Take one(1) tablet daily. CALCIUM + D 600 MG-200 UNIT TAB Take one(1) tablet daily. FAMILY HISTORY Problem Relation Age of Onset Hypertension Mother pulmonary embolus Kidney Disease Mother other (Heart problem) Mother CA 10/11/2012 Hypertension Father Diabetes Sister Diabetes Paternal Grandmother Colon Cancer Maternal Aunt Breast Cancer Paternal Aunt Diabetes Paternal Aunt Diabetes Paternal Uncle Social History Tobacco Use Smoking status: Never Smokeless tobacco: Never Vaping Use Vaping Use: Never used Substance Use Topics Alcohol use: Yes Comment: rarely, maybe 3 glasses of wine a year Drug use: No ASSESSMENT/PLAN: 1. URI, acute - ICD9: 465.9, ICD10: J06.9 - COVID WITH FLUA+B, ROUTINE OTC medication at this time. Potential red flag symptoms discussed with the patient. Reviewed appropriate action plan to take if red flag symptoms occur. Patient agreeable to treatment plan. Kayla Powell APRN.LUCIA documented in this encounter [facility] 04-26-2022 Note HNO ID: [id number] Author: Rodríguez Theodore MD Service: ? Author Type: Physician Type: Progress Notes Filed: 04/26/2022 1:32 PM Note Text: Requested Prescriptions Signed Prescriptions Disp Refills codeine-guaiFENesin (ROBITUSSIN AC) 10-100 mg/5 mL syrup 200 mL 0 Sig: Take 5-10 mL by mouth four times daily as needed for up to 7 days. May cause drowsiness. PDMP website checked and validated. All prescriptions have been APPROPRIATELY filled. No suspicious activity was identified. 04/26/2022 by Rodríguez Theodore MD [facility] 04-26-2022 History of Presen t illness Narrative Requested Prescriptions Signed Prescriptions Disp Refills codeine-guaiFENesin (ROBITUSSIN AC) 10-100 mg/5 mL syrup 200 mL 0 Sig: Take 5-10 mL by mouth four times daily as needed for up to 7 days. May cause drowsiness. PDMP website checked and validated. All prescriptions have been APPROPRIATELY filled. No suspicious activity was identified. 04/26/2022 by Rodríguez Theodore MD documented in this encounter [facility] 03-22-2022 Miscellaneous Notes Formattin g of this note is different from the original. The following approved medication requests have been transmitted electronically. Requested Prescriptions Signed Prescriptions Disp Refills lisinopril (ZESTRIL, PRINIVIL) 40 mg tablet 90 tablet 1 Sig: Take 1 tablet by mouth once daily. Authorizing Provider: RODRÍGUEZ THEODORE MD Contacted patient and gave Dr. Theodore's recommendations. Patient indicated that she normally uses [facility] but was told [facility] had the quinapril turns out no that it is a recall. Patient uses [facility]. Parisa Powell MA Let patient know we have to change her quinapril to lisinopril which I prefer better and will do the same thing. This is due to a recall and being on back order. This message says [facility] but it looks like she gets meds at [facility]. Please verify? Pharmacist from [facility] calls and states that Quinapril is on recall and is currently on backorder. Patient does not have any medication left. Pharmacist asking if provider can send in prescription for a different medication? Please review and advise, Tiffany Palm RN documented in this encounter [facility] 03-19-2022 Instructions Rodríguez Theodore MD - 03/19/2022 10:14 AM EST Please get labs and urine test done on or after 09/03/2022 prior to your next visit. Please bring in copies of living will and durable power of commercial litigation attorney for health care. documented in this encounter [facility] 03-19-2022 Nurse Note True BP - 132/77 65 pulse 135/78 134/77 131/78 126/76 135/74 documented in this encounter [facility] 03-19-2022 History of Presen t illness Narrative Chief Complaint Patient presents with: F/U 6 months HPI Sandhya Finn is a 77 year old female who presents here today for 6 month follow up. Patient with hx of HTN, HLP, elevated glucose, RLS, adrenal nodule, Lung nodul, Psoriasis, hx of melanoma, and those as below. Patient has been doing well. No new issues or concerns. Past medical history, appointments, medications, allergies reviewed. 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 Pain in joint RIGHT HIP Papanicolaou smear of cervix with atypical squamous cells of undetermined significance (ASC-US) 1992; 1993 Psoriasis 07/12/2011 Restless legs syndrome (RLS) 04/22/2014 Seborrheic dermatitis of scalp 05/26/2010 Symptomatic menopausal or female climacteric states Previous Surgical History PAST SURGICAL HISTORY Procedure Laterality Date CAUTERY CERVIX CRYOCAUTERY INITIAL/REPEAT 1993 [place]aps since [place]; RICHARD/BSO 1994 COLONOSCOPY FLX DX W/COLLJ SPEC WHEN PFRMD 04/27/2001 Colonoscopy-repeat in COLONOSCOPY FLX DX W/COLLJ SPEC WHEN PFRMD 04/30/2011 EXCISION PILONIDAL CYST/SINUS SIMPLE Excision pilonidal cyst LIG/TRNSXJ FLP TUBE ABDL/VAG APPR UNI/BI Tubal ligation LUMBAR OR CAUDAL EPIDURAL STEROID INJECTION 02/23/2017 PAST SURGICAL HISTORY OF 05/26/2012 rotor cuff surgery (R) Dr Beaulieu PAST SURGICAL HISTORY OF Right 02/19/2020 reverse right shoulder replacement. REM LESION TRUNK,ARM, LEG <0.5 CM 03/01/2012 Exc. left lateral malleous skin lesion REM LESION TRUNK,ARM,LEG 0.6 -1.0CM 07/26/2007 Exc. right medial thigh skin lesion ROTATOR CUFF REPAIR 10/15/2015 SALPINGO-OOPHORECTOMY COMPL/PRTL UNI/BI SPX Salpingo-oophorectomy Bilateral SHX TOTAL SHOULDER REVERSE 05/13/2021 TOTAL ABDOMINAL HYSTERECT W/WO RMVL TUBE OVARY 1994 Hysterectomy, RICHARD Fibroids and bleeding Family History FAMILY HISTORY Problem Relation Age of Onset Hypertension Mother pulmonary embolus Kidney Disease Mother other (Heart problem) Mother CA 10/11/2012 Hypertension Father Diabetes Sister Diabetes Paternal Grandmother Colon Cancer Maternal Aunt Breast Cancer Paternal Aunt Diabetes Paternal Aunt Diabetes Paternal Uncle Patient Allergies ALLERGIES Allergen Reactions Lipitor [Atorvastat* Myalgia Pravachol [Pravasta* Intolerance muscle ache Sulfa (Sulfonamide * GI Upset Current Medications Current Outpatient Medications on File Prior to Visit Medication Sig rosuvastatin (CRESTOR) 20 mg tablet Take 1 tablet by mouth once daily. Quinapril HCl 40 mg tablet TAKE 1 TABLET BY MOUTH EVERY DAY cholecalciferol, vitamin D3, (VITAMIN D3 ORAL) Take by mouth. Biotin 2,500 mcg cap Take 5,000 mcg by mouth once daily. fexofenadine (DARIO) 180 mg ORAL tablet Take 1 tablet by mouth once daily. Clobetasol (CLOBEX) 0.05 % TOPICAL Cameron Apply 1 application to affected area once daily as needed. aspirin(ECOTRIN LOW STRENGTH 81 MG TAB) Take one(1) tablet daily. MULTI-VITAMIN TAB Take one(1) tablet daily. CALCIUM + D 600 MG-200 UNIT TAB Take one(1) tablet daily. No current facility-administered medications on file prior to visit. Social History Social History Tobacco Use Smoking status: Never Smokeless tobacco: Never Vaping Use Vaping Use: Never used Substance Use Topics Alcohol use: Yes Comment: rarely, maybe 3 glasses of wine a year Drug use: No Review of Symptoms REVIEW OF SYSTEMS GENERAL: No weight loss, malaise or fevers NECK: Negative for lumps, goiter, pain and significant neck swelling RESPIRATORY: Negative for cough, hemoptysis, wheezing, COPD, dyspnea or shortness of breath CARDIOVASCULAR: Negative for chest pain, leg swelling, hypertension, CHF or palpitations GI: No nausea, vomiting, or diarrhea and No heartburn or reflux symptoms NEURO: No history of headaches, syncope, paralysis, seizures or tremors Musc: no active issues with the RLS. EXAM: BP 132/77 Pulse 68 Wt 80.7 kg (178 lb) BMI 31.54 kg/m Last 5 Encounter Wt Readings: Date: Wt: 03/19/2022 80.7 kg (178 lb) 02/08/2022 80.7 kg (178 lb) 09/16/2021 79.4 kg (175 lb) 04/20/2021 81.6 kg (180 lb) 02/26/2021 81.6 kg (180 lb) General Appearance: Well appearing, alert, in no acute distress, well-hydrated, well nourished. and Obese. Neck: Supple, no adenopathy; thyroid symmetric, normal size, no bruits. Lungs: Lungs clear to auscultation. No wheezing, rhonchi, rales.. Heart: RRR without murmur, gallop, or rubs. No ectopy. Abdomen: Normal abdominal exam, Abdomen soft, non-tender. Bowel sounds normal. No masses, organomegaly. Extremities: No deformities, edema, skin discoloration,Good capillary refill. . Peripheral Pulses: Normal. Health Maintenance List BP CONTROLLED (<130/80) due on 08/26/2021 ADVANCE DIRECTIVE DISCUSSION due on 03/14/2022 DEPRESSION ASSESSMENT Never done ANNUAL PCP TEAM CHRONIC DISEASE VISIT due on 09/16/2022 DIABETES SCREEN due on 03/11/2025 COLORECTAL CANCER SCREENING due on 09/08/2026 LIPID SCREEN due on 03/11/2027 DTAP,TDAP,TD(7 - Td or Tdap) due on 10/11/2027 BONE DENSITY Completed INFLUENZA Completed HEPATITIS C SCREENING Completed SHINGRIX VACCINE Completed COVID-19 VACCINE Completed PNEUMOCOCCAL: 65+ Completed Data reviewed Component Latest Ref Rng & Units 09/04/2021 03/11/2022 WBC 3.70 - 11.00 k/uL 6.13 RBC 3.90 - 5.20 m/uL 4.32 Hemoglobin 11.5 - 15.5 g/dL 12.6 Hematocrit 36.0 - 46.0 % 40.2 MCV 80.0 - 100.0 fL 93.1 MCH 26.0 - 34.0 pg 29.2 MCHC 30.5 - 36.0 g/dL 31.3 RDW-CV 11.5 - 15.0 % 13.7 Platelet Count 150 - 400 k/uL 290 MPV 9.0 - 12.7 fL 10.4 Neut% % 47.8 Abs Neut (ANC) 1.45 - 7.50 k/uL 2.93 Lymph% % 42.3 Abs Lymph 1.00 - 4.00 k/uL 2.59 Deuel% % 7.5 Abs Deuel <0.87 k/uL 0.46 Eosin% % 1.6 Abs Eosin <0.46 k/uL 0.10 Baso% % 0.8 Abs Baso <0.11 k/uL 0.05 Immature Gran % % 0.0 IMMATURE GRANS (ABS) <0.10 k/uL <0.03 NRBC /100 WBC 0.0 Absolute nRBC <0.01 k/uL <0.01 DTYPE Auto Protein, Total 6.3 - 8.0 g/dL 7.0 6.6 Albumin 3.9 - 4.9 g/dL 4.3 4.3 Calcium 8.5 - 10.2 mg/dL 10.3 (H) 10.0 Bilirubin, Total 0.2 - 1.3 mg/dL 0.2 0.3 Alkaline Phosphatase 34 - 123 U/L 94 94 AST 13 - 35 U/L 24 25 ALT 7 - 38 U/L 20 19 Glucose 74 - 99 mg/dL 71 (L) 81 BUN 7 - 21 mg/dL 14 14 Creatinine 0.58 - 0.96 mg/dL 0.68 0.63 Sodium 136 - 144 mmol/L 140 140 Potassium 3.7 - 5.1 mmol/L 4.5 4.3 Chloride 97 - 105 mmol/L 103 101 CO2 22 - 30 mmol/L 27 26 Anion Gap 9 - 18 mmol/L 10 13 eGFR >=60 mL/min/1.73m 92 93 Color Yellow Colorless Clarity Clear Clear Glucose, Urine Trace, Negative Negative Bilirubin, Urine Negative Negative Ketones, Urine Trace, Negative Negative Specific Vance, Ur 1.005 - 1.030 1.007 Hemoglobin/Blood,Ur Negative, Trace Negative pH, Urine 5.0 - 8.0 7.5 Protein, Urine Trace, Negative Negative Urobilinogen Negative Negative Nitrites Negative Negative Leukest Negative, 25 Ariadna/mL Negative WBC, Urine 0-5 /HPF 0-5 /HPF RBC, Urine 0-3 /HPF 0-3 /HPF Epithelial Cells /HPF Few Total Cholesterol, Nonfasting <200 mg/dL 152 148 Triglycerides, Nonfasting <150 mg/dL 106 102 HDL Cholesterol, Nonfasting >39 mg/dL 59 61 LDL Cholesterol, Nonfasting <100 mg/dL 72 67 Non HDL Cholesterol, Nonfasting <130 mg/dL 93 87 VLDL Cholesterol, Nonfasting <30 mg/dL 21 20 Total Chol/HDL Ratio, Nonfasting <5.10 mg/dL 2.58 2.43 LDL/HDL Ratio, Nonfasting <2.54 mg/dL 1.22 1.10 Hemoglobin A1C 4.3 - 5.6 % 6.0 (H) 6.1 (H) Estimated Average Glucose mg/dL 126 128 A/P ASSESSMENT/PLAN: 1. Essential hypertension, benign - ICD9: 401.1, ICD10: I10 (primary diagnosis) - good control - Continue current medication(s) - Recommended regular aerobic exercise. - Recommend home blood pressure monitoring, to bring results in on next visit - Goal of BP <130/80 2. Impaired fasting glucose - ICD9: 790.21, ICD10: R73.01 - A1c slightly higher and patient to cont work on Life style changes. 3. Restless legs syndrome (RLS) - ICD9: 333.94, ICD10: G25.81 - no active issues 4. Melanoma of skin (HCC) - ICD9: 172.9, ICD10: C43.9 - management per Derm 5. Living will in place - ICD9: V49.89, ICD10: Z78.9 - patient to bring in copies. 6. Advance directive discussed with patient - ICD9: V65.49, ICD10: Z71.89 - as per #5 F/u 6 months check CMP, Lipid, UA ,CBC and A1c prior Rodríguez Theodore MD documented in this encounter [facility] 02-08-2022 History of Presen t illness Narrative CC: Patient presents with: Nasal Congestion: drainage,cough and sore throat x 10 days HPI: Sandhya Finn is a 77 year old female who presents to the office with complaint of head congestion, cough, nonproductive, sore throat, and sinus symptoms for 10 days. Symptoms are staying the same. Associated symptoms includes nasal congestion, facial pain/pressure, and headache. Denies fever, nausea, vomiting , and diarrhea. Treatments tried include Guaifenesin/Mucinex with minor relief of symptoms. Sick contacts: unknown. History of asthma, frequent episodes of bronchitis, chronic bronchitis, bronchiectasis or COPD: No Smoker: No Seasonal/environmental allergies: No The ROS is otherwise negative. The patient's pmh, medications, allergies, and past visits are reviewed. PHYSICAL EXAM: BP 136/80 Pulse 100 Temp 36.8 C (98.2 F) Resp 16 Wt 80.7 kg (178 lb) SpO2 96% BMI 31.54 kg/m General appearance: alert, cooperative, pleasant, in no acute distress Head: Normocephalic Eyes: EOM's intact, conjunctiva pink and moist, no icterus, sclera white, non-injected Ears: Right ear: External ear/canal- Normal, TM - clear with good landmarks. Left ear: External ear/canal- Normal, TM - clear with good landmarks Oropharynx:moist without lesions, No erythema, exudates or tonsillar hypertrophy. Heart: Negative. RRR without obvious murmur, gallop, or rubs. No ectopy. 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 Pain in joint RIGHT HIP Papanicolaou smear of cervix with atypical squamous cells of undetermined significance (ASC-US) 1992; 1993 Psoriasis 07/12/2011 Restless legs syndrome (RLS) 04/22/2014 Seborrheic dermatitis of scalp 05/26/2010 Symptomatic menopausal or female climacteric states PAST SURGICAL HISTORY Procedure Laterality Date CAUTERY CERVIX CRYOCAUTERY INITIAL/REPEAT 1993 [place]aps since [place]; RICHARD/BSO 1994 COLONOSCOPY FLX DX W/COLLJ SPEC WHEN PFRMD 04/27/2001 Colonoscopy-repeat in COLONOSCOPY FLX DX W/COLLJ SPEC WHEN PFRMD 04/30/2011 EXCISION PILONIDAL CYST/SINUS SIMPLE Excision pilonidal cyst LIG/TRNSXJ FLP TUBE ABDL/VAG APPR UNI/BI Tubal ligation LUMBAR OR CAUDAL EPIDURAL STEROID INJECTION 02/23/2017 PAST SURGICAL HISTORY OF 05/26/2012 rotor cuff surgery (R) Dr Beaulieu PAST SURGICAL HISTORY OF Right 02/19/2020 reverse right shoulder replacement. REM LESION TRUNK,ARM, LEG <0.5 CM 03/01/2012 Exc. left lateral malleous skin lesion REM LESION TRUNK,ARM,LEG 0.6 -1.0CM 07/26/2007 Exc. right medial thigh skin lesion ROTATOR CUFF REPAIR 10/15/2015 SALPINGO-OOPHORECTOMY COMPL/PRTL UNI/BI SPX Salpingo-oophorectomy Bilateral SHX TOTAL SHOULDER REVERSE 05/13/2021 TOTAL ABDOMINAL HYSTERECT W/WO RMVL TUBE OVARY 1994 Hysterectomy, RICHARD Fibroids and bleeding ALLERGIES Lipitor [Atorvastatin Calcium], Pravachol [Pravastatin Sodium], and Sulfa (Sulfonamide Antibiotics) MEDICATIONS rosuvastatin (CRESTOR) 20 mg tablet Take 1 tablet by mouth once daily. Quinapril HCl 40 mg tablet TAKE 1 TABLET BY MOUTH EVERY DAY cholecalciferol, vitamin D3, (VITAMIN D3 ORAL) Take by mouth. Biotin 2,500 mcg cap Take 5,000 mcg by mouth once daily. fexofenadine (DARIO) 180 mg ORAL tablet Take 1 tablet by mouth once daily. Clobetasol (CLOBEX) 0.05 % TOPICAL Cameron Apply 1 application to affected area once daily as needed. aspirin(ECOTRIN LOW STRENGTH 81 MG TAB) Take one(1) tablet daily. MULTI-VITAMIN TAB Take one(1) tablet daily. CALCIUM + D 600 MG-200 UNIT TAB Take one(1) tablet daily. doxycycline monohydrate 100 mg tablet Take 1 tablet by mouth twice daily for 7 days. predniSONE (DELTASONE) 20 mg tablet Take 1 tablet by mouth once daily for 5 days. FAMILY HISTORY Problem Relation Age of Onset Hypertension Mother pulmonary embolus Kidney Disease Mother other (Heart problem) Mother CA 10/11/2012 Hypertension Father Diabetes Sister Diabetes Paternal Grandmother Colon Cancer Maternal Aunt Breast Cancer Paternal Aunt Diabetes Paternal Aunt Diabetes Paternal Uncle Social History Tobacco Use Smoking status: Never Smokeless tobacco: Never Vaping Use Vaping Use: Never used Substance Use Topics Alcohol use: Yes Comment: rarely, maybe 3 glasses of wine a year Drug use: No ASSESSMENT/PLAN: 1. Rhinosinusitis - ICD9: 473.9, ICD10: J31.0, J32.9 Prescription instructions reviewed with patient as applicable. Potential red flag symptoms discussed with the patient. Reviewed appropriate action plan to take if red flag symptoms occur. Patient agreeable to treatment plan. Kayla Powell APRN.LUCIA documented in this encounter [facility] 01-11-2022 Miscellaneous Notes Formattin g of this note might be different from the original. Patient notified and voiced understanding. Parisa Powell MA Let patient know CT chest showed no changes inh lung nodules from a year ago. Would not repeat CT again in a patient without Hx of smoking. documented in this encounter [facility] 01-06-2022 Miscellaneous Notes Formattin g of this note might be different from the original. Pt notified of results via [employer]. Karlene Ling Ma Let patient know CT of adrenal gland shows a stable benign adrenal adenoma. No further imaging needed. documented in this encounter [facility] 01-06-2022 History of Presen t illness Narrative Radiology Service Progress Note PATIENT NAME: Sandhya Finn DATE OF SERVICE: January 06, 2022 TIME: 4:01 PM PATIENT IDENTITY VERIFICATION COMPLETED USING TWO (2) IDENTIFIERS: Name and Date of confirmed by patient verbally. FALL SCREENING: Has the patient had 2 falls in the last year or 1 fall with injury or currently using an Ambulatory Assistive Device (Walker, Cane, Wheelchair, Crutches, etc.)? No PATIENT GENDER DATA: Female. status: : No status: NO. PATIENT RELEVANT IMPLANT DATA REVIEWED: Yes RADIOLOGY DEPARTMENT: CT; Exam(s) Completed: Abdomen and Chest PERIPHERAL IV DATA: Not applicable SIGNED BY: RT Davin(R) January 06, 2022 4:01 PM documented in this encounter [facility] 11-30-2021 Miscellaneous Notes Formattin g of this note is different from the original. Patient has been identified by name and date of : Yes Requested Prescriptions Pending Prescriptions Disp Refills rosuvastatin (CRESTOR) 20 mg tablet 90 tablet 3 Sig: Take 1 tablet by mouth once daily. RX INSTRUCTIONS: Patient aware RX will be sent to pharmacy. No need to notify patient. Parisa Powell MA José Luis: 09/2021 Nov: 03/2022 Last refill: 08/2020 documented in this encounter [facility] 10-01-2021 Miscellaneous Notes Pt notified of same. Shanta Barbosa LPN ----- Message from Twyla Bwoman PA-C sent at 10/01/2021 10:26 AM EDT ----- Repeat urine is normal . 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 Pain in joint RIGHT HIP Papanicolaou smear of cervix with atypical squamous cells of undetermined significance (ASC-US) 1992; 1993 Psoriasis 07/12/2011 Restless legs syndrome (RLS) 04/22/2014 Seborrheic dermatitis of scalp 05/26/2010 Symptomatic menopausal or female climacteric states PAST SURGICAL HISTORY Procedure Laterality Date CAUTERY CERVIX CRYOCAUTERY INITIAL/REPEAT 1993 Paps since [place]; RICHARD/BSO 1994 COLONOSCOPY FLX DX W/COLLJ SPEC WHEN PFRMD 04/27/2001 Colonoscopy-repeat in -2011 COLONOSCOPY FLX DX W/COLLJ SPEC WHEN PFRMD 04/30/2011 EXCISION PILONIDAL CYST/SINUS SIMPLE Excision pilonidal cyst LIG/TRNSXJ FLP TUBE ABDL/VAG APPR UNI/BI Tubal ligation LUMBAR OR CAUDAL EPIDURAL STEROID INJECTION 02/23/2017 PAST SURGICAL HISTORY OF 05/26/2012 rotor cuff surgery (R) Dr Beaulieu PAST SURGICAL HISTORY OF Right 02/19/2020 reverse right shoulder replacement. REM LESION TRUNK,ARM, LEG <0.5 CM 03/01/2012 Exc. left lateral malleous skin lesion REM LESION TRUNK,ARM,LEG 0.6 -1.0CM 07/26/2007 Exc. right medial thigh skin lesion ROTATOR CUFF REPAIR 10/15/2015 SALPINGO-OOPHORECTOMY COMPL/PRTL UNI/BI SPX Salpingo-oophorectomy Bilateral TOTAL ABDOMINAL HYSTERECT W/WO RMVL TUBE OVARY 1995 Hysterectomy, RICHARD Fibroids and bleeding ALLERGIES: Lipitor [Atorvastatin Calcium], Pravachol [Pravastatin Sodium], and Sulfa (Sulfonamide Antibiotics) Medications reviewed: Yes FAMILY HISTORY Problem Relation Age of Onset Hypertension Mother pulmonary embolus Kidney Disease Mother other (Heart problem) Mother CA 10/11/2012 Hypertension Father Diabetes Sister Diabetes Paternal Grandmother Colon Cancer Maternal Aunt Breast Cancer Paternal Aunt Diabetes Paternal Aunt Diabetes Paternal Uncle SOCIAL HISTORY: Social History Tobacco Use Smoking status: Never Smoker Smokeless tobacco: Never Used Vaping Use Vaping Use: Never used Substance Use Topics Alcohol use: Yes Comment: rarely, maybe 3 glasses of wine a year Drug use: No Sandhya works out regularly 3-4 times per week with walking on treadmill, stationary bicycling and light weights. She watches her diet for sodium, low fat and low cholesterol most of the time. List of current specialists seen: Derm End of Live Planning discussed including patients advanced directive wishes: Yes I am willing to follow Sandhya's advanced directives. PHQ-2 / Depression screen She in the past two weeks denies having felt down, depressed, hopeless or with little interest or pleasure in doing things. Depression Screening 10/10/2017 05/22/2019 08/24/2020 09/16/2021 PHQ-2 Score 0 0 0 0 Depression screening tool completed and reviewed. Based on score and interview, patient is not at risk for depression. Screening tool discussed with patient, and I recommended no further intervention at this time. Functional Ability/Safety Screen 1. Was the patient's timed Up and Go test unsteady or longer than 30 seconds? No 2. Does the patient need help with the phone, transportation, shopping,preparing meals, housework, laundry, medications or managing money? No 3. Does your home have rugs in the hallway, lack of grab bars in the bathroom (Y), lack of handrails on the stairs or have poor lighting? No Hearing Evaluation: normal PHYSICAL EXAM BP 126/82 (BP Site: Left Arm, BP Position: Sitting, BP Cuff Size: Large Adult) Pulse 80 Temp 36.7 C (98.1 F) Resp 16 Ht 160 cm (5' 2.99 ) Wt 79.4 kg (175 lb) BMI 31.01 kg/m Alert and oriented X 3: YES Body mass index is 31.01 kg/m . Visual acuity: sees opto ASSESSMENT/PLAN: 76 year old female The following prevention plan was discussed during the office visit and provided to the patient: See below. Twyla Bowman PA-C Chief Complaint Patient presents with: Medicare Wellness Exam HPI Sandhya Finn is a 76 year old female who presents here today for extensive exam. Patient with hx of HTN, HLP, elevated glucose, RLS, adrenal nodule, Lung nodul, Psoriasis, hx of melanoma, and those as below. Patient denies any major concerns today. Has noted more allergy symptoms. Past medical history, appointments, medications, allergies reviewed. 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 Pain in joint RIGHT HIP Papanicolaou smear of cervix with atypical squamous cells of undetermined significance (ASC-US) 1992; 1993 Psoriasis 07/12/2011 Restless legs syndrome (RLS) 04/22/2014 Seborrheic dermatitis of scalp 05/26/2010 Symptomatic menopausal or female climacteric states Previous Surgical History PAST SURGICAL HISTORY Procedure Laterality Date CAUTERY CERVIX CRYOCAUTERY INITIAL/REPEAT 1993 [place]aps since [place]; RICHARD/BSO 1994 COLONOSCOPY FLX DX W/COLLJ SPEC WHEN PFRMD 04/27/2001 Colonoscopy-repeat in COLONOSCOPY FLX DX W/COLLJ SPEC WHEN PFRMD 04/30/2011 EXCISION PILONIDAL CYST/SINUS SIMPLE Excision pilonidal cyst LIG/TRNSXJ FLP TUBE ABDL/VAG APPR UNI/BI Tubal ligation LUMBAR OR CAUDAL EPIDURAL STEROID INJECTION 02/23/2017 PAST SURGICAL HISTORY OF 05/26/2012 rotor cuff surgery (R) Dr Beaulieu PAST SURGICAL HISTORY OF Right 02/19/2020 reverse right shoulder replacement. REM LESION TRUNK,ARM, LEG <0.5 CM 03/01/2012 Exc. left lateral malleous skin lesion REM LESION TRUNK,ARM,LEG 0.6 -1.0CM 07/26/2007 Exc. right medial thigh skin lesion ROTATOR CUFF REPAIR 10/15/2015 SALPINGO-OOPHORECTOMY COMPL/PRTL UNI/BI SPX Salpingo-oophorectomy Bilateral TOTAL ABDOMINAL HYSTERECT W/WO RMVL TUBE OVARY 1994 Hysterectomy, RICHARD Fibroids and bleeding Family History FAMILY HISTORY Problem Relation Age of Onset Hypertension Mother pulmonary embolus Kidney Disease Mother other (Heart problem) Mother CA 10/11/2012 Hypertension Father Diabetes Sister Diabetes Paternal Grandmother Colon Cancer Maternal Aunt Breast Cancer Paternal Aunt Diabetes Paternal Aunt Diabetes Paternal Uncle Patient Allergies ALLERGIES Allergen Reactions Lipitor [Atorvastat* Myalgia Pravachol [Pravasta* Intolerance muscle ache Sulfa (Sulfonamide * GI Upset Current Medications Current Outpatient Medications on File Prior to Visit Medication Sig Quinapril HCl 40 mg tablet TAKE 1 TABLET BY MOUTH EVERY DAY rosuvastatin (CRESTOR) 20 mg tablet Take 1 tablet by mouth once daily. cholecalciferol, vitamin D3, (VITAMIN D3 ORAL) Take by mouth. Biotin 2,500 mcg cap Take 5,000 mcg by mouth once daily. fexofenadine (DARIO) 180 mg ORAL tablet Take 1 tablet by mouth once daily. Clobetasol (CLOBEX) 0.05 % TOPICAL Cameron Apply 1 application to affected area once daily as needed. aspirin(ECOTRIN LOW STRENGTH 81 MG TAB) Take one(1) tablet daily. MULTI-VITAMIN TAB Take one(1) tablet daily. CALCIUM + D 600 MG-200 UNIT TAB Take one(1) tablet daily. No current facility-administered medications on file prior to visit. Social History Social History Tobacco Use Smoking status: Never Smoker Smokeless tobacco: Never Used Vaping Use Vaping Use: Never used Substance Use Topics Alcohol use: Yes Comment: rarely, maybe 3 glasses of wine a year Drug use: No Review of Symptoms REVIEW OF SYSTEMS GENERAL: No weight loss, malaise or fevers HEENT: No changes in hearing or vision, no nose bleeds or other nasal problems NECK: Negative for lumps, goiter, pain and significant neck swelling RESPIRATORY: Negative for cough, hemoptysis, wheezing, COPD, dyspnea or shortness of breath CARDIOVASCULAR: Negative for chest pain, leg swelling, CHF or palpitations GI: Negative for abdominal discomfort, blood in stools or black stools, change in bowel habit, heart burn, nausea, vomiting : No history of dysuria, frequency or incontinence 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 Negative for sleep disturbance, mood disorder and recent psychosocial stressors HEMATOLOGY/LYMPHOLOGY: Negative for prolonged bleeding, bruising easily or swollen nodes ENDOCRINE: Negative for cold or heat intolerance, polyuria, polydipsia and goiter NEURO: No history of headaches, syncope, paralysis, seizures or tremors EXAM: BP 126/82 (BP Site: Left Arm, BP Position: Sitting, BP Cuff Size: Large Adult) Pulse 80 Temp 36.7 C (98.1 F) Resp 16 Ht 160 cm (5' 2.99 ) Wt 79.4 kg (175 lb) BMI 31.01 kg/m General Appearance: Well appearing, alert, in no acute distress, well-hydrated, well nourished.. Skin: Skin color, texture, turgor normal, no suspicious rashes or lesions. Head: Normocephalic, no masses, lesions, tenderness or abnormalities. Eyes: Anicteric sclera. Pupils are equally round and reactive to light. Extraocular movements are intact. . Ears: External ears normal, canals clear, TMs pearly gore. Nose/Sinuses: deferred- mask Oropharynx: deferred- mask Neck: Supple, no adenopathy; thyroid symmetric, normal size, no bruits. Lungs: Lungs clear to auscultation. No wheezing, rhonchi, rales.. Heart: RRR without murmur, gallop, or rubs. No ectopy. Abdomen: Normal abdominal exam, Abdomen soft, non-tender. Bowel sounds normal. No masses, organomegaly. Extremities: No deformities, edema, skin discoloration, clubbing or cyanosis. Good capillary refill. . Peripheral Pulses: Normal. Neurologic: Gait normal. Reflexes normal and symmetric. Sensation grossly intact.. Health Maintenance List ADVANCE DIRECTIVE DISCUSSION Never done BP CONTROLLED (<130/80) due on 08/26/2021 INFLUENZA(1) due on 11/12/2021 MAMMOGRAM due on 07/23/2022 ANNUAL PCP TEAM CHRONIC DISEASE VISIT due on 09/16/2022 DIABETES SCREEN due on 09/04/2024 LIPID SCREEN due on 09/04/2026 COLORECTAL CANCER SCREENING due on 09/08/2026 DTAP,TDAP,TD(7 - Td or Tdap) due on 10/11/2027 BONE DENSITY Completed HEPATITIS C SCREENING Completed SHINGRIX VACCINE Completed COVID-19 VACCINE Completed PNEUMOCOCCAL: 65+ Completed DEPRESSION SCREENING Discontinued Data reviewed Component Latest Ref Rng & Units 09/04/2021 WBC 3.70 - 11.00 k/uL 6.13 RBC 3.90 - 5.20 m/uL 4.32 Hemoglobin 11.5 - 15.5 g/dL 12.6 Hematocrit 36.0 - 46.0 % 40.2 MCV 80.0 - 100.0 fL 93.1 MCH 26.0 - 34.0 pg 29.2 MCHC 30.5 - 36.0 g/dL 31.3 RDW-CV 11.5 - 15.0 % 13.7 Platelet Count 150 - 400 k/uL 290 MPV 9.0 - 12.7 fL 10.4 Neut% % 47.8 Abs Neut (ANC) 1.45 - 7.50 k/uL 2.93 Lymph% % 42.3 Abs Lymph 1.00 - 4.00 k/uL 2.59 Deuel% % 7.5 Abs Deuel <0.87 k/uL 0.46 Eosin% % 1.6 Abs Eosin <0.46 k/uL 0.10 Baso% % 0.8 Abs Baso <0.11 k/uL 0.05 Immature Gran % % 0.0 IMMATURE GRANS (ABS) <0.10 k/uL <0.03 NRBC /100 WBC 0.0 Absolute nRBC <0.01 k/uL <0.01 DTYPE Auto Protein, Total 6.3 - 8.0 g/dL 7.0 Albumin 3.9 - 4.9 g/dL 4.3 Calcium 8.5 - 10.2 mg/dL 10.3 (H) Bilirubin, Total 0.2 - 1.3 mg/dL 0.2 Alkaline Phosphatase 34 - 123 U/L 94 AST 13 - 35 U/L 24 ALT 7 - 38 U/L 20 Glucose 74 - 99 mg/dL 71 (L) BUN 7 - 21 mg/dL 14 Creatinine 0.58 - 0.96 mg/dL 0.68 Sodium 136 - 144 mmol/L 140 Potassium 3.7 - 5.1 mmol/L 4.5 Chloride 97 - 105 mmol/L 103 CO2 22 - 30 mmol/L 27 Anion Gap 9 - 18 mmol/L 10 eGFR >=60 mL/min/1.73m 92 Color Yellow Light Yellow Clarity Clear Slightly Cloudy (A) Glucose, Urine Negative Negative Bilirubin, Urine Negative Negative Ketones, Urine Negative Negative Specific Vance, Ur 1.005 - 1.030 1.014 Hemoglobin/Blood,Ur Negative Negative pH, Urine 5.0 - 8.0 8.0 Protein, Urine Negative Negative Urobilinogen Negative Negative Nitrites Negative Negative Leukest Negative Negative WBC, Urine 0-5 /HPF 0-5 /HPF RBC, Urine 0-3 /HPF 3-5 /HPF (A) Epithelial Cells /HPF Few Non-Squamous Epithelial Cells None Seen /HPF Few (A) Total Cholesterol, Nonfasting <200 mg/dL 152 Triglycerides, Nonfasting <150 mg/dL 106 HDL Cholesterol, Nonfasting >39 mg/dL 59 LDL Cholesterol, Nonfasting <100 mg/dL 72 Non HDL Cholesterol, Nonfasting <130 mg/dL 93 VLDL Cholesterol, Nonfasting <30 mg/dL 21 Total Chol/HDL Ratio, Nonfasting <5.10 mg/dL 2.58 LDL/HDL Ratio, Nonfasting <2.54 mg/dL 1.22 Hemoglobin A1C 4.3 - 5.6 % 6.0 (H) Estimated Average Glucose mg/dL 126 ASSESSMENT/PLAN: 1. Medicare annual wellness visit, subsequent - ICD9: V70.0, ICD10: Z00.00 (primary diagnosis) - Counseled on healthy diet and regular exercise - Calcium intake with supplements or by diet of 1000 mg/day for under 50, 5774-7680 mg/day for 50+ 2. Advance directive discussed with patient - ICD9: V65.49, ICD10: Z71.89 3. Microscopic hematuria - ICD9: 599.72, ICD10: R31.29 Recheck in 2 weeks - URINALYSIS, WITH MICROSCOPIC 4. Essential hypertension, benign - ICD9: 401.1, ICD10: I10 - good control - Continue current medication(s) - Recommended regular aerobic exercise. - Recommend home blood pressure monitoring, to bring results in on next visit - Goal of BP <130/80 - URINALYSIS, WITH MICROSCOPIC 5. Mixed hyperlipidemia - ICD9: 272.2, ICD10: E78.2 - good control - Encouraged following a low carbohydrate, healthy oil intake diet. - Continue current therapy. - LIPID PANEL, NONFASTING 6. Impaired fasting glucose - ICD9: 790.21, ICD10: R73.01 stable - COMP METABOLIC PANEL - HGB A1C 7. Restless legs syndrome (RLS) - ICD9: 333.94, ICD10: G25.81 stable 8. Adrenal nodule (HCC) - ICD9: 255.8, ICD10: E27.[address] for CT later this year. 9. Melanoma of skin (HCC) - ICD9: 172.9, ICD10: C43.9 Continue with derm. F/u 6 months. Labs prior. Twyla Bowman PA-C documented in this encounter [facility] 08-05-2021 Miscellaneous Notes Pt notified rx sent to pharmacy via Hoj[employer] message Emmy Valdez Ma documented in this encounter [facility] 08-05-2021 Miscellaneous Notes Patient has been identified by name and date of : Yes Pending Prescriptions Disp Refills QUINAPRIL 40 MG TABLET 90 tablet 3 Sig: TAKE 1 TABLET BY MOUTH EVERY DAY KALYN: Yes RX INSTRUCTIONS: Patient aware RX will be sent to pharmacy. No need to notify patient. Parisa Powell MA José Luis: 04/2021 Nov: 10/2021 Last refill; 07/2020 documented in this encounter [facility] documented as of this encounter (statuses as of 08/05/2021) [facility] History of Past illness Narrative* Problem Noted Date Resolved Date Eustachian tube dysfunction, right 02/22/2017 10/10/2017 Seborrheic keratosis 02/08/2012 03/26/2014 Sebaceous cyst 08/03/2011 03/26/2014 Seborrheic dermatitis of scalp 05/26/2010 1 03/17/2015 Sciatica 12/26/2009 03/26/2014 Symptomatic menopausal or female climacteric sta kanchan 07/11/2008 01/16/2016 Allergic rhinitis, cause unspecified 01/16/2016 documented as of this encounter (statuses as of 08/06/2021) [facility] History of Past illness Narrative* Problem Noted Date Resolved Date Eustachian tube dysfunction, right 02/22/2017 10/10/2017 Seborrheic keratosis 02/08/2012 03/26/2014 Sebaceous cyst 08/03/2011 03/26/2014 Seborrheic dermatitis of scalp 05/26/2010 1 03/17/2015 Sciatica 12/26/2009 03/26/2014 Symptomatic menopausal or female climacteric sta kanchan 07/11/2008 01/16/2016 Allergic rhinitis, cause unspecified 01/16/2016 documented as of this encounter (statuses as of 09/02/2021) [facility] of Past illness Narrative* Problem Noted Date Resolved Date Eustachian tube dysfunction, right 02/22/2017 10/10/2017 Seborrheic keratosis 02/08/2012 03/26/2014 Sebaceous cyst 08/03/2011 03/26/2014 Seborrheic dermatitis of scalp 05/26/2010 1 03/17/2015 Sciatica 12/26/2009 03/26/2014 Symptomatic menopausal or female climacteric sta kanchan 07/11/2008 01/16/2016 Allergic rhinitis, cause unspecified 01/16/2016 documented as of this encounter (statuses as of 09/16/2021) [facility] History of Past illness Narrative* Problem Noted Date Resolved Date Eustachian tube dysfunction, right 02/22/2017 10/10/2017 Seborrheic keratosis 02/08/2012 03/26/2014 Sebaceous cyst 08/03/2011 03/26/2014 Seborrheic dermatitis of scalp 05/26/2010 1 03/17/2015 Sciatica 12/26/2009 03/26/2014 Symptomatic menopausal or female climacteric sta kanchan 07/11/2008 01/16/2016 Allergic rhinitis, cause unspecified 01/16/2016 documented as of this encounter (statuses as of 10/01/2021) [facility] History of Past illness Narrative* Problem Noted Date Resolved Date Eustachian tube dysfunction, right 02/22/2017 10/10/2017 Seborrheic keratosis 02/08/2012 03/26/2014 Sebaceous cyst 08/03/2011 03/26/2014 Seborrheic dermatitis of scalp 05/26/2010 1 03/17/2015 Sciatica 12/26/2009 03/26/2014 Symptomatic menopausal or female climacteric sta kanchan 07/11/2008 01/16/2016 Allergic rhinitis, cause unspecified 01/16/2016 documented as of this encounter (statuses as of 11/30/2021) [facility] of Past illness Narrative* Problem Noted Date Resolved Date Eustachian tube dysfunction, right 02/22/2017 10/10/2017 Seborrheic keratosis 02/08/2012 03/26/2014 Sebaceous cyst 08/03/2011 03/26/2014 Seborrheic dermatitis of scalp 05/26/2010 1 03/17/2015 Sciatica 12/26/2009 03/26/2014 Symptomatic menopausal or female climacteric sta kanchan 07/11/2008 01/16/2016 Allergic rhinitis, cause unspecified 01/16/2016 documented as of this encounter (statuses as of 12/07/2021) [facility] History of Past illness Narrative* Problem Noted Date Resolved Date Eustachian tube dysfunction, right 02/22/2017 10/10/2017 Seborrheic keratosis 02/08/2012 03/26/2014 Sebaceous cyst 08/03/2011 03/26/2014 Seborrheic dermatitis of scalp 05/26/2010 1 03/17/2015 Sciatica 12/26/2009 03/26/2014 Symptomatic menopausal or female climacteric sta kanchan 07/11/2008 01/16/2016 Allergic rhinitis, cause unspecified 01/16/2016 documented as of this encounter (statuses as of 12/16/2021) [facility] History of Past illness Narrative* Problem Noted Date Resolved Date Eustachian tube dysfunction, right 02/22/2017 10/10/2017 Seborrheic keratosis 02/08/2012 03/26/2014 Sebaceous cyst 08/03/2011 03/26/2014 Seborrheic dermatitis of scalp 05/26/2010 1 03/17/2015 Sciatica 12/26/2009 03/26/2014 Symptomatic menopausal or female climacteric sta kanchan 07/11/2008 01/16/2016 Allergic rhinitis, cause unspecified 01/16/2016 documented as of this encounter (statuses as of 01/06/2022) [facility] History of Past illness Narrative* Problem Noted Date Resolved Date Eustachian tube dysfunction, right 02/22/2017 10/10/2017 Seborrheic keratosis 02/08/2012 03/26/2014 Sebaceous cyst 08/03/2011 03/26/2014 Seborrheic dermatitis of scalp 05/26/2010 1 03/17/2015 Sciatica 12/26/2009 03/26/2014 Symptomatic menopausal or female climacteric sta kanchan 07/11/2008 01/16/2016 Allergic rhinitis, cause unspecified 01/16/2016 documented as of this encounter (statuses as of 01/11/2022) [facility] History of Past illness Narrative* Problem Noted Date Resolved Date Eustachian tube dysfunction, right 02/22/2017 10/10/2017 Seborrheic keratosis 02/08/2012 03/26/2014 Sebaceous cyst 08/03/2011 03/26/2014 Seborrheic dermatitis of scalp 05/26/2010 1 03/17/2015 Sciatica 12/26/2009 03/26/2014 Symptomatic menopausal or female climacteric sta kanchan 07/11/2008 01/16/2016 Allergic rhinitis, cause unspecified 01/16/2016 documented as of this encounter (statuses as of 02/08/2022) [place] [address]-12-2017 History of Past illness Narrative* Problem Noted Date Resolved Date Eustachian tube dysfunction, right 02/22/2017 10/10/2017 Seborrheic keratosis 02/08/2012 03/26/2014 Sebaceous cyst 08/03/2011 03/26/2014 Seborrheic dermatitis of scalp 05/26/2010 1 03/17/2015 Sciatica 12/26/2009 03/26/2014 Symptomatic menopausal or female climacteric sta kanchan 07/11/2008 01/16/2016 Allergic rhinitis, cause unspecified 01/16/2016 documented as of this encounter (statuses as of 03/20/2022) [facility] History of Past illness Narrative* Problem Noted Date Resolved Date Eustachian tube dysfunction, right 02/22/2017 10/10/2017 Seborrheic keratosis 02/08/2012 03/26/2014 Sebaceous cyst 08/03/2011 03/26/2014 Seborrheic dermatitis of scalp 05/26/2010 1 03/17/2015 Sciatica 12/26/2009 03/26/2014 Symptomatic menopausal or female climacteric sta kanchan 07/11/2008 01/16/2016 Allergic rhinitis, cause unspecified 01/16/2016 documented as of this encounter (statuses as of 03/23/2022) [facility] History of Past illness Narrative* Problem Noted Date Resolved Date Eustachian tube dysfunction, right 02/22/2017 10/10/2017 Seborrheic keratosis 02/08/2012 03/26/2014 Sebaceous cyst 08/03/2011 03/26/2014 Seborrheic dermatitis of scalp 05/26/2010 1 03/17/2015 Sciatica 12/26/2009 03/26/2014 Symptomatic menopausal or female climacteric sta kanchan 07/11/2008 01/16/2016 Allergic rhinitis, cause unspecified 01/16/2016 documented as of this encounter (statuses as of 04/26/2022) [facility] History of Past illness Narrative* Problem Noted Date Resolved Date Eustachian tube dysfunction, right 02/22/2017 10/10/2017 Seborrheic keratosis 02/08/2012 03/26/2014 Sebaceous cyst 08/03/2011 03/26/2014 Seborrheic dermatitis of scalp 05/26/2010 1 03/17/2015 Sciatica 12/26/2009 03/26/2014 Symptomatic menopausal or female climacteric sta kanchan 07/11/2008 01/16/2016 Allergic rhinitis, cause unspecified 01/16/2016 documented as of this encounter (statuses as of 05/15/2022) [facility] History of Past illness Narrative* Problem Noted Date Resolved Date Eustachian tube dysfunction, right 02/22/2017 10/10/2017 Seborrheic keratosis 02/08/2012 03/26/2014 Sebaceous cyst 08/03/2011 03/26/2014 Seborrheic dermatitis of scalp 05/26/2010 1 03/17/2015 Sciatica 12/26/2009 03/26/2014 Symptomatic menopausal or female climacteric sta kanchan 07/11/2008 01/16/2016 Allergic rhinitis, cause unspecified 01/16/2016 documented as of this encounter (statuses as of 07/23/2022) [facility] History of Past illness Narrative* Problem Noted Date Resolved Date Eustachian tube dysfunction, right 02/22/2017 10/10/2017 Seborrheic keratosis 02/08/2012 03/26/2014 Sebaceous cyst 08/03/2011 03/26/2014 Seborrheic dermatitis of scalp 05/26/2010 1 03/17/2015 Sciatica 12/26/2009 03/26/2014 Symptomatic menopausal or female climacteric sta kanchan 07/11/2008 01/16/2016 Allergic rhinitis, cause unspecified 01/16/2016 documented as of this encounter (statuses as of 09/07/2022) [facility] History of Past illness Narrative* Problem Noted Date Resolved Date Eustachian tube dysfunction, right 02/22/2017 10/10/2017 Seborrheic keratosis 02/08/2012 03/26/2014 Sebaceous cyst 08/03/2011 03/26/2014 Seborrheic dermatitis of scalp 05/26/2010 1 03/17/2015 Sciatica 12/26/2009 03/26/2014 Symptomatic menopausal or female climacteric sta kanchan 07/11/2008 01/16/2016 Allergic rhinitis, cause unspecified 01/16/2016 documented as of this encounter (statuses as of 09/16/2022) [facility] History of Past illness Narrative* Problem Noted Date Resolved Date Eustachian tube dysfunction, right 02/22/2017 10/10/2017 Seborrheic keratosis 02/08/2012 03/26/2014 Sebaceous cyst 08/03/2011 03/26/2014 Seborrheic dermatitis of scalp 05/26/2010 1 03/17/2015 Sciatica 12/26/2009 03/26/2014 Symptomatic menopausal or female climacteric sta kanchan 07/11/2008 01/16/2016 Allergic rhinitis, cause unspecified 01/16/2016 documented as of this encounter (statuses as of 09/17/2022) [facility] History of Past illness Narrative* Problem Noted Date Diagnosed Date Resolved Date Eustachian tube dysfunction, right 02/22/2017 10/10/2017 Seborrheic keratosis 02/08/2012 015 Sebaceous cyst 08/03/2011 03/26/2014 Seborrheic dermatitis of scalp 05/26/2010 01/16/2016 Sciatica 12/26/2009 03/26/2014 Symptomatic menopausal or fe male climacteric states 07/11/2008 01/16/2016 Allergic rhinitis, cause unspecified 01/16/2016 documented as of this encounter (statuses as of 09/26/2022) [facility] History of Past illness Narrative* Problem Noted Date Diagnosed Date Resolved Date Eustachian tube dysfunction, right 02/22/2017 10/10/2017 Seborrheic keratosis 02/08/2012 015 Sebaceous cyst 08/03/2011 03/26/2014 Seborrheic dermatitis of scalp 05/26/2010 01/16/2016 Sciatica 12/26/2009 03/26/2014 Symptomatic menopausal or fe male climacteric states 07/11/2008 01/16/2016 Allergic rhinitis, cause unspecified 01/16/2016 documented as of this encounter (statuses as of 10/12/2022) [facility] History of Past illness Narrative* Problem Noted Date Diagnosed Date Resolved Date Eustachian tube dysfunction, right 02/22/2017 10/10/2017 Seborrheic keratosis 02/08/2012 015 Sebaceous cyst 08/03/2011 03/26/2014 Seborrheic dermatitis of scalp 05/26/2010 01/16/2016 Sciatica 12/26/2009 03/26/2014 Symptomatic menopausal or fe male climacteric states 07/11/2008 01/16/2016 Allergic rhinitis, cause unspecified 01/16/2016 documented as of this encounter (statuses as of 10/13/2022) [facility] History of Past illness Narrative* Problem Noted Date Diagnosed Date Resolved Date Eustachian tube dysfunction, right 02/22/2017 10/10/2017 Seborrheic keratosis 02/08/2012 015 Sebaceous cyst 08/03/2011 03/26/2014 Seborrheic dermatitis of scalp 05/26/2010 01/16/2016 Sciatica 12/26/2009 03/26/2014 Symptomatic menopausal or fe male climacteric states 07/11/2008 01/16/2016 Allergic rhinitis, cause unspecified 01/16/2016 documented as of this encounter (statuses as of 10/16/2022) [facility] of Past illness Narrative* Problem Noted Date Diagnosed Date Resolved Date Eustachian tube dysfunction, right 02/22/2017 10/10/2017 Seborrheic keratosis 02/08/2012 015 Sebaceous cyst 08/03/2011 03/26/2014 Seborrheic dermatitis of scalp 05/26/2010 01/16/2016 Sciatica 12/26/2009 03/26/2014 Symptomatic menopausal or fe male climacteric states 07/11/2008 01/16/2016 Allergic rhinitis, cause unspecified 01/16/2016 documented as of this encounter (statuses as of 10/17/2022) [facility] History of Past illness Narrative* Problem Noted Date Diagnosed Date Resolved Date Eustachian tube dysfunction, right 02/22/2017 10/10/2017 Seborrheic keratosis 02/08/2012 015 Sebaceous cyst 08/03/2011 03/26/2014 Seborrheic dermatitis of scalp 05/26/2010 01/16/2016 Sciatica 12/26/2009 03/26/2014 Symptomatic menopausal or fe male climacteric states 07/11/2008 01/16/2016 Allergic rhinitis, cause unspecified 01/16/2016 documented as of this encounter (statuses as of 11/11/2022) [facility] of Past illness Narrative* Problem Noted Date Diagnosed Date Resolved Date Eustachian tube dysfunction, right 02/22/2017 10/10/2017 Seborrheic keratosis 02/08/2012 015 Sebaceous cyst 08/03/2011 03/26/2014 Seborrheic dermatitis of scalp 05/26/2010 01/16/2016 Sciatica 12/26/2009 03/26/2014 Symptomatic menopausal or fe male climacteric states 07/11/2008 01/16/2016 Allergic rhinitis, cause unspecified 01/16/2016 documented as of this encounter (statuses as of 12/18/2022) [facility] of Past illness Narrative* Problem Noted Date Diagnosed Date Resolved Date Eustachian tube dysfunction, right 02/22/2017 10/10/2017 Seborrheic keratosis 02/08/2012 015 Sebaceous cyst 08/03/2011 03/26/2014 Seborrheic dermatitis of scalp 05/26/2010 01/16/2016 Sciatica 12/26/2009 03/26/2014 Symptomatic menopausal or fe male climacteric states 07/11/2008 01/16/2016 Allergic rhinitis, cause unspecified 01/16/2016 documented as of this encounter (statuses as of 01/10/2023) [facility] of Past illness Narrative* Problem Noted Date Diagnosed Date Resolved Date Eustachian tube dysfunction, right 02/22/2017 10/10/2017 Seborrheic keratosis 02/08/2012 015 Sebaceous cyst 08/03/2011 03/26/2014 Seborrheic dermatitis of scalp 05/26/2010 01/16/2016 Sciatica 12/26/2009 03/26/2014 Symptomatic menopausal or fe male climacteric states 07/11/2008 01/16/2016 Allergic rhinitis, cause unspecified 01/16/2016 documented as of this encounter (statuses as of 01/16/2023) [facility] of Past illness Narrative* Problem Noted Date Diagnosed Date Resolved Date Eustachian tube dysfunction, right 02/22/2017 10/10/2017 Seborrheic keratosis 02/08/2012 015 Sebaceous cyst 08/03/2011 03/26/2014 Seborrheic dermatitis of scalp 05/26/2010 01/16/2016 Sciatica 12/26/2009 03/26/2014 Symptomatic menopausal or fe male climacteric states 07/11/2008 01/16/2016 Allergic rhinitis, cause unspecified 01/16/2016 documented as of this encounter (statuses as of 01/16/2023) [facility] Diagnosis Medicare annual wellness visit, subsequent- Primary Routine general medical examination at a health care facility Advance directive discussed with patient Other specified counseling Microscopic hematuria Essential hypertension, benign Mixed hyperlipidemia Impaired fasting glucose Restless legs syndrome (RLS) Adrenal nodule (HCC) Unspecified disorder of adrenal glands Melanoma of skin (HCC) Melanoma of skin, site unspecified [facility] Adrenal adenoma, left [facility] Diagnosis Lung nodules Other nonspecific abnormal finding of lung field [facility] Diagnosis Rhinosinusitis- Primary Unspecified sinusitis (chronic) [facility] Diagnosis Essential hypertension, benign- Primary Impaired fasting glucose Restless legs syndrome (RLS) Melanoma of skin (HCC) Melanoma of skin, site unspecified Living will in place Advance directive discussed with patient Other specified counseling Medication management Encounter for long-term (current) use of other medications [facility] Diagnosis URI, acute- Primary Acute upper respiratory infections of unspecified site [facility] Diagnosis Rhinosinusitis- Primary Unspecified sinusitis (chronic) [facility] Diagnosis Essential hypertension, benign- Primary Medicare annual wellness visit, subsequent Routine general medical examination at a health care facility Mixed hyperlipidemia Bladder prolapse, female, acquired Cystocele, midline [facility] Diagnosis Mixed hyperlipidemia- Primary Impaired fasting glucose Essential hypertension, benign [facility] Diagnosis Lip swelling- Primary Diseases of lips [facility] Diagnosis Angioedema, initial encounter- Primary Essential hypertension, benign LVH (left ventricular hypertrophy) Cardiomegaly Abnormal EKG Nonspecific abnormal electrocardiogram (ECG) (EKG) [facility] Diagnosis Essential hypertension, benign- Primary [facility] Diagnosis Acute UTI- Primary Urinary tract infection, site not specified documented in this encounter [facility] note* Diagnosis Lung nodules Other nonspecific abnormal finding of lung field documented in this encounter [facility] note* Diagnosis Adenoma of left adrenal gland Benign neoplasm of adrenal gland Adrenal nodule (HCC) Unspecified disorder of adrenal glands documented in this encounter [facility] for referral (narrative)* Outpatient Procedure (Routine) - Closed Specialty Diagnoses / Procedures Referred By Manasa mackenzie [facility] Diagnoses Essential hypertension, benign LVH (left ventricular hypertrophy) Abnormal EKG Procedures ECHO ECHO TTHRC R-T 2D W/WOM-MODE COMPL SPEC&COLR D Rodríguez Theodore MD [address] [place] [address] [facility] [place] [address] [place] [address] Referral ID Status Reason Start Date Expiration Date V isits Requested Visits Authorized [id number] Closed Auto-Generate d Referral 10/14/2022 10/14/2023 1 1 [facility] Summary Purpose Family History No Family History Records FoundNo Family History Records Found Advance Directives No Advanced Directives Records FoundDocuments on File Type Date Recorded Patient [employer] Expl anation Advance Directive(s) 04/29/2022 8:58 AM Documents on File Type Date Recorded Patient Boat [employer]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 [employer]ic Expl anation Advance Directive(s) 04/29/2022 8:58 AM Health Concerns Infection Onset Date Last Indicated Resolved Time COVID-19 Rule-Out 05/15/2022 05/15/2022 Reason for Referral Specialty Diagnoses / Procedures Referred By Manasa mackenzie Referred To Contact [facility] Diagnoses Lung nodules Procedures CT CHEST WO IVCON CAT SCAN OF CHEST Rodríguez Theodore MD [address] [place] [address] [place] [address] Referral ID Status Reason Start Date Expiration Date V isits Requested Visits Authorized [id number] Closed Auto-Generate d Referral 01/05/2022 03/28/2022 1 1 Specialty Diagnoses / Procedures Referred By Contac t Referred To Contact CT IMAG[facility] Diagnoses Adenoma of left adrenal gland Adrenal nodule (HCC) Procedures CT ADRENAL WO/W IVCON CT ABDOMEN W & W/O CONTRAST Rodríguez Theodore MD [address] [place] [address] [place] [address] Referral ID Status Reason Start Date Expiration Date V isits Requested Visits Authorized [id number] Closed Auto-Generate d Referral 01/05/2022 03/28/2022 1 1 Additional Source Comments INFORMATION SOURCE (unrecogn ized section and content) DATE CREATED AUTHOR AUTHOR'S ORGANIZ ATION 03/26/2023 [facility] Source Comments (unrecognize d section and content) In the event this informatio n is protected by the Federal Confidentiality of Alcohol and Drug Abuse Patient Records regulations: The Federal rules restrict any use of the information to criminally investigate or prosecute any alcohol or drug abuse patient.[facility] the event this information is protected by the Federal Confidentiality of Alcohol and Drug Abuse Patient Records regulations: The Federal rules restrict any use of the information to criminally investigate or prosecute any alcohol or drug abuse patient.[facility] the event this information is protected by the Federal Confidentiality of Alcohol and Drug Abuse Patient Records regulations: The Federal rules restrict any use of the information to criminally investigate or prosecute any alcohol or drug abuse patient.[facility] CenterIn the event this information is protected by the Federal Confidentiality of Alcohol and Drug Abuse Patient Records regulations: The Federal rules restrict any use of the information to criminally investigate or prosecute any alcohol or drug abuse patient.[facility] CenterIn the event this information is protected by the Federal Confidentiality of Alcohol and Drug Abuse Patient Records regulations: The Federal rules restrict any use of the information to criminally investigate or prosecute any alcohol or drug abuse patient.[facility] CenterIn the event this information is protected by the Federal Confidentiality of Alcohol and Drug Abuse Patient Records regulations: The Federal rules restrict any use of the information to criminally investigate or prosecute any alcohol or drug abuse patient.[facility] CenterIn the event this information is protected by the Federal Confidentiality of Alcohol and Drug Abuse Patient Records regulations: The Federal rules restrict any use of the information to criminally investigate or prosecute any alcohol or drug abuse patient.[facility] CenterIn the event this information is protected by the Federal Confidentiality of Alcohol and Drug Abuse Patient Records regulations: The Federal rules restrict any use of the information to criminally investigate or prosecute any alcohol or drug abuse patient.[facility] CenterIn the event this information is protected by the Federal Confidentiality of Alcohol and Drug Abuse Patient Records regulations: The Federal rules restrict any use of the information to criminally investigate or prosecute any alcohol or drug abuse patient.[facility] CenterIn the event this information is protected by the Federal Confidentiality of Alcohol and Drug Abuse Patient Records regulations: The Federal rules restrict any use of the information to criminally investigate or prosecute any alcohol or drug abuse patient.[facility] CenterIn the event this information is protected by the Federal Confidentiality of Alcohol and Drug Abuse Patient Records regulations: The Federal rules restrict any use of the information to criminally investigate or prosecute any alcohol or drug abuse patient.[facility] CenterIn the event this information is protected by the Federal Confidentiality of Alcohol and Drug Abuse Patient Records regulations: The Federal rules restrict any use of the information to criminally investigate or prosecute any alcohol or drug abuse patient.[facility] CenterIn the event this information is protected by the Federal Confidentiality of Alcohol and Drug Abuse Patient Records regulations: The Federal rules restrict any use of the information to criminally investigate or prosecute any alcohol or drug abuse patient.[facility] CenterIn the event this information is protected by the Federal Confidentiality of Alcohol and Drug Abuse Patient Records regulations: The Federal rules restrict any use of the information to criminally investigate or prosecute any alcohol or drug abuse patient.[facility]In the event this information is protected by the Federal Confidentiality of Alcohol and Drug Abuse Patient Records regulations: The Federal rules restrict any use of the information to criminally investigate or prosecute any alcohol or drug abuse patient.[facility] CenterIn the event this information is protected by the Federal Confidentiality of Alcohol and Drug Abuse Patient Records regulations: The Federal rules restrict any use of the information to criminally investigate or prosecute any alcohol or drug abuse patient.[facility] CenterIn the event this information is protected by the Federal Confidentiality of Alcohol and Drug Abuse Patient Records regulations: The Federal rules restrict any use of the information to criminally investigate or prosecute any alcohol or drug abuse patient.[facility] CenterIn the event this information is protected by the Federal Confidentiality of Alcohol and Drug Abuse Patient Records regulations: The Federal rules restrict any use of the information to criminally investigate or prosecute any alcohol or drug abuse patient.[facility] CenterIn the event this information is protected by the Federal Confidentiality of Alcohol and Drug Abuse Patient Records regulations: The Federal rules restrict any use of the information to criminally investigate or prosecute any alcohol or drug abuse patient.[facility] CenterIn the event this information is protected by the Federal Confidentiality of Alcohol and Drug Abuse Patient Records regulations: The Federal rules restrict any use of the information to criminally investigate or prosecute any alcohol or drug abuse patient.[facility] CenterIn the event this information is protected by the Federal Confidentiality of Alcohol and Drug Abuse Patient Records regulations: The Federal rules restrict any use of the information to criminally investigate or prosecute any alcohol or drug abuse patient.[facility] CenterIn the event this information is protected by the Federal Confidentiality of Alcohol and Drug Abuse Patient Records regulations: The Federal rules restrict any use of the information to criminally investigate or prosecute any alcohol or drug abuse patient.[facility] CenterIn the event this information is protected by the Federal Confidentiality of Alcohol and Drug Abuse Patient Records regulations: The Federal rules restrict any use of the information to criminally investigate or prosecute any alcohol or drug abuse patient.[facility] CenterIn the event this information is protected by the Federal Confidentiality of Alcohol and Drug Abuse Patient Records regulations: The Federal rules restrict any use of the information to criminally investigate or prosecute any alcohol or drug abuse patient.[facility] CenterIn the event this information is protected by the Federal Confidentiality of Alcohol and Drug Abuse Patient Records regulations: The Federal rules restrict any use of the information to criminally investigate or prosecute any alcohol or drug abuse patient.[facility] CenterIn the event this information is protected by the Federal Confidentiality of Alcohol and Drug Abuse Patient Records regulations: The Federal rules restrict any use of the information to criminally investigate or prosecute any alcohol or drug abuse patient.[facility] CenterIn the event this information is protected by the Federal Confidentiality of Alcohol and Drug Abuse Patient Records regulations: The Federal rules restrict any use of the information to criminally investigate or prosecute any alcohol or drug abuse patient.[facility] CenterIn the event this information is protected by the Federal Confidentiality of Alcohol and Drug Abuse Patient Records regulations: The Federal rules restrict any use of the information to criminally investigate or prosecute any alcohol or drug abuse patient.[facility] CenterIn the event this information is protected by the Federal Confidentiality of Alcohol and Drug Abuse Patient Records regulations: The Federal rules restrict any use of the information to criminally investigate or prosecute any alcohol or drug abuse patient.[facility] CenterIn the event this information is protected by the Federal Confidentiality of Alcohol and Drug Abuse Patient Records regulations: The Federal rules restrict any use of the information to criminally investigate or prosecute any alcohol or drug abuse patient.[facility] Reason for Visit (unrecogniz ed section and content) Reason Onset Date Comments Refill Request 08/05/2021 Reason Comments Medicare Wellness Exam Reason Comments Results Reason Onset Date Comments Refill Request 11/29/2021 Reason Comments Nasal Congestion drainage,cough and s ore throat x 10 days Reason Comments F/U 6 months Reason Comments Medication Problem Reason Comments Cough Cough, ST, bodyaches , MONTANEZ, runny nose and head congestion x 2-3 days Reason Comments Cough Head and chest conge stion x1 week Reason Onset Date Comments Refill Request 09/07/2022 Reason Comments Physical Reason Comments Edema Swelling in top lip x 7 hrs Reason Comments Patient Update Reason Comments Blood Pressure Readings Reason Comments Hospital Follow Up Reason Comments Follow Up Reason Comments Urinary Frequency x 3 days Reason Comments Radiology CT Specialty Diagnoses / Procedures Referred By Contac t Referred To Contact CT IMAGING Diagnoses Lung nodules Procedures CT CHEST WO IVCON CAT SCAN OF CHEST Rodríguez Theodore MD [address] [place] [address] [place] [address] Referral ID Status Reason Start Date Expiration Date V isits Requested Visits Authorized [id number] Closed Auto-Generate d Referral 01/05/2022 03/28/2022 1 1 Specialty Diagnoses / Procedures Referred By Contac t Referred To Contact CT IMAGING Diagnoses Adenoma of left adrenal gland Adrenal nodule (HCC) Procedures CT ADRENAL WO/W IVCON CT ABDOMEN W & W/O CONTRAST Rodríguez Theodore MD [address] [place] [address] [place] [address] Referral ID Status Reason Start Date Expiration Date V isits Requested Visits Authorized [id number] Closed Auto-Generate d Referral 01/05/2022 03/28/2022 1 1 Care Teams (unrecognized sec tion and content) 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 Relationship Specialty Start Date End Date Rodríguez Theodore MD [address] [place] [address] PCP - General Family Practice 08/26/20 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 Relationship Specialty Start Date End Date Rodríguez Theodore MD [address] [place] [address] [place] [address] PCP - General Family Practice 08/26/20 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 Relationship Specialty Start Date End Date Rodríguez Theodore MD [address] [place] [address] [place] [address] PCP - General Family Practice 08/26/20 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 Relationship Specialty Start Date End Date Rodríguez Theodore MD [address] [place] [address] PCP - General Family Practice 08/26/20 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 Relationship Specialty Start Date End Date Rodríguez Theodore MD [address] [place] [address] PCP - General Family Practice 08/26/20 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 Relationship Specialty Start Date End Date Rodríguez Theodore MD [address] [place] [address] PCP - General Family Medicine 08/26/20 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 Relationship Specialty Start Date End Date Rodríguez Theodore MD [address] [place] [address] PCP - General Family Medicine 08/26/20 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 Relationship Specialty Start Date End Date Rodríguez Theodore MD [address] [place] [address] [place] [address] PCP - General Family Medicine 08/26/20 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 Relationship Specialty Start Date End Date Rodríguez Theodore MD [address] [place] [address] [place] [address] PCP - General Family Medicine 08/26/20 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 Relationship Specialty Start Date End Date Rodríguez Theodore MD [address] [place] [address] PCP - General Family Medicine 08/26/20 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 Relationship Specialty Start Date End Date Rodríguez Theodore MD [address] [place] [address] PCP - General Family Medicine 08/26/20 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 Relationship Specialty Start Date End Date Rodríguez Theodore MD [address] [place] [address] PCP - General Family Medicine 08/26/20 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 Relationship Specialty Start Date End Date Rodríguez Theodore MD [address] [place] [address] PCP - General Family Medicine 08/26/20 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 Relationship Specialty Start Date End Date Rodríguez Theodore MD [address] [place] [address] PCP - General Family Medicine 08/26/20 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 Relationship Specialty Start Date End Date Rodríguez Theodore MD [address] [place] [address] PCP - General Family Medicine 08/26/20 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 Relationship Specialty Start Date End Date Rodríguez Theodore MD [address] [place] [address] PCP - General Family Medicine 08/26/20 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 Relationship Specialty Start Date End Date Rodríguez Theodore MD [address] [place] [address] PCP - General Family Medicine 08/26/20 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 Relationship Specialty Start Date End Date Rodríguez Theodore MD [address] [place] [address] PCP - General Family Medicine 08/26/20 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 Relationship Specialty Start Date End Date Rodríguez Theodore MD [address] [place] [address] PCP - General Family Medicine 08/26/20 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 Relationship Specialty Start Date End Date Rodríguez Theodore MD [address] [place] [address] PCP - General Family Medicine 08/26/20 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 Relationship Specialty Start Date End Date Rodríguez Theodore MD [address] [place] [address] PCP - General Family Medicine 08/26/20 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 Relationship Specialty Start Date End Date Rodríguez Theodore MD [address] [place] [address] PCP - General Family Medicine 08/26/20 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 Relationship Specialty Start Date End Date Rodríguez Theodore MD [address] [place] [address] PCP - General Family Medicine 08/26/20 FOR RECORDS PERTAINING TO PATIENTS WHO ARE OR HAVE BEEN ENROLLED IN A CHEMICAL DEPENDENCY/SUBSTANCEABUSE PROGRAM, SOME INFORMATION MAY BE OMITTED. This clinical summary was aggregated from multiple sources. Caution should be exercised in using it in the provision of clinical care. This summary normalizes information from multiple sources, and as a consequence, information in this document may materially change the coding, format and clinical context of patient data. In addition, data may be omitted in some cases. CLINICAL DECISIONS SHOULD BE BASED ON THE PRIMARY CLINICAL RECORDS. [facility]. provides no warranty or guarantee of the accuracy or completeness of information in this document.
[2023-04-15 22:18] LABS: Anion Gap 3 (5-15); BUN 21 mg/dL (7-18); BUN/Creat Ratio 29.8 RATIO (10-20); Calcium,Total 9.8 mg/dL (8.5-10.1); Chloride 109 mmol/L (98-107); EST Glomerular Filtration Rate 86 mL/min (>60); Est Glom Filt Rate - Afr Amer 104 mL/min (>60); Glucose 110 mg/dL (74-106); Potassium 3.9 mmol/L (3.5-5.1); Sodium Level 140 mmol/L (136-145)
[2023-04-15 22:20] VITALS: BP 154/69
[2023-04-15 23:20] VITALS: BP 157/73; PULSE 55; RESP 21; O2SAT 99
== END 2023-04-15 23:20 | disposition home or self-care (01) ==
PROVIDERS: Emergency Provider Emergency Medicine; PCP Family Medicine; Visit Provider Emergency Medicine
DX: I10 Essential (primary) hypertension (principal); Z79.899 Other long term (current) drug therapy; E78.00 Pure hypercholesterolemia, unspecified
CPT/HCPCS: 80048; 99282; A4216

== ENCOUNTER 2023-06-16 14:26 | Outpatient (RCR) | payer SELFPAY | END 2023-07-12 23:59 | LOC: NS 14:26 | PROVIDERS: PCP Family Medicine | DX: Z71.3 Dietary counseling and surveillance (principal) ==

== ENCOUNTER 2023-07-13 07:00 | Outpatient (RCR) | payer MEDICARE, OTHER, SELFPAY ==
--- NOTE | 2023-05-31 09:41 | HP.PTEVAL_ITS ---
Patient's Visit Information Visit Information Visit Information: IAIN AZUL is a 78 year old F referred to Physical Therapy by Dr. Judy Prieto DPM with a diagnosis of L Post tib tendonitis dysfunction. Date of Evaluation: 05/31/23 Physical Therapist: Miguel Angel Christie, PT, ATC Visit Plan Frequency: 1-2x /Week Duration: 2 Weeks Plan: Issue and instruct pt over the next 2 visits on HEP of L gastroc stretching and ECC exercises for L ankle Subjective Subjective: Pt reports she has had L foot pain for approximately 2 months. Pt reports he pain had an insidious onset. Pt reports she is not able to walk without shoes on without experiencing significant pain. Pt reports she has worn orthotics for many years. Pt denies any tingling, burning, or numbness in L LE at this time. Pt reports occasional sleep difficulty secondary to pain. 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 Pt denies any recent diagnostic tests at this time. Pt reports her pain is worst when she has to get up in the middle of the night to use the restroom. Pt reports her pain is 0/10 at rest while sitting here in the clinic, but notes it is 7/10 at worst. Pain L foot pain: Pain Intensity (Out of 10): 0 Pain Intensity Range: 7 Objective Objective: Neuro: B LE sensation is WNL to light touch. B patellar reflex= 1/3 Palpation: Pain along the distribution and insertion site of PTT. No obvious deformity at this time. ROM: L ankle DF= 0, PF= 60 degrees; R ankle DF= 7, PF= 60 degrees MMT: L ankle DF=28 , PF= 28 #F; R ankle DF= 25, PF= 46 #F Gait: Pt has early pronation of midfoot on stance phase. Balance/Special Test Scores Lower Extremity Functional Score: 65 Goals Goal 1:: Pt will be I with HEP after 2 visits Goal Time Frame: 2 Weeks Goal 2:: Decrease L LE pain x 50% to aid with ambulation Goal Time Frame: 4-6 Weeks Goal 3:: Increase L ankle DF ROM x 10 degrees to aid with decreasing L LE pain Goal Time Frame: 4-6 Weeks Rehabilitation Potential Physical Therapy Diagnosis: Pt has L foot pain, weakness, and limited DF ROM secondary to L PTTD Rehabilitation Potential: Good Anticipated Interventions Patient/Client Instruction: Educate patient on: Condition and Plan of Care For the Purpose of:: To facilitate caregiver knowledge Therapeutic Exercise to Include: Strength training, Endurance training, Flexibilty training and Active ROM For the Purpose of:: To decrease pain, To increase ROM and To improve muscle performance and motor function Text: Thank you for the opportunity to evaluate your patient. For Medicare and Medicare HMO plans, please review the plan of care and approve it. It will need to be FAXED BACK to us at [phone] for Medicare purposes. For Medicare only, by signing this I certify the plan of care. Please let me know if there are questions or concerns regarding this plan of care. Physician Signature: Date:
--- NOTE | 2023-07-13 07:22 | HP.PTDCSUM ---
Discharge Summary D/C summary: It has been my pleasure to treat IAIN AZUL referred by Dr. Judy Prieto DPM, with the diagnosis of L Post tib tendonitis dysfunction for a total of 4 visit(s). Discharge Date: Please see the following information for a summary of their discharge status. Subjective Subjective: Pt reports no pain today Pain L foot pain: Pain Intensity (Out of 10): 0 Overall Improvement % Improvement: 95 Objective Objective/Function: L foot pain is now 0/10 L ankle DF ROM is 20 degrees Pt is I with HEP Goals Goal 1:: Pt will be I with HEP after 2 visits Goal Progress: Goal Met Goal 2:: Decrease L LE pain x 50% to aid with ambulation Goal Progress: Goal Met Goal 3:: Increase L ankle DF ROM x 10 degrees to aid with decreasing L LE pain Goal Progress: Goal Met Plan Plan: Discharge to [facility] D/C Information d/c sentence: If there are questions or concerns regarding this patient's physical therapy, please feel free to call me at [phone]. Thank you for the referral of this patient. Sincerely, Miguel Angel Christie, PT, ATC Balance/Gait/Functional tests Balance/Special Test Scores Lower Extremity Functional Score: 75 Improvement % Improvement: 95
== END 2023-07-13 08:21 | disposition home or self-care (01) ==
LOC: PT 07:00
PROVIDERS: PCP Family Medicine; Referring Provider Podiatrist; Visit Provider Podiatrist
DX: M67.874 Other specified disorders of tendon, left ankle and foot (principal)
CPT/HCPCS: 97035; 97140; 97161; 97164

== ENCOUNTER → 2023-08-16 | Outpatient (CLI) | payer MEDICARE, OTHER, SELFPAY ==
--- NOTE | 2023-08-16 08:23 | BI_ITS ---
MAMMOGRAPHY - BILATERAL SCREENING REASON FOR EXAM: Female, 78 years old. Routine annual screening examination. PERTINENT HISTORY: Non-contributory. TECHNIQUE: Digital bilateral breast bhumi (3D mammographic acquisition) in the CC and MLO projections. 2-D mediolateral oblique (MLO) and craniocaudad (CC) views of both breasts were obtained. CAD: Full Field Digital Mammography with Computer Added Detection was performed. COMPARISON: Comparison is made with prior study dated August 02, 2022 and July 23, 2021. FINDINGS: Breast Composition: There are scattered areas of fibroglandular density. There are no dominant masses or suspicious calcifications. Stable benign-appearing bilateral axillary lymph nodes. No other significant abnormalities are identified. There has been no significant change since the prior study. BI/SCRN MAMM (CAD)W/BHUMI BILAT IMPRESSION: Stable bilateral screening mammogram. Yearly follow-up mammogram recommended. (A) ASSESSMENT CATEGORY: BIRADS Category 2: Benign. A letter regarding these results will be sent to the patient by the facility within 30 days. Approximately 10% of breast cancers are not detected by mammography. A normal mammogram should not delay biopsy of a clinically suspicious abnormality. [id number] Electronically Signed: Sherman Donovan MD at 9:32 EDT ,
== END | disposition home or self-care (01) ==
LOC: OPBI 08:22
PROVIDERS: PCP Family Medicine; Referring Provider Nurse Practitioner Women's Health; Visit Provider Nurse Practitioner Women's Health
DX: Z12.31 Encounter for screening mammogram for malignant neoplasm of breast (principal)
CPT/HCPCS: 77063; 77067

== ENCOUNTER → 2023-10-05 | Outpatient (CLI) | payer MEDICARE, OTHER, SELFPAY ==
--- NOTE | 2023-10-05 08:18 | CT_ITS ---
STUDY: CT ABDOMEN AND PELVIS WITH AND WITHOUT CONTRAST REASON FOR EXAM: Female, 78 years old. MICROHEMATURIA. History of prior hysterectomy. RADIATION DOSAGE (If Supplied By Facility): CTDIvol = ( 20.3 ) mGy, DLP = ( 2986.91 ) mGycm TECHNIQUE: Transaxial images were obtained from the dome of the diaphragm to the symphysis pubis without oral contrast. IV 100mL Isovue-370 was administered. Sagittal and coronal images were reconstructed. Individualized dose optimization techniques were used for this CT. COMPARISON: None. FINDINGS: The visualized lung bases are unremarkable. Coronary artery calcification. There is decreased attenuation of the liver consistent with steatosis. Normal gallbladder and extrahepatic biliary system. Normal spleen. Normal pancreas. There is a small, circumscribed, smooth, low attenuation left adrenal mass, consistent with an adrenal adenoma. This measures 2.3 cm. Normal right adrenal gland. Punctate nonobstructive calculus in the upper pole calyx of the right kidney. Punctate nonobstructing calculus in a lower pole calyx of the right kidney. Normal left kidney. There is a moderate-sized hiatal hernia. Normal small intestine. There are scattered colonic diverticula consistent with diverticulosis. There is non-visualization of the appendix. There is diffuse atherosclerotic calcification of the abdominal aorta, without a demonstrated aneurysm. Normal inferior vena cava. Normal retroperitoneum. Normal urinary bladder. Calcified phleboliths are seen in the pelvis. Status post hysterectomy. Normal abdominal wall. There are diffuse degenerative changes of the visualized lumbar spine. Levoscoliosis of the lumbar spine. Grade 1 anterolisthesis of L4 on L5. CT/CT Abd/Pelvis W/WO Contrast IMPRESSION: Tiny nonobstructive right intrarenal calculi. Findings suggestive of a 2.3 cm left adrenal adenoma. Fatty infiltration of the liver. Sigmoid diverticulosis. Electronically Signed: Sherman Donovan MD at 10:04 EDT ,
[2023-10-05 08:47] LABS: CREATININE FINGERSTICK < 1.0 mg/dL (0.55-1.02); EGFR FINGERSTICK > 60.0000 mL/min (>60)
== END | disposition home or self-care (01) ==
LOC: CT 08:15
PROVIDERS: PCP Family Medicine; Referring Provider Urology; Visit Provider Urology
DX: R31.29 Other microscopic hematuria (principal)
CPT/HCPCS: 74178; Q9967

== ENCOUNTER → 2024-08-27 | Outpatient (CLI) | payer MEDICARE, OTHER, SELFPAY ==
--- NOTE | 2024-08-27 09:04 | BI_ITS ---
EXAM: SCRN MAMM (CAD)W/BHUMI BILAT DATE: 08/27/2024 CLINICAL HISTORY: F, Age 79 y/o , SCREENING MAMMOGRAM FOR BREAST CANCER No family history. BREAST CANCER RISK ASSESSMENT: No family history. TECHNIQUE: Bilateral screening digital breast tomosynthesis with 2D and 3D images. Computer aided detection. COMPARISON: Prior exam(s) dated August 16, 2023.. FINDINGS: TISSUE DENSITY: The breast tissue is composed of scattered areas of fibroglandular density. Bilateral Breast Mammographic Findings: No significant masses, calcifications or other abnormalities are identified. No suspicious masses, areas of developing architectural distortion, or suspicious calcifications. There has been no significant interval change. BI/SCRN MAMM (CAD)W/BHUMI BILAT IMPRESSION: Stable examination. OVERALL FINAL ASSESSMENT BI-RADS 1: NEGATIVE. RECOMMEND ANNUAL MAMMOGRAPHIC SCREENING. RECOMMENDATION: Routine annual follow-up in 1 Year A letter with findings and recommendations will be mailed to the patient. Reading Location: [place] [address]
== END | disposition home or self-care (01) ==
LOC: OPBI 09:02
PROVIDERS: PCP Family Medicine; Referring Provider Nurse Practitioner Women's Health; Visit Provider Nurse Practitioner Women's Health
DX: Z12.31 Encounter for screening mammogram for malignant neoplasm of breast (principal)
CPT/HCPCS: 77063; 77067

== ENCOUNTER → 2024-09-06 | Outpatient (CLI) | payer MEDICARE, OTHER, SELFPAY ==
--- NOTE | 2024-09-06 09:00 | BD_ITS ---
PROCEDURE: DEXA BONE DENSITY STUDY 09/06/2024 REASON FOR EXAM: OSTEOPOROSIS F, age 79 y/o . Postmenopausal. TECHNIQUE: DEXA BONE DENSITY STUDY COMPARISON: Prior study dated August 18, 2022. FINDINGS: BMD and T-SCORES Lumbar spine: 0.843 g/cm2, T-score -2.0 Levels: L1 through L4 Change from prior: Gain of 13.2%. Left femoral neck: 0.628 g/cm2, T-score -2.0 Femoral neck comparison data not recommended for monitoring change. Left total hip: 0.666 g/cm2, T-score -2.3 Change from prior: Loss of 8.4%. Right femoral neck: 0.657 g/cm2, T-score -1.7 Femoral neck comparison data not recommended for monitoring change. Right total hip: 0.767 g/cm2, T-score -1.4 Change from prior: Improvement by 2.3%. The World Health Organization has defined the following categories based on bone density: Normal bone density: T-score equal to or greater than -1.0 Osteopenia: T-score between -1.0 and -2.5 Osteoporosis: T-score equal to or less than -2.5 The patient does meet the pharmacological treatment recommendations for prevention of osteoporosis. BD/Dexa Bone Density Study IMPRESSION: OSTEOPENIA. Recommend follow-up as clinically warranted. Reading Location: [id number]
== END | disposition home or self-care (01) ==
LOC: OPBD 08:46
PROVIDERS: PCP Family Medicine; Referring Provider Nurse Practitioner Women's Health; Visit Provider Nurse Practitioner Women's Health
DX: Z78.0 Asymptomatic menopausal state (principal)
CPT/HCPCS: 77080

== ENCOUNTER 2024-10-09 07:50 | Emergency (ER) | payer MEDICARE, OTHER, SELFPAY ==
[2024-10-09 07:51] VITALS: BP 150/75; PULSE 88; RESP 16; TEMP 36.8; O2SAT 96; BMI 32.2
--- NOTE | 2024-10-09 07:57 | CT_ITS ---
EXAM: NONCONTRAST CT SCAN OF THE HEAD CLINICAL HISTORY: Head injury, aspirin COMPARISON: None TECHNIQUE: Serial axial series through the head were obtained without contrast. 2-D coronal and sagittal reformats were then obtained. DLP = 796 mGy-cm. FINDINGS: Brain: There is no acute large territorial infarct, intracranial hemorrhage, midline shift or mass effect. There are atherosclerotic vascular calcifications involving the bilateral carotid siphons. The sella and pineal gland regions appear unremarkable. There is no evidence of cerebellar tonsillar herniation. Ventricles: There is no acute hydrocephalus. Basilar cisterns are patent. Paranasal sinuses: Well-aerated Mastoid air cells: Well-aerated. Calvarium: The bony calvarium is intact. Orbits: The bilateral globes are symmetric, without retrobulbar compressive mass lesion or hemorrhage. CT/Brain/Head without Contrast IMPRESSION: No acute intracranial pathology. Reading [facility]
--- NOTE | 2024-10-09 07:57 | CT_ITS ---
PROCEDURE: SPINE CERVICAL WITHOUT CONTRAS 10/09/2024 REASON FOR EXAM: FALL TECHNIQUE: SPINE CERVICAL WITHOUT CONTRAS Coronal and Sagittal reconstruction series were provided. One or more dose reduction techniques were used (e.g., Automated exposure control, adjustment of the mA and/or kV according to patient size, use of iterative reconstruction technique. RADIATION DOSE SUMMARY: DLP: 1295 mGycm COMPARISON: None FINDINGS: Bones: There is loss of the lordosis. There is grade 1 spondylolisthesis at C3- 4, 0.2 cm. There is grade 1 spondylolisthesis at C7-T1, 0.4 cm. There is loss of disc height which is most severe from C4-7. There is no bony spinal stenosis. There is moderate bilateral foraminal narrowing secondary to bony hypertrophy from C4-7. There is no acute fracture. Soft tissues are within normal limits. The facets are aligned. The lung apices are clear. There is no visible atherosclerosis. CT/Spine Cervical without Contras IMPRESSION: There is loss of the lordosis. There is grade 1 spondylolisthesis at C3-4, 0.2 cm. There is grade 1 spondylol isthesis at C7-T1, 0.4 cm. There is loss of disc height which is most severe from C4-7. There is moderate bilateral foraminal narrowing secondary to bony hypertrophy f rom C4-7. There is no visible acute traumatic injury. Reading [facility]
--- NOTE | 2024-10-09 07:58 | EX.ED.GENINJ ---
HPI History of Present Illness Chief Complaint: Fall Detail of Chief Complaint: Fall and head injury Informant: patient and spouse/S.O. Narrative Narrative: Patient presents to the emergency department after sustaining a fall while at [facility] today. She states that she was standing on a exercise ball when she went to step back but fell struck her head on a hard floor. No loss of consciousness. EMS was called for her. She did not ambulate afterwards. Complains of a posterior headache. Denies vision changes. Denies significant neck pain. Denies paresthesias in the extremities. Denies weakness in extremities. Denies chest pain or palpitations. Denies abdominal pain. She is on aspirin and no other anticoagulation. [facility] Medical History Cystocele with prolapse Cancer History of hiatal hernia Heartburn History of edema Arthritis Encounter for screening for malignant neoplasm of colon High cholesterol Restless legs Hypertension History of retinal tear Scoliosis Psoriasis Melanoma Home Medications ?Medication ?Instructions ?Recorded ?Last Taken ?Type calcium 600 mg (as 1 each PO DAILY supplement 05/06/13 10/09/24 History carbonate)-vitamin D3 10 mcg (400 unit) tablet multivitamin 1 tablet PO DAILY vitamin 05/06/13 10/09/24 History rosuvastatin 20 mg tablet (Crestor) 20 mg PO DAILY cholesterol 05/06/13 10/08/24 History biotin 5 mg capsule 5 mg PO DAILY supplement 06/24/20 10/09/24 History aspirin 81 mg tablet,delayed 81 mg PO DAILY heart health 09/03/21 10/09/24 History release loratadine 10 mg tablet (Claritin) 10 mg PO DAILY allergies 08/02/22 10/09/24 History clobetasol 0.05 % topical spray 1 applic topical DAILY PRN 04/15/23 Unknown History (Clobex) itchiness cranberry 500 mg capsule 500 mg PO DAILY 04/15/23 10/09/24 History Prevagen PO 08/16/23 10/09/24 History alendronate 70 mg tablet 70 mg PO QWEEK 10/09/24 10/06/24 History hydrochlorothiazide 12.5 mg tablet 12.5 mg PO DAILY 10/09/24 10/09/24 History metoprolol succinate 100 mg 100 mg PO DAILY 10/09/24 10/09/24 History tablet,extended release 24 hr Allergy/AdvReac Type Severity Reaction Status Date / Time lisinopril Allergy Severe Angioedema Verified 09/03/24 09:25 atorvastatin (From Lipitor) AdvReac Other Verified 09/03/24 09:25 Sulfa (Sulfonamide AdvReac Nausea Verified 09/03/24 09:25 Antibiotics) Family History Mother History of colon resection Uncle Colon cancer Surgical History Hx of total shoulder replacement Hx of colonoscopy H/O rotator cuff surgery History of carpal tunnel surgery H/O: hysterectomy Social History Smoking Status: Never smoker alcohol intake: never substance use type: does not use caffeine: No what type of physical activity do you participate in: walking seatbelt use: always do you feel safe at home: Yes additional social history: Akash- both retired ROS ROS ED Review of Systems ROS Unobtainable: other Constitutional Constitutional ED: Reports lethargy; Denies chills, fever(s), sweats or weight loss Eyes Eyes: Denies blurry vision, change in vision or diplopia ENT ENT ED: Denies rhinorrhea or sore throat Cardiovascular Cardiovascular: Denies chest pain, orthopnea or racing heartbeat Respiratory/Chest Respiratory/Chest: Denies cough, dyspnea, dyspnea on exertion, orthopnea or sputum Gastrointestinal Gastrointestinal: Denies abdominal pain, diarrhea, nausea or vomiting Genitourinary Genitourinary ED: Denies dysuria, hematuria or urinary frequency Musculoskeletal Musculoskeletal: Denies arthralgias, back pain, myalgias or neck pain Integumentary Denies abscess, Abrasions or rash Neurologic Neurologic: Reports headache(s); Denies weakness Psychiatric Psychiatric: Denies anxiety, depression or suicidal thoughts Endocrine Endocrinology: Denies polydipsia, polyphagia or polyuria Hematologic/Lymphatic Hematologic/Lymphatic: Denies easy bleeding, easy bruising or lymphadenopathy Allergic/Immunologic Allergic/Immunologic ED: Denies mouth swelling, tongue swelling or urticaria EXAM Physical Exam Const Vital Signs: 10/09/24 07:51 10/09/24 08:01 Temperature 98.2 F Temperature Source Oral Pulse Rate 88 Respiratory Rate 16 Respiratory Effort Normal Respiratory Depth Normal Respiratory Pattern Normal Blood Pressure 150/75 H Blood Pressure Mean 100 Pulse Ox 96 96 Oxygen Delivery Method Room Air Room Air Positive well nourished and well developed General Appearance ED: well developed and NAD HEENT Reports TM's clear and moist mucous membranes HEENT Narrative: Faint area of erythema posterior occiput. There is no hematoma. No bony step-offs or depressions. normocephalic and atraumatic; Negative for trauma or tenderness Tympanic Membrane ED: Yes TM's clear Eyes PERRL and EOMs intact bilaterally General Eye ED: Negative for pale conjunctiva or scleral icterus Neck full ROM, no lymphadenopathy, supple and no JVD General: Negative for tenderness Chest Wall inspection of chest normal and palpation of chest normal Chest: Negative for tenderness Resp normal respiratory effort and clear to auscultation bilaterally Effort and Inspection: Negative for respiratory distress or pain with movement Auscultation: Negative for rhonchi, wheezes or diminished lung sounds Cardio regular rate, regular rhythm, S1 normal heart sound, S2 normal heart sound and no murmurs Peripheral Pulses: pulses 2+ throughout GI normal to inspection, nondistended, normoactive bowel sounds, soft to palpation, non-tender, non-distended and no masses Back/Spine no CVA tenderness and no thoracic nor lumbar tenderness Extremity normal to inspection General Extremety ED: Negative for edema General Extremity: Negative for edema Neuro oriented x3, CN's II-XII intact bilaterally, no sensory deficits noted and gait normal Sensorium / Orientation: awake, alert, oriented to person, oriented to place and oriented to time Motor Exam: strength 5/5 throughout and strength abnormal Psych mental status grossly normal Skin no rashes or lesions noted and no wounds MDM MDM MDM Narrative Medical decision making narrative: Patient presents the emergency department after sustaining a fall with head injury. Clinically looks well. CT scan of the brain without contrast obtained showed no evidence of skull fracture or intracranial hemorrhage or acute injury pattern. Patient also had CT of the C-spine that showed degenerative changes without acute injury or fracture. This point she ambulated in the department. She will be discharged to home. Advised to follow-up with her primary care physician within the next 3 to 5 days. Vies to return if difficulty with balance or speech or vomiting or severe headache or condition should worsen anyway. Radiography Diagnostic Testing: Clinical Impression(s) from Imaging Studies Brain CT 10/09/24 07:57 IMPRESSION: No acute intracranial pathology. Reading Location: [facility] Cervical Spine CT 10/09/24 07:57 IMPRESSION: There is loss of the lordosis. There is grade 1 spondylolisthesis at C3-4, 0.2 cm. There is grade 1 spondylolisthesis at C7-T1, 0.4 cm. There is loss of disc height which is most severe from C4-7. There is moderate bilateral foraminal narrowing secondary to bony hypertrophy from C4-7. There is no visible acute traumatic injury. Reading Location: [facility] Discharge Plan Triage Chief Complaint: Fall ED Provider: Karissa Valdovinos Dx/Rx/DC Orders Clinical Impression: Fall, Closed head injury Instructions: ED Mechanical Fall, ED Head Injury (Adult) Prescriptions: No Action biotin 5 mg capsule 5 mg PO DAILY loratadine [Claritin] 10 mg tablet 10 mg PO DAILY Prevagen capsule PO multivitamin 1 TABLET tablet 1 tablet PO DAILY rosuvastatin [Crestor] 20 MG tablet 20 mg PO DAILY calcium carbonate-vitamin D3 1 EACH tablet 1 each PO DAILY aspirin 81 mg tablet,delayed release (DR/EC) 81 mg PO DAILY Rx Instructions: Take 81 mg aspirin twice daily for 2 weeks postoperatively for DVT prophylaxis cranberry 500 mg capsule 500 mg PO DAILY Rx Instructions: administer with a meal clobetasol [Clobex] 0.05 % spray,non-aerosol 1 applic topical DAILY PRN (Reason: itchiness) Rx Instructions: not to exceed 26 sprays per single application alendronate 70 mg tablet 70 mg PO QWEEK metoprolol succinate 100 mg tablet extended release 24 hr 100 mg PO DAILY hydrochlorothiazide 12.5 mg tablet 12.5 mg PO DAILY Primary Care Provider: Dwayne Rodgers Referrals: Dwayne Rodgers MD [Primary Care Provider] - 3-5 Days Print Language: German Disposition Disposition: Home, Self Care
[2024-10-09 08:01] VITALS: O2SAT 96
[2024-10-09 09:00] VITALS: BP 148/62; PULSE 72; RESP 18; TEMP 36.7; O2SAT 98
== END 2024-10-09 09:02 | disposition home or self-care (01) ==
PROVIDERS: Emergency Provider Emergency Medicine; PCP Family Medicine; Visit Provider Emergency Medicine
DX: S09.90XA Unspecified injury of head, initial encounter (principal); E78.00 Pure hypercholesterolemia, unspecified; Z79.82 Long term (current) use of aspirin; Z90.710 Acquired absence of both cervix and uterus; I10 Essential (primary) hypertension; W17.89XA Other fall from one level to another, initial encounter; Y93.89 Activity, other specified; Y92.238 Other place in hospital as the place of occurrence of the external cause; Z79.899 Other long term (current) drug therapy; Z96.619 Presence of unspecified artificial shoulder joint
CPT/HCPCS: 70450; 72125; 99284

== ENCOUNTER → 2024-11-05 | Outpatient (CLI) | payer MEDICARE, OTHER, SELFPAY ==
--- NOTE | 2024-11-05 10:08 | RAD_ITS ---
PROCEDURE: ABDOMEN SINGLE VIEW 11/05/2024 REASON FOR EXAM: KIDNEY STONES TECHNIQUE: Two-view supine abdomen COMPARISON: CT abdomen pelvis of 10/05/2023. RAD/Abdomen Single View IMPRESSION: Prominent degenerative changes and levoscoliosis of the lumbar spine again note d. Mild bilateral sacroiliac joint degenerative changes are seen. The bowel-gas pattern is unremarkable. Although limited by overlying stool, no urinary tract calculus is identified. Reading Location: [place] [id number]
== END | disposition home or self-care (01) ==
PROVIDERS: PCP Family Medicine; Referring Provider Urology; Visit Provider Urology
DX: N20.0 Calculus of kidney (principal)
CPT/HCPCS: 74018

== ENCOUNTER 2024-11-20 07:24 | Emergency (ER) | payer MEDICARE, OTHER, SELFPAY ==
[2024-11-20 07:24] VITALS: BP 180/88; PULSE 83; RESP 14; TEMP 36.2; O2SAT 98; BMI 31.7
--- NOTE | 2024-11-20 07:32 | ED.VIS.FALL ---
HPI HPI - Fall History of Present Illness Chief Complaint: Fall Informant: patient Occured/Mechanism Occurred: Yesterday Mechanism/Context: Yes trip Pain/Injury Pain Location: head Quality of Pain: Aching and - (Pressure) Worsened by: Nothing Relieved by: Nothing Associated Symptoms Associated Symptoms: Negative for Parasthesias, Weakness, Loss of function, Inability to ambulate, Loss of consciousness or Amnesia Narrative Narrative: Patient presents after a fall that occurred yesterday. Patient states she fell while walking on the bleachers at the [facility]. Patient hit the back of her head. Patient denies any loss of consciousness. Patient denies any nausea or vomiting. Patient denies any visual changes. Patient does admit to some mild pain in her neck. Patient describes her pain as aching and pressure. Patient states nothing makes it better and nothing makes it worse. [facility] Medical History Adrenal adenoma Urinary tract infection Benign microscopic hematuria Cystocele, midline Kidney stones Cystocele with prolapse Cancer History of hiatal hernia Heartburn History of edema Arthritis Encounter for screening for malignant neoplasm of colon High cholesterol Restless legs Hypertension History of retinal tear Scoliosis Psoriasis Melanoma Home Medications ?Medication ?Instructions ?Recorded ?Last Taken ?Type calcium 600 mg (as 1 each PO DAILY supplement 05/06/13 10/09/24 History carbonate)-vitamin D3 10 mcg (400 unit) tablet rosuvastatin 20 mg tablet (Crestor) 20 mg PO DAILY cholesterol 05/06/13 10/08/24 History biotin 5 mg capsule 5 mg PO DAILY supplement 06/24/20 10/09/24 History aspirin 81 mg tablet,delayed 81 mg PO DAILY heart health 09/03/21 10/09/24 History release loratadine 10 mg tablet (Claritin) 10 mg PO DAILY allergies 08/02/22 10/09/24 History clobetasol 0.05 % topical spray 1 applic topical DAILY PRN 04/15/23 Unknown History (Clobex) itchiness cranberry 500 mg capsule 500 mg PO DAILY 04/15/23 10/09/24 History Prevagen PO 08/16/23 10/09/24 History alendronate 70 mg tablet 70 mg PO QWEEK 10/09/24 10/06/24 History hydrochlorothiazide 12.5 mg tablet 12.5 mg PO DAILY 10/09/24 10/09/24 History metoprolol succinate 100 mg 100 mg PO DAILY 10/09/24 10/09/24 History tablet,extended release 24 hr Allergy/AdvReac Type Severity Reaction Status Date / Time lisinopril Allergy Severe Angioedema Verified 11/20/24 07:25 atorvastatin (From Lipitor) AdvReac Other Verified 11/20/24 07:25 Sulfa (Sulfonamide AdvReac Nausea Verified 11/20/24 07:25 Antibiotics) Family History Mother History of colon resection Uncle Colon cancer Surgical History Hx of total shoulder replacement Hx of colonoscopy H/O rotator cuff surgery History of carpal tunnel surgery H/O: hysterectomy Social History Smoking Status: Never smoker alcohol intake: never substance use type: does not use caffeine: No what type of physical activity do you participate in: walking seatbelt use: always do you feel safe at home: Yes additional social history: Akash- both retired ROS ROS ED Constitutional Constitutional ED: Denies chills or fever(s) Eyes Eyes: Denies blurry vision or change in vision ENT ENT ED: Denies rhinorrhea or sore throat Cardiovascular Cardiovascular: Denies chest pain or palpitations Respiratory/Chest Respiratory/Chest: Denies cough or dyspnea Gastrointestinal Gastrointestinal: Denies nausea or vomiting Genitourinary Genitourinary ED: Denies dysuria or hematuria Musculoskeletal Musculoskeletal: Reports neck pain; Denies back pain Integumentary Denies abscess or rash Neurologic Neurologic: Reports headache(s); Denies weakness Allergic/Immunologic Allergic/Immunologic ED: Denies mouth swelling or urticaria EXAM Physical Exam Const Vital Signs: 11/20/24 07:24 11/20/24 07:52 Temperature 97.1 F L Temperature Source Temporal Pulse Rate 83 Respiratory Rate 14 Respiratory Effort Normal Respiratory Depth Normal Respiratory Pattern Normal Blood Pressure 180/88 H Blood Pressure Mean 118 Pulse Ox 98 97 Oxygen Delivery Method Room Air Room Air Positive well nourished and well developed General Appearance ED: well developed and NAD HEENT Reports normocephalic Eyes PERRL and EOMs intact bilaterally Neck full ROM and supple General: Negative for tenderness Resp normal respiratory effort and clear to auscultation bilaterally Cardio regular rate and regular rhythm GI non-tender and non-distended Neuro oriented x3, CN's II-XII intact bilaterally, moves all extremities, no focal motor deficits and no sensory deficits noted Dipti Coma Scale: document GCS findings Spontaneous Obeys Commands Oriented 15 Sensorium / Orientation: alert Motor Exam: strength 5/5 throughout Psych mental status grossly normal MDM MDM MDM Narrative Medical decision making narrative: Differential diagnosis includes closed head injury, intracranial bleeding, fracture. CT scan of the brain will be obtained to assess for intracranial bleeding. History & Record Review Additional record(s) reviewed:: Prior outpatient record, Prior ED visit and Prior labs Radiography Diagnostic Testing: Clinical Impression(s) from Imaging Studies Brain CT 11/20/24 07:43 IMPRESSION: 1. No evidence of intracranial hemorrhage or acute ischemia. 2. Changes of chronic microvascular ischemia and volume loss. Reading Location: [id number] CT scan of the brain was obtained. There is no acute intracranial abnormality. There are some chronic changes noted. This was interpreted by the radiologist and was also independently reviewed by myself. Treatment and Re-Evaluation Narrative: Patient was advised of her findings. Patient was instructed to take Tylenol or ibuprofen as needed for any headaches. Patient was instructed to follow-up with her primary care physician in 5 to 7 days. Patient understood and was agreeable with the plan. All questions were answered. Discharge Plan Triage Chief Complaint: Fall ED Provider: Gaurav Milner Dx/Rx/DC Orders Clinical Impression: Closed head injury, Fall Instructions: ED Head Injury (Adult) Prescriptions: No Action biotin 5 mg capsule 5 mg PO DAILY loratadine [Claritin] 10 mg tablet 10 mg PO DAILY Prevagen capsule PO rosuvastatin [Crestor] 20 MG tablet 20 mg PO DAILY calcium carbonate-vitamin D3 1 EACH tablet 1 each PO DAILY aspirin 81 mg tablet,delayed release (DR/EC) 81 mg PO DAILY Rx Instructions: Take 81 mg aspirin twice daily for 2 weeks postoperatively for DVT prophylaxis cranberry 500 mg capsule 500 mg PO DAILY Rx Instructions: administer with a meal clobetasol [Clobex] 0.05 % spray,non-aerosol 1 applic topical DAILY PRN (Reason: itchiness) Rx Instructions: not to exceed 26 sprays per single application alendronate 70 mg tablet 70 mg PO QWEEK metoprolol succinate 100 mg tablet extended release 24 hr 100 mg PO DAILY hydrochlorothiazide 12.5 mg tablet 12.5 mg PO DAILY Primary Care Provider: Dwayne Rodgers Referrals: Dwayne Rodgers MD [Primary Care Provider] - 5-7 Days Print Language: Canadian Disposition Disposition: Home, Self Care
--- NOTE | 2024-11-20 07:43 | CT_ITS ---
PROCEDURE: BRAIN/HEAD WITHOUT CONTRAST 11/20/2024 REASON FOR EXAM: INJURY/PAIN TECHNIQUE: Procedure Code: CTBR Modality: CT Procedure: BRAIN/HEAD WITHOUT CONTRAST Coronal and Sagittal reconstruction series were provided. One or more dose reduction techniques were used (e.g., Automated exposure control, adjustment of the mA and/or kV according to patient size, use of iterative reconstruction technique. RADIATION DOSE SUMMARY: CTDlvol: 45 mGy DLP: 779 mGycm COMPARISON: October 09, 2024 FINDINGS: Brain: There is no evidence of hemorrhage, acute ischemia or mass. No extra- axial fluid collection, midline shift or mass effect. Mild low-density in the periventricular white matter. CSF Spaces: Mild generalized cerebral atrophy Sinuses/Mastoids: Clear Bones: No fracture CT/Brain/Head without Contrast IMPRESSION: 1. No evidence of intracranial hemorrhage or acute ischemia. 2. Changes of chronic microvascular ischemia and volume loss. Reading Location: [id number]
[2024-11-20 07:52] VITALS: O2SAT 97
[2024-11-20 08:24] VITALS: PULSE 81; RESP 17; O2SAT 98
[2024-11-20 08:41] VITALS: BP 180/88; PULSE 81; RESP 17; TEMP 36.2; O2SAT 98
== END 2024-11-20 08:44 | disposition home or self-care (01) ==
PROVIDERS: Emergency Provider Emergency Medicine; PCP Family Medicine; Visit Provider Emergency Medicine
DX: S09.90XA Unspecified injury of head, initial encounter (principal); E78.00 Pure hypercholesterolemia, unspecified; I10 Essential (primary) hypertension; W17.89XA Other fall from one level to another, initial encounter
CPT/HCPCS: 70450; 99282